=== PATIENT | female | born 1945 | race Caucasian/White ===

== ENCOUNTER → 2023-12-16 12:14 | Outpatient (REF) | payer OTHER, SELFPAY ==
[2023-12-16 13:12] LABS: Hematocrit 33.1 % (37.0-47.0); Hemoglobin 9.9 g/dL (12.0-16.0); Mean Corp Hgb Conc. 29.9 g/dL (33.0-37.0); Mean Corpuscular Hgb 28.7 pg (27.0-31.0); Mean Corpuscular Volume 95.9 fL (81.0-99.0); Mean Platelet Volume 10.7 fL (7.4-10.4); Platelet Count 189 10^3/uL (130-400); Red Blood Cell Count 3.45 10^6/uL (4.20-5.40); Red Cell Dist. Width 13.5 % (11.5-14.5); White Blood Cell Count 6.9 10^3/uL (4.8-10.8)
[2023-12-16 13:28] LABS: ALT (SGPT) 12 U/L (0-35); AST (SGOT) 19 U/L (14-36); Albumin 3.7 g/dl (3.5-5.0); Alkaline Phosphatase 57 U/L (38-126); Blood Urea Nitrogen 21 mg/dl (7-17); Carbon Dioxide 39 mmol/L (22-30); Chloride 99 mmol/L (98-107); Glucose 89 mg/dl (70-99); HDL Cholesterol 52 mg/dl; LDL Cholesterol, Calculated 65 mg/dl; Potassium 4.3 mmol/L (3.5-5.1); Sodium 141 mmol/L (135-145); Total Bilirubin 0.3 mg/dl (0.2-1.3); Total Cholesterol 134 mg/dl (50-199); Total Protein 6.5 g/dl (6.3-8.2); Triglyceride 85 mg/dl (10-149); Very Low Density Lipoprotein 17 mg/dl (0-30); eGFR > 60.00
[2023-12-16 13:41] LABS: Vitamin D, 25-OH*** 46.7 ng/mL (30-80)
[2023-12-16 14:27] LABS: Iron 46 ug/dl (37-170)
[2023-12-16 15:00] LABS: Vitamin B12 345 pg/ml (239-931)
== END ==
LOC: OLABN 12:14
PROVIDERS: ATTENDING PHYSICIAN Internal Medicine Geriatric Medicine
DX: E78.5 Hyperlipidemia, unspecified (principal); J44.9 Chronic obstructive pulmonary disease, unspecified; E55.9 Vitamin D deficiency, unspecified
CPT/HCPCS: 36415; 80053; 80061; 82306; 82607; 83540; 85027

== ENCOUNTER → 2023-12-30 11:02 | Outpatient (REF) | payer OTHER, SELFPAY ==
[2023-12-30 11:18] LABS: % Basophils 0.9 % (0-2); % Eosinophils 2.2 % (0-6); % Immature Granulocytes 0.2 % (0-0.5); % Lymphocytes 25.6 % (20.5-51.1); % Monocytes 7.3 % (1.7-9.3); % Neutrophils 63.8 % (42.2-75.2); Absolute Basophils 0.1 10^3/uL (0-0.2); Absolute Eosinophils 0.1 10^3/uL (0-0.7); Absolute Lymphocytes 1.5 10^3/uL (1.2-3.4); Absolute Monocytes 0.4 10^3/uL (0.1-0.6); Absolute Neutrophils 3.7 10^3/uL (1.4-6.5); Hematocrit 31.2 % (37.0-47.0); Hemoglobin 9.6 g/dL (12.0-16.0); Mean Corp Hgb Conc. 30.8 g/dL (33.0-37.0); Mean Corpuscular Hgb 28.5 pg (27.0-31.0); Mean Corpuscular Volume 92.6 fL (81.0-99.0); Mean Platelet Volume 10.5 fL (7.4-10.4); Nucleated Red Blood Cells % 0 %; Platelet Count 193 10^3/uL (130-400); Red Blood Cell Count 3.37 10^6/uL (4.20-5.40); Red Cell Dist. Width 13.6 % (11.5-14.5); White Blood Cell Count 5.9 10^3/uL (4.8-10.8)
== END ==
LOC: OLABN 11:02
PROVIDERS: ATTENDING PHYSICIAN Internal Medicine Geriatric Medicine
DX: D64.9 Anemia, unspecified (principal)
CPT/HCPCS: 36415; 85025

== ENCOUNTER → 2024-01-13 09:13 | Outpatient (REF) | payer MEDICARE, SELFPAY ==
[2024-01-13 10:41] LABS: Hematocrit 32.2 % (37.0-47.0); Hemoglobin 9.9 g/dL (12.0-16.0); Mean Corp Hgb Conc. 30.7 g/dL (33.0-37.0); Mean Corpuscular Volume 94.4 fL (81.0-99.0); Mean Platelet Volume 10.7 fL (7.4-10.4); Platelet Count 181 10^3/uL (130-400); Red Blood Cell Count 3.41 10^6/uL (4.20-5.40); Red Cell Dist. Width 13.5 % (11.5-14.5); White Blood Cell Count 6.1 10^3/uL (4.8-10.8)
== END ==
LOC: OLABN 09:13
PROVIDERS: ATTENDING PHYSICIAN Internal Medicine Geriatric Medicine
DX: D64.9 Anemia, unspecified (principal)
CPT/HCPCS: 36415; 85027

== ENCOUNTER 2024-01-13 17:05 | Observation (INO) | payer MEDICARE, SELFPAY ==
[2024-01-13] VITALS (7 sets, daily range): BP systolic 98–168; BP diastolic 49–87; BMI 28.7; BMI 28.3
[2024-01-13 14:12] LABS: % Basophils 0.9 % (0-2); % Eosinophils 1.6 % (0-6); % Immature Granulocytes 0.2 % (0-0.5); % Lymphocytes 16.7 % (20.5-51.1); % Monocytes 5.2 % (1.7-9.3); % Neutrophils 75.4 % (42.2-75.2); Absolute Basophils 0.1 10^3/uL (0-0.2); Absolute Eosinophils 0.1 10^3/uL (0-0.7); Absolute Lymphocytes 1.4 10^3/uL (1.2-3.4); Absolute Monocytes 0.4 10^3/uL (0.1-0.6); Absolute Neutrophils 6.2 10^3/uL (1.4-6.5); Hematocrit 35.4 % (37.0-47.0); Hemoglobin 11.1 g/dL (12.0-16.0); Mean Corp Hgb Conc. 31.4 g/dL (33.0-37.0); Mean Corpuscular Hgb 28.5 pg (27.0-31.0); Mean Corpuscular Volume 90.8 fL (81.0-99.0); Nucleated Red Blood Cells % 0 %; Platelet Count 211 10^3/uL (130-400); Red Cell Dist. Width 13.5 % (11.5-14.5); White Blood Cell Count 8.2 10^3/uL (4.8-10.8)
[2024-01-13 14:23] LABS: APTT 29.7 Sec (23.4-35.0)
[2024-01-13 14:30] LABS: ALT (SGPT) 14 U/L (0-35); AST (SGOT) 22 U/L (14-36); Albumin 4.3 g/dl (3.5-5.0); Alkaline Phosphatase 61 U/L (38-126); Blood Urea Nitrogen 21 mg/dl (7-17); Calcium 9.5 mg/dl (8.4-10.2); Carbon Dioxide 37 mmol/L (22-30); Chloride 99 mmol/L (98-107); Glucose 105 mg/dl (70-99); Potassium 4.3 mmol/L (3.5-5.1); Sodium 141 mmol/L (135-145); Total Bilirubin 0.3 mg/dl (0.2-1.3); Total Protein 7.7 g/dl (6.3-8.2); eGFR > 60.00
--- NOTE | 2024-01-13 14:44 | CON.NEURO4 ---
Addendum entered and electronically signed by Everette Wheatley MD 01/13/24 17:26:
I saw and evaluate the patient I reviewed the note by Mary Lima agree with the following the findings with the following comments:
78-year-old woman with a past ministry of hyperlipidemia presented to hospital after referral from ophthalmology due to painless significant right eye vision loss that started on Saturday. Patient has a history of baseline visual difficulties from
dry macular degeneration. Her right eye vision seem to be very urbina with poor color and light and this began on 01/09 spontaneously without any provocation no head or neck trauma or injuries to the eye. No unusual headaches or jaw claudication
recently no fevers chills or unusual weight loss. She denies any history of migraine headaches with photophobia phonophobia or significant head pain with nausea or limitation in function. No history of TIA or stroke or heart attack. She does take
statin but does not take any medications for blood pressure.
Neurologic examination shows normal mental status
Pupils have significant pharmacologic dilation, no hemianopia speech dysarthria smile symmetric tongue midline
Motor examination no pronator drift no abnormal movements or focal asymmetric weakness
CT head noncontrast unremarkable
Assessment: Concern for a central retinal artery versus branch retinal artery occlusion on the right, less likely a left-sided occipital ischemic stroke. Outpatient ophthalmology evaluation we can feel fairly confident and excluded any other
primary ophthalmic issues.
Recommendations
-DAPT therapy
-Cardiac telemetry
-Transthoracic echocardiogram
-Brain MRI and MRA head and neck
-Neurologic check NIH scale
-Hemoglobin A1c and lipid panel
Will follow
Original Note:
Documented by User: Mary Dobbins NP 01/13/24 15:44
Consultation - Neurology 4
-
CONSULTING PHYSICIAN: Oma Wheatley MD
REFERRING PHYSICIAN: MARTIN/Lucio Limon PA-C
DICTATED BY: RORY Crowder
DATE/TIME OF REQUEST: 01/13/24
DATE/TIME OF CONSULTATION: 01/13/24
Reason for Consultation: Right eye vision loss
History of Present Illness:
This is a 78-year-old right-handed female who has presented to the hospital with report of right eye vision loss. At baseline, patient has bilateral dry macular degeneration. Her left eye vision is poor but she can read large print with it. Her
right eye vision is her worse eye and at baseline she only can see colors, light, and general shadows of things. Patient reports being in her usual state three days ago on 01/10/24. When she returned to her room that evening, she reports feeling
'weird,' which she can't describe further, and suddenly her right eye vision became a dim urbina, then went completely black. She informed staff at [facility] and was told to schedule an appointment with her machine feeder Dr. Stoll as soon as
possible. She saw Dr. Stoll today, who reported not seeing any structural issue with her eyes on exam, and referred her to the ER for evaluation. CT head noncontrast is pending. She is not a candidate for TNK/IAT due to being outside of the time
window. She denies any headache, dizziness, speech/swallow difficulty, jaw pain with chewing, numbness, weakness, nausea, chest pain, palpitations, and shortness of breath. She denies any history of migraine, unusual weight loss, TIA, stroke, or
vision loss like this in the past. She is not taking any blood-thinning medications. At baseline she wears home oxygen and for the past two years she has used a rolling walker for ambulation. She reports that when she walks 10+ feet she becomes
short of breath and bilateral legs start feeling week.
Past Medical History: HTN, HLD, COPD, bilateral dry macular degeneration, breast cancer, depression, anxiety, insomnia, lumbar radiculopathy, sensorineural hearing loss, solitary pulmonary nodule
Surgical History: Left mastectomy, intraocular lens implant
Family History: Sister- CVA.
Social History: Former smoker x40 years, quit 6 years ago. Denies alcohol and illicit drug use.
Allergies: No known allergies.
Home Medications: See below.
Review of Symptoms:
Patient denies any fever, headache, chest pain, shortness of breath, GI or symptoms.
�Per the HPI.�All systems are reviewed negative except above.
Physical Exam:
The patient is afebrile, abdomen is nondistended, breathing is unlabored, skin is warm and dry, no edema.
NIH Stroke Scale:
I performed the NIH stroke scale on the patient on 01/13/24 at 1515. The patient scored 2 points on the NIH stroke scale assessment, which were assigned as follows: See below.
Neurologic Examination:
The patient is awake, alert and oriented x 3. She is able to follow commands and answer questions appropriately. There is no aphasia or dysarthria. On cranial nerve assessment, pupils were dilated today and are 5 mm bilateral, round and minimally
to light and accommodation. Visual beal are absent in the right eye, intact in the left eye. Extraocular movements are intact. Facial sensations are intact and bilaterally symmetrical, there is no facial asymmetry. Hearing is intact bilaterally to
normal conversation volume. Tongue palate and uvula are midline. Sternocleidomastoid strengths are full bilaterally. Motor strengths are 5/5 bilateral upper and lower extremities on medical research [place] scale. There is no drift or involuntary
movement noted. Deep tendon reflexes are 2+ bilateral upper and lower extremities and Babinski is absent bilaterally. Sensations of touch, temperature and vibration are intact and bilaterally symmetrical. There was no extinction noted on double
simultaneous stimulation. Coordination is intact by finger to nose bilaterally.
Lab Results: See below.
Neuro Imaging:
1. CT Head 01/13/24: pending.
Differentials for the patient's presentation include:
1. Right eye BRAO likely producing right eye vision loss.
2. R ICA stenosis possible but less likely to be producing symptoms as no previous episodes of amaurosis fugax.
3. Ischemic stroke to the occipital lobe less likely given one-sided symptoms.
Patient has the following risk factors for their symptoms: HTN, HLD, macular degeneration
IV Tenecteplase/IAT candidacy: Not a candidate due to outside of time window.
Recommendations:
-Provide loading dose of aspirin 325mg and Plavix 300mg x1 now.
-Continue DAPT for 21 days. After 21 days, discontinue Plavix and continue aspirin 81mg daily only, indefinitely.
-CT head noncontrast pending.
-MRI brain noncontrast, MRA head/neck pending.
-Provide lorazepam 1mg IV x1 on-call for MRI due to claustrophobia.
-Goal normotension.
-LDL goal <70. Lipid panel pending. Continue home rosuvastatin 20mg daily for now.
-Goal normoglycemia, hbA1c pending.
-NIHSS and neurological checks per unit guidelines.
-PT/OT evaluations.
-Provide patient with a stroke education packet.
-DVT prophylaxis.
-Will follow.
Discussed patient care with: Dr. Wheatley, the patient, patient's family
Vital Signs and Labs
-
Vital Signs and Labs:
Vital Signs
Temp Pulse Resp BP Pulse Ox
98.2 F 92 18 125/71 92
01/13/24 13:53 01/13/24 13:53 01/13/24 13:53 01/13/24 14:46 01/13/24 13:53
Lab Results
01/13/24 14:03
01/13/24 14:03
PT 13.0 Sec (11.4-14.6) 01/13/24 14:03
INR 1.00 01/13/24 14:03
APTT 29.7 Sec (23.4-35.0) 01/13/24 14:03
Sodium 141 mmol/L (135-145) 01/13/24 14:03
Potassium 4.3 mmol/L (3.5-5.1) 01/13/24 14:03
BUN 21 mg/dl (7-17) H 01/13/24 14:03
Glucose 105 mg/dl (70-99) H 01/13/24 14:03
Calcium 9.5 mg/dl (8.4-10.2) 01/13/24 14:03
NIH Stroke Score
Subsequent NIH Scale
Date of Subsequent NIH Scale: 01/13/24
Time of Subsequent NIH Scale: 15:15
NIH Stroke Score
Level of Consciousness: 0 - Alert
LOC Questions: 0-Answers both correctly
LOC Commands: 0-Performs both correctly
Best Horizontal Gaze: 0-Normal
Visual Beal: 2=Full hemianopia
Facial Palsy: 0=Normal, symmetrical
Motor - Right Arm: 0=No drift 10 seconds
Motor - Left Arm: 0=No drift 10 seconds
Motor - Right Le-No drift 5 seconds
Motor - Left Le-No drift 5 seconds
Limb Ataxia: 0-Absent
Sensation: 0-Normal
Best Language: 0-No aphasia
Dysarthria: 0-Normal
Extinction and Inattention: 0-No abnormality
Total Score:: 2
Modified [place] (mRS) Score
Modified [place] Scale (mRS): No significant disability. Able to carry out usual activities.
Score: 1
Alteplase Contraindication
Inclusion and Exclusion criteria reviewed: Yes
Reasons for NON-Tx with Thrombolytics ABSOLUTE Exclusions: Greater than 4.5 hrs from onset of sxs

Documented by User: Everette Wheatley MD 01/13/24 17:24
NIH Stroke Score
NIH Stroke Score
Total Score:: 2
Modified [place]i (mRS) Score
Score: 1
--- NOTE | 2024-01-13 15:31 | ED.CVA ---
History of Present Illness
General
Chief Complaint: CVA/TIA Symptoms
Source: patient and records
Time Seen by Provider: 01/13/24 14:13
Onset of Stroke Symptoms
Onset of symptoms known: Yes
Date of onset of symptoms: 01/10/24
Travel History
Have you had any contact with someone who has COVID-19?: No
Do you have any symptoms of coronavirus? Fever > 100 degrees, chills, cough, shortness of breath, sore throat, loss of taste or smell, muscle aches, or headache?: No
History of Present Illness
History of Present Illness:
78-year-old female with past medical history of COPD and macular degeneration presenting to the emergency department for evaluation after she was seen by her chief ii dispatcher today who was concerned that patient may have had a central retinal artery
occlusion in the right eye. Patient states on Saturday evening she noticed she was unable to see anything out of her right eye (notes due to her macular degeneration she already has very poor vision out of this right eye but is still able to see
shapes and shadows but is no longer able to see this). Patient states that this was painless and has not had any headaches since. She attributed the vision changes to her macular degeneration which is why she did not present to the sooner. She
continues to deny any headaches, focal weakness or numbness, chest pain or shortness of breath, palpitations or any other concerns. Patient is currently not on any anticoagulant medication or aspirin.
Past History
Past History
ED Past Medical History: Cancer, COPD and Other (Macular degeneration)
ED Past Surgical History: Other (L masectomy)
Social History
Tobacco: Former smoker
Alcohol: None
Drug: None
Personal:
Living: snf
Employment: Other
Family History
Family History: Other
Review of Systems
Review of Systems
All Other Systems: ROS reviewed and negative except as documented in HPI and ROS
Phy Exam
Physical Exam
Physical Exam:
GENERAL: Alert , in no apparent distress
EYE: conjunctiva clear, Pupils 4 mm bilateral, patient with minimal to no vision in the right eye, left eye gross vision patient reports at its baseline
NECK: Supple, no carotid bruit
ENT: o/p clr, mmm.
CARDIAC: Regular rate and rhythm, no murmur
LUNGS: Clear breath sounds bilaterally, no acute respiratory distress, no wheezes/rales/rhonchi
NEUROLOGICAL: Alert and oriented x 3, moves all extremities, ambulates with steady gait
SKIN: Warm and dry, skin intact.
MUSCULOSKELETAL: well perfused.
PSYCH: Normal and appropriate interaction.
Scores
NIH Stroke Score
Level of Consciousness: 0 - Alert
LOC Questions: 0-Answers both correctly
LOC Commands: 0-Performs both correctly
Best Horizontal Gaze: 0-Normal
Visual Beal: 2=Full hemianopia
Facial Palsy: 0=Normal, symmetrical
Motor - Right Arm: 0=No drift 10 seconds
Motor - Left Arm: 0=No drift 10 seconds
Motor - Right Le-No drift 5 seconds
Motor - Left Le-No drift 5 seconds
Limb Ataxia: 0-Absent
Sensation: 0-Normal
Best Language: 0-No aphasia
Dysarthria: 0-Normal
Extinction and Inattention: 0-No abnormality
Total Score:: 2
Thrombolytic Contraindication
Inclusion and Exclusion criteria reviewed: Yes
Reasons for NON-Tx with Thrombolytics ABSOLUTE Exclusions: Greater than 4.5 hrs from onset of sxs
Heart Failure Risk
Heart Failure Risk Score: Not Applicable
Heart Score for Chest Pain Patients
STEMI patient?: Not applicable
Withdrawal Assessment of Alcohol
Withdrawal Assessment Completed?: Not applicable
Course
Orders/Labs/Results
Orders:
Orders
01/13/24 13:[address] [CT Head W/o Iv Contrast] Urgent
Comment:
Reason For Exam: right eye blindness
01/13/24 14:03
C-Reactive Protein Urgent
Comment: ADD ON
Complete Blood Count/With Diff Urgent
Comprehensive Metabolic Panel Urgent
Erythrocyte Sed Rate Urgent
Comment: ADD ON
Protime/PTT Urgent
01/13/24 14:19
Electrocardiogram (*1) Urgent
Reason for Study: TIA/Stroke
EKG- Treatment ONCE
01/13/24 14:23
Add On- LAB Urgent
Tests Added?: esr/crp
01/13/24 15:26
MA Neck With & W/o Contrast Routine
Comment:
Reason For Exam: right eye copmlete vision loss
Recent pill cam endoscopy?: No
MR Brain Without Contrast Routine
Comment:
Reason For Exam: right eye complete vision loss
Recent pill cam endoscopy?: No
01/13/24 15:27
MA [place] [facility] Routine
Comment:
Reason For Exam: stroke workup
Recent pill cam endoscopy?: No
01/13/24 15:29
Aspirin 325 mg PO NOW STA
Clopidogrel Bisulfate [Plavix] 300 mg PO NOW STA
01/13/24 15:38
0.9% Sodium Chloride [Nss (Preservative Free)] 0.5 ml IV PRN ONE
Lorazepam [Ativan] 1 mg IV PRN ONE
01/13/24 16:36
NEUROLOGY CONSULT Routine
Consulting Provider: Everette Wheatley
Was physician already notified: Yes
Reason for consult: worsening right eye vision impairment
01/13/24 16:57
Admit/Transfer Patient As Directed
Co-Sign Provider:
Level of Care: Observation services
Assign to:: Telemetry
Physician / Group: rachna marie
Diagnosis: right eye vision loss concern cva vs ica stenosis
Reason for Telemetry: CVA/TIA
Date to Stop Telemetry: 01/16/24
Time to Stop Telemetry: 11:00
Reason for Hospitalization: right eye vision loss concern cva vs ica stenosis
Expected length of stay greater than two midnights?: No
01/13/24 17:03
Code Status As Directed
Resuscitation Status: Do not resuscitate
Reached after discussion with pt or family/Healthcare POA: Yes
Based on pt advanced directive or healthcare POA form: Yes
Decision communicated with: per pt with daughter present
DNR Bracelet Application ONCE
01/16/24 11:00
DC Protocol for Telemetry ONCE
Abnormal Lab Results
01/13/24
14:03
RBC 3.90 L 10^6/uL
(4.20-5.40)
Hgb 11.1 L g/dL
(12.0-16.0)
Hct 35.4 L %
(37.0-47.0)
MCHC 31.4 L g/dL
(33.0-37.0)
Neutrophils % 75.4 H %
(42.2-75.2)
Lymphocytes % 16.7 L %
(20.5-51.1)
ESR 30 H mm/hour
(0-20)
Carbon Dioxide 37 H mmol/L
(22-30)
BUN 21 H mg/dl
(7-17)
Creatinine 0.5 L mg/dL
(0.6-1.0)
Glucose 105 H mg/dl
(70-99)
01/13/24 14:03
01/13/24 14:03
Vital Signs
Initial and Last Documented VS:
Initial Vital Signs
Temp Pulse Resp BP Pulse Ox
98.2 F 92 18 134/68 92
01/13/24 13:53 01/13/24 13:53 01/13/24 13:53 01/13/24 13:53 01/13/24 13:53
Last Documented Vital Signs
Temp Pulse Resp BP Pulse Ox
98.2 F 85 14 134/53 92
01/13/24 13:53 01/13/24 15:15 01/13/24 15:15 01/13/24 15:01 01/13/24 13:53
MDM/Problems Addressed
Differential Diagnosis Includes:
CVA, giant cell arteritis, worsening macular degeneration
MDM/Problems Addressed:
78-year-old female presenting to the emergency department for evaluation of right eye visual loss since Saturday. Symptoms are not improved and persistent. Seen by ophthalmology today and was noted to not have any significant ophthalmologic
complications and there was concern for central retinal artery occlusion/ocular stroke. Labs and CT imaging ordered. Will consult with neurology. Anticipate admission for further evaluation and treatment.
*Radiology
Radiology exam reviewed: radiology read reviewed
*Pulse Oximetry
Patient hypoxic: no
*EKG
Interpreted by ED Provider?: Yes
Comparison EKG: no changes
Heart Rate: 71
Rate: normal
Rhythm: sinus
Ischemia: no ischemia
*Social Media Content Manager Interpretation
Rate: normal
Rhythm: sinus
*Critical Care Note
Total Time (30-74mins, 75-104mins- exclusive of procedures): Not Applicable
Patient Management
Discussion with other providers: Hospitalist and Sleep Medicine Physician
Escalation/DeEscalation of care consider admission/obs:
Patient seen by neurology who recommends MRI/MRA. They would like aspirin and Plavix loading. This was ordered in the emergency department. Hospitalist team was notified and accepts for continued evaluation and treatment of suspected CVA
ED Attending Note
-
Portions of this chart may have been created with voice recognition software.� Occasional wrong word or��sound alike� substitutions may have occurred due to the inherent limitations of voice recognition software.
Discharge Plan
Departure
Patient Disposition: Admit
Date of Disposition: 01/13/24
Time of Disposition: 15:31
Presentation/result/management discussed w/ accepting MD/DO: Hospitalist
Discharge Problem:
Acute CVA (cerebrovascular accident)
Interventions
Interventions:
*Risk Screen - Suicide Last Done: 01/13/24 13:53
*General Assessment Last Done: 01/13/24 13:53
*Neglect/Abuse Screening Last Done: 01/13/24 13:53
ED- Fall Risk Assessment Last Done: 01/13/24 17:26
*ED COVID-19 Vaccine History Last Done: 01/13/24 13:53
ED- Cardiac Assessment Last Done: 01/13/24 17:24
ED- Neurological Assessment Last Done: 01/13/24 14:47
ED- Pulmonary Assessment Last Done: 01/13/24 14:50
ED Swallowing Screen Last Done: 01/13/24 14:46
[2024-01-13] MEDS: ASPIRIN 325 MG PO (15:53)
[2024-01-13] MEDS: PLAVIX 300 MG PO (15:53)
--- NOTE | 2024-01-13 16:33 | HPS.HSE ---
Addendum entered and electronically signed by Telly Littlejohn MD 01/13/24 17:15:
Seen and examined by me independently in collaboration with the nurse practitioner Cynthia.
Past medical history/social history/medication/allergies reviewed.
Lab data and imaging data reviewed.
Patient with bilateral macular degeneration worse on the right side presented with right-sided monocular complete vision loss since Saturday. Saw director of psychology today who did not apparently feel any primary ophthalmic issue and sent him to ER for
stroke evaluation. Denies any other associated neurological deficit currently. Nonfocal neurologically other than the visual loss.
She does have risk factors for hyperlipidemia and hypertension but no prior history of strokes. No history of diabetes mellitus.
Admit to hospital for stroke workup. Initial CT head shows no evidence of acute strokes or bleeding.
Seen by neurology. Initiated on DAPT. MRI of the brain and MRA of the head and neck requested.
No clinical symptomatology of GA arteritis. Check ESR and CRP.
Original Note:
Family Physician
-
Family Physician: [facility]
Chief Complaint
-
Acute onset right eye vision loss x 3 days
History of Present Illness
78-year-old female complaining of abrupt onset right eye vision loss worse than baseline where she can only see colors, light and shapes. This occurred on 01/10/2024 and has not improved. She also has left eye vision impairment can only be large
print secondary to dry macular degeneration. She reports her right eye vision became medium grade and went completely black she informed staff extremity monitor and was advised to make an appointment with director of psychology whom she saw today. He do
not see any structural issues with iron and referred her to evaluation in the ER. She denies headache, dizziness, weakness, chest pain, palpitations, shortness breath or cough, abdominal pain, nausea, vomiting, diarrhea, urinary symptoms. She is
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
breast cancer, lumbar radiculopathy, chronic ambulatory dysfunction uses rollator at baseline
Medical History
Past Medical History
Past Medical History: Reports Other
Additional Past Medical History:
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
hearing loss
HTN
HLD
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
former smoker x 40 years quit 6 years ago
depression
anxiety
insomnia
breast cancer with left lumpectomy
lumbar radiculopathy
chronic ambulatory dysfunction uses rollator at baseline
Past Surgical History: Reports Other (Left breast lumpectomy secondary to breast cancer 20 years ago Bilateral Cataract extraction with lens implants)
Social History
Tobacco: Former Smoker (40-year 1 pack a day, quit 6 years ago)
Alcohol: None
Drug: None
Personal: Single
Living: Intermediate ([facility])
Employment: Retired
Family History
Family History: Other (Sister CVA age 70, mother lung cancer, father age 95 old age, history of dementia)
Allergies / Home Medications
Allergies reflects when Allergies were last updated in [facility].
Home Medications with original date entered in [facility]
Allergy/Medication List:
Allergies
Allergy/AdvReac Type Severity Reaction Status Date / Time
No Known Allergies Allergy Verified 01/13/24 13:57
Home Medications
acetaminophen 325 mg tablet 650 mg PO Q4HPRN PRN fever >100.4 01/13/24
acetaminophen 500 mg tablet 1,000 mg PO Q6HPRN PRN mild pain 01/13/24
albuterol sulfate 2.5 mg/3 mL (0.083 %) solution for nebulization 2.5 mg inhalation R BID 01/13/24
albuterol sulfate 2.5 mg/3 mL (0.083 %) solution for nebulization 2.5 mg inhalation R Q4HPRN PRN wheezing 01/13/24
albuterol sulfate 90 mcg/actuation aerosol inhaler 2 puff inhalation R Q4HPRN PRN sob 01/13/24
azithromycin 250 mg tablet 250 mg PO MOWEFR 01/13/24
benzocaine 6 mg-menthol 10 mg lozenges 1 juan mucous membrane Q2HPRN PRN sore throat 01/13/24
benzonatate 100 mg capsule 100 mg PO Q8HPRN PRN cough 01/13/24
bisacodyl 10 mg rectal suppository 10 mg [place] [id number] PRN day 3 no bm, mom ineffective 01/13/24
budesonide 0.5 mg/2 mL suspension for nebulization 0.25 mg inhalation R BID 01/13/24
budesonide 160 mcg-glycopyr 9 mcg-formot 4.8 mcg/actuation HFA inhaler 2 inh inhalation R BID 01/13/24
calcium carbonate 600 mg PO DAILY 01/13/24
celecoxib 200 mg capsule 200 mg PO DAILY 01/13/24
cetirizine 10 mg tablet 10 mg PO DAILY 01/13/24
cholecalciferol (vitamin D3) 1,250 mcg (50,000 unit) tablet 1,250 mcg PO QMONTH 01/13/24
cyanocobalamin (vitamin B-12) 500 mcg tablet 500 mcg PO MOWEFR 01/13/24
guaifenesin 600 mg tablet, extended release 12 hr 600 mg PO BID 01/13/24
lidocaine 4 % topical patch 1 patch topical DAILY lower back 01/13/24
magnesium hydroxide 400 mg/5 mL oral suspension (Milk of Magnesia) 30 ml PO HSPRN PRN constipation 01/13/24
melatonin 5 mg tablet 5 mg PO HS 01/13/24
polyvinyl alcohol-povidone (PF) 1.4 %-0.6 % eye drops in a dropperette 1 drp BOTH EYES BID 01/13/24
rosuvastatin 20 mg tablet 20 mg PO HS 01/13/24
sertraline 100 mg tablet 100 mg PO DAILY 01/13/24
sodium chloride 0.65 % nasal spray aerosol (Saline Mist) 2 spray intranasal DAILYPRN PRN dry nose 01/13/24
trazodone 50 mg tablet 50 mg PO HS 01/13/24
vit C 250 mg-vit E 90 mg-zinc 40 mg-copper 1 [id number]-necyrc capsule (PreserVision AREDS-2) 1 tab PO BID 01/13/24
Review of Systems
-
History Source: Patient and Family (daughter at bedside )
A 12 point ROS was completed and negative except as noted: Yes
Constitutional: Denies Fever or Chills
EENT: Reports Other (right eye impaired vision seeing black only , baseline left eye chronic vision impairment ); Denies Sore Throat or Runny Nose
Respiratory: Denies Cough or Trouble Breathing
Cardiac: Denies Chest Pain, Diaphoresis, Palpitations or Syncope
Abdomen/GI: Denies Abdominal Pain, Nausea, Vomiting, Diarrhea, Constipated, Bloody Stools or Black Stools
: Denies Dysuria, Frequency, Flank Pain, Incontinence or Difficulty Voiding
Musculoskeletal: Denies Joint Pain or Edema
Skin: Denies Itching or Rash
Neurological: Denies Dizzy, Headache or Weakness
Endocrine: Reports No Symptoms
Hematologic/Lymphatic: Reports No Symptoms
Psych: Reports Calm
Physical Exam
Vital Signs
Vital Signs
Temp Pulse Resp BP Pulse Ox
98.2 F 85 14 134/53 92
01/13/24 13:53 01/13/24 15:15 01/13/24 15:15 01/13/24 15:01 01/13/24 13:53
Physical Exam
General: Comfortable, Conversant and Obese; No Pain, Fever or Chills
HEENT: NormoCephalic, Anicteric, Bernice Conjunctivae, No Ptosis, Oxygen (Chronic 4 L nasal cannula dependent) and Other (Chronic jamshid left eye hx cat ext with lens implants, pupils reactive to light, right eye can see some lightness with light
shining on eye during exam right eye impaired vision seeing black only , baseline left eye chronic vision impairment )
Respiratory: Clear; No Wheezes, Rales or Rhonchi
Cardiac: S1/S2 and Regular Rhythm; No Murmur, Rub, Gallop or Peripheral Edema
Breast: Deferred by me
GI: Soft, Non Tender, Normal Bowel Sounds and No Hepatosplenomegaly
Rectal: Deferred by Provider
Genito-urinary: Deferred by me
Musculoskeletal: No Clubbing, No Cyanosis and No Edema
Skin: Warm and Dry; No Rash
Neuro: AO x 3, No Motor Deficits, Cranial Nerves Intact and Other (Chronic vision impairment bilaterally, chronic hearing loss); No Slurred Speech, Facial Droop or Tremors
Psych: Calm
Laboratory Results
-
01/13/24 14:03
01/13/24 14:03
Laboratory Results
PT 13.0 Sec (11.4-14.6) 01/13/24 14:03
INR 1.00 01/13/24 14:03
APTT 29.7 Sec (23.4-35.0) 01/13/24 14:03
Total Bilirubin 0.3 mg/dl (0.2-1.3) 01/13/24 14:03
AST 22 U/L (14-36) 01/13/24 14:03
ALT 14 U/L (0-35) 01/13/24 14:03
Alkaline Phosphatase 61 U/L (38-126) 01/13/24 14:03
Impression/Plan
-
Impression/plan:
Observation telemetry
#Worsening right eye vision loss concern for CVA/ICA stenosis
#Hx bilateral dry macular degeneration, chronic left eye vision impairment, chronic right eye vision impairment
-Consult neurology
-Neurochecks every 4 hours
-Aspirin 325 mg now Plavix 300 mg now
-Continue aspirin 81 mg daily, Plavix 75 mg daily x 21 days
-HOLD CELEBREX while on Plavix
-MRI MRA brain and neck with preop Ativan for claustrophobia
-Check lipid panel, continue Crestor 20 mg now
-Check A1c
-Continue eyedrops, PreserVision
-Check ESR CRP concern giant cell arteritis
PT/OT/case management eval
#HTN�benign
BP 134/53 > 98/87
-No current medication
#HLD
-Check lipid profile, continue Crestor
#COPD/chronic 4 L nasal cannula dependent,�no acute exacerbation
Hx solitary pulmonary nodule
Hx former smoker x 40 years quit 6 years ago
-continue budesonide, formoterol, chronic Zithromax to 50 mg Saturday, albuterol
#Depression/anxiety
-Continue Zoloft 100 mg daily, trazodone 50 mg at bedtime
#Insomnia
-Continue melatonin 5 mg at bedtime
#Lumbar radiculopathy
#Chronic ambulatory dysfunction--Uses rollator at baseline
-HOLD CELEBREX while on Plavix
-PT/OT
#GERD
-Continue calcium carbonate
#Breast CA status post lumpectomy 20 years ago
DVT prophylaxis
SCDs
DNR per patient with daughter at bedside
-
[2024-01-13 16:40] LABS: C-Reactive Protein < 5.00 mg/L (0.0-10.00)
[2024-01-13 16:57] LABS: Erythrocyte Sed Rate 30 mm/hour (0-20)
[2024-01-13] MEDS: VITAMIN B-12 500 MCG PO (18:43)
[2024-01-13] MEDS: SYMBICORT 160/4.5 MCG INHALER 2 PUFF INH (19:22)
[2024-01-13] MEDS: PULMICORT 0.25 MG INH (19:23)
[2024-01-13] MEDS: VENTOLIN NEBULES 2.5 MG INH (19:23)
[2024-01-13] MEDS: OCUVITE SOFTGEL 1 CAP PO (20:27)
[2024-01-13] MEDS: MUCINEX 600 MG PO (20:27)
[2024-01-13] MEDS: REFRESH EYE DROPS (PF) 1 DROPS BOTH EYES (20:27)
[2024-01-13] MEDS: DRISDOL (VITAMIN D2) 50000 UNITS PO (20:27)
[2024-01-13] MEDS: CRESTOR 20 MG PO (21:06)
[2024-01-13] MEDS: DESYREL 50 MG PO (21:06)
[2024-01-13] MEDS: MELATONIN 5 MG PO (21:06)
[2024-01-14 03:00] VITALS: BP 103/77
[2024-01-14 05:38] LABS: % Basophils 0.7 % (0-2); % Eosinophils 2.8 % (0-6); % Immature Granulocytes 0.2 % (0-0.5); % Lymphocytes 25.1 % (20.5-51.1); % Monocytes 6.6 % (1.7-9.3); % Neutrophils 64.6 % (42.2-75.2); Absolute Eosinophils 0.2 10^3/uL (0-0.7); Absolute Lymphocytes 1.5 10^3/uL (1.2-3.4); Absolute Monocytes 0.4 10^3/uL (0.1-0.6); Absolute Neutrophils 3.7 10^3/uL (1.4-6.5); Hematocrit 32.3 % (37.0-47.0); Hemoglobin 9.9 g/dL (12.0-16.0); Mean Corp Hgb Conc. 30.7 g/dL (33.0-37.0); Mean Corpuscular Hgb 28.8 pg (27.0-31.0); Mean Corpuscular Volume 93.9 fL (81.0-99.0); Mean Platelet Volume 9.9 fL (7.4-10.4); Nucleated Red Blood Cells % 0 %; Platelet Count 162 10^3/uL (130-400); Red Blood Cell Count 3.44 10^6/uL (4.20-5.40); Red Cell Dist. Width 13.4 % (11.5-14.5); White Blood Cell Count 5.8 10^3/uL (4.8-10.8)
[2024-01-14 06:27] LABS: ALT (SGPT) 12 U/L (0-35); AST (SGOT) 20 U/L (14-36); Albumin 3.6 g/dl (3.5-5.0); Alkaline Phosphatase 54 U/L (38-126); Blood Urea Nitrogen 23 mg/dl (7-17); Calcium 8.8 mg/dl (8.4-10.2); Carbon Dioxide 38 mmol/L (22-30); Chloride 102 mmol/L (98-107); Estimated Creatinine Clearance 79 ml/min; Glucose 87 mg/dl (70-99); Potassium 4.2 mmol/L (3.5-5.1); Sodium 142 mmol/L (135-145); Total Bilirubin 0.3 mg/dl (0.2-1.3); Total Protein 6.4 g/dl (6.3-8.2); eGFR > 60.00
[2024-01-14] MEDS: SPIRIVA RESPIMAT 2.5 MCG 2 PUFF INH (07:12)
[2024-01-14] MEDS: SYMBICORT 160/4.5 MCG INHALER 2 PUFF INH (07:12)
[2024-01-14] MEDS: PULMICORT INH ×2 (07:12→07:19)
[2024-01-14] MEDS: VENTOLIN NEBULES INH (07:28)
[2024-01-14 07:40] VITALS: BP 151/61
[2024-01-14] MEDS: ATIVAN 1 MG IV (08:19)
[2024-01-14] MEDS: NSS (PRESERVATIVE FREE) 0.5 ML IV (08:19)
--- NOTE | 2024-01-14 08:27 | W.PN.NEURO.1 ---
Today's Communication / Plan
-
-MRI of the brain and MRA of the head reviewed
-Cardiac telemetry and check transthoracic echocardiogram
-Aspirin and clopidogrel DAPT therapy for total of 21 days and then continue on aspirin alone
-Home statin dose is sufficient given LDL 65 on most recent check
-Goal normoglycemia hemoglobin A1c pending
Neuro Assessment/Plan
Assessment
78-year-old woman with a past medical history of hyperlipidemia, dry macular degeneration, COPD presenting the hospital with painless sudden onset right eye vision loss which started on 01/09.
No recent unusual headaches jaw claudication fevers weight loss or myalgias.
Was seen by ophthalmology as an outpatient which did not see any acute ocular abnormality in the right eye was referred to the ER given concern for potential stroke of the eye.
Ophthalmology saw findings supportive of central retinal artery occlusion.
Vascular risk factors are previous smoking history, hyperlipidemia, possibly hypertension although patient not on any antihypertensive medications currently.
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
Atherosclerosis seen in vertebral arteries supportive of systemic atherosclerosis.
ESR minimally elevated at 30 patient with no thrombocytosis, no recent unusual headaches jaw claudication and myalgias malaise or weight loss clinically does not seem picture for giant cell/temporal arteritis.
Subjective/Objective
Subjective Data
Date of Service: January 14, 2024
Objective Data
Vital Signs
Temp Pulse Resp BP Pulse Ox
97.8 F 92 18 151/61 95
01/14/24 07:40 01/14/24 07:40 01/14/24 07:40 01/14/24 07:40 01/14/24 07:40
Lab Results
01/14/24 05:24
01/14/24 05:24
PT 13.0 Sec (11.4-14.6) 01/13/24 14:03
INR 1.00 01/13/24 14:03
APTT 29.7 Sec (23.4-35.0) 01/13/24 14:03
Sodium 142 mmol/L (135-145) 01/14/24 05:24
Potassium 4.2 mmol/L (3.5-5.1) 01/14/24 05:24
BUN 23 mg/dl (7-17) H 01/14/24 05:24
Glucose 87 mg/dl (70-99) 01/14/24 05:24
Calcium 8.8 mg/dl (8.4-10.2) 01/14/24 05:24
Patient Allergies
No Known Allergies Allergy (Verified 01/13/24 13:57)
[2024-01-14] MEDS: LIDOCAINE 4% PATCH 1 PATCH TOPICAL (10:48)
[2024-01-14] MEDS: OSCAL CAL 500 500 MG PO (10:49)
[2024-01-14] MEDS: PLAVIX 75 MG PO (10:55)
[2024-01-14] MEDS: ZOLOFT 100 MG PO (10:55)
[2024-01-14] MEDS: MUCINEX 600 MG PO (10:55)
[2024-01-14] MEDS: ZYRTEC 10 MG PO (10:56)
[2024-01-14] MEDS: LOW STRENGTH ASPIRIN 81 MG PO (10:56)
[2024-01-14] MEDS: REFRESH EYE DROPS (PF) 1 DROPS BOTH EYES (10:56)
[2024-01-14] MEDS: OCUVITE SOFTGEL 1 CAP PO (10:56)
[2024-01-14 11:45] VITALS: BP 143/53
--- NOTE | 2024-01-14 14:31 | W.PN.HOSP.TC ---
Today's Communication/Plan
-
DC planning
Assessment / Plan
Assessment / Plan
Acute right eye monocular vision loss-discussed with Dr. Stoll the opthalmologist who saw her in office yesterday-he noticed central retinal artery occlusion of the right eye and sent her to ER for further evaluation.
MRI of the brain is negative for acute stroke finding.
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
vertebral artery.No stenosis exceeding 50% in either internal carotid artery.
emboli is in DDX
Mild ESR elevation and normal CRP -no signs and symptoms of chain cell arteritis. No headaches, no jaw claudication, no ambulatory dysfunction.
roll winder shows tachycardia will ask cardiology to evaluate for any atrial arrhythmias.
CW DAPT for 21 days and statins
BP under goal mostly.
Echo noted with normal EF and mild MS/MR. No cardiac emboli so seen.
COPD on home O2-no exacerbation
Once seen by cardiology will discharge patient home.
Discussed with neurology today about the testing and the treatment plan.
DC after seen by PT/OT eval.
DW Daughter in law RN at and updated clincials and tx /follow up plan
Total time of dc 32 min
Anticipated Discharge: Today
Subjective/Interval History
-
Date of Service: January 14, 2024
Right eye with total anthony vision ,now little manager case management but still complete loss of vision persist in the right eye.
No new symptoms.
Objective Data
-
Labs:
Laboratory Results
01/14/24
05:24
WBC 5.8
Hgb 9.9 L
Hct 32.3 L
Plt Count 162 D
Sodium 142
Potassium 4.2
Chloride 102
Carbon Dioxide 38 H
BUN 23 H
Creatinine 0.5 L
Glucose 87
Calcium 8.8
Total Bilirubin 0.3
AST 20
ALT 12
Alkaline Phosphatase 54
Vital Signs:
Vital Signs
Temp Pulse Resp BP Pulse Ox
97.8 F 79 16 143/53 98
01/14/24 11:45 01/14/24 11:45 01/14/24 11:45 01/14/24 11:45 01/14/24 11:45
I&O
01/13/24 01/14/24 01/15/24
06:59 06:59 06:59
Intake Total 480 / 480
Balance 480 / 480
Review of Systems
-
Respiratory: Denies Trouble Breathing
Cardiac: Denies Chest Pain or Palpitations
Neuro: Denies Dizzy, Headache, Weakness, Numbness or Tremors
Physical Exam
-
General: No Apparent Distress
HEENT: Moist Mucous Membranes
Respiratory: Clear to Auscultation
Cardiac: Regular Rhythm and S1/S2; Negative Tachycardic
GI: Soft
Neuro: AO x 3 and No Motor Deficits; Negative Tremors, Slurred Speech or Facial Droop
Psych: Calm; Negative Confused
Data Reviewed
-
MRI: Report Reviewed by me (MRI brain and MRA head and neck)
Labs: Labs Reviewed by me
--- NOTE | 2024-01-14 14:50 | W.DS.TRANS ---
DC Summary - Senior Cost Analyst
-
Discharge Instructions:
Discharge Diagnosis/Procedures Acute right central retinal artery occlusion
with right monocular vision loss
Diet Low Cholesterol
Activity As tolerated
Driving Restrictions No driving
Bathing Restrictions None
Instructions:
Stand-Alone Forms:
Changes to Home Medications: Yes
Discharge Medications:
DC Medications w/original date entered in [facility]
acetaminophen 325 mg tablet 650 mg PO Q4HPRN PRN fever >100.4 01/13/24
albuterol sulfate 2.5 mg/3 mL (0.083 %) solution for nebulization 2.5 mg inhalation R BID Lung/Breathing Issues 01/13/24
albuterol sulfate 2.5 mg/3 mL (0.083 %) solution for nebulization 2.5 mg inhalation R Q4HPRN PRN wheezing 01/13/24
albuterol sulfate 90 mcg/actuation aerosol inhaler 2 puff inhalation R Q4HPRN PRN sob 01/13/24
azithromycin 250 mg tablet 250 mg PO MOWEFR Infection 01/13/24
benzocaine 6 mg-menthol 10 mg lozenges 1 juan mucous membrane Q2HPRN PRN sore throat 01/13/24
benzonatate 100 mg capsule 100 mg PO Q8HPRN PRN cough 01/13/24
bisacodyl 10 mg rectal suppository 10 mg [place] [id number] PRN day 3 no bm, mom ineffective 01/13/24
budesonide 0.5 mg/2 mL suspension for nebulization 0.25 mg inhalation R BID Lung/Breathing Issues 01/13/24
budesonide 160 mcg-glycopyr 9 mcg-formot 4.8 mcg/actuation HFA inhaler 2 inh inhalation R BID Lung/Breathing Issues 01/13/24
calcium carbonate 600 mg PO DAILY Supplement 01/13/24
cetirizine 10 mg tablet 10 mg PO DAILY Allergies 01/13/24
cholecalciferol (vitamin D3) 1,250 mcg (50,000 unit) tablet 1,250 mcg PO QMONTH Supplement 01/13/24
cyanocobalamin (vitamin B-12) 500 mcg tablet 500 mcg PO MOWEFR 01/13/24
guaifenesin 600 mg tablet, extended release 12 hr 600 mg PO BID Supplement 01/13/24
lidocaine 4 % topical patch 1 patch topical DAILY lower back pain 01/13/24
magnesium hydroxide 400 mg/5 mL oral suspension (Milk of Magnesia) 30 ml PO HSPRN PRN constipation 01/13/24
melatonin 5 mg tablet 5 mg PO HS Sleep 01/13/24
polyvinyl alcohol-povidone (PF) 1.4 %-0.6 % eye drops in a dropperette 1 drp BOTH EYES BID Eye Condition 01/13/24
rosuvastatin 20 mg tablet 20 mg PO HS High Cholesterol 01/13/24
sertraline 100 mg tablet 100 mg PO DAILY Depression 01/13/24
sodium chloride 0.65 % nasal spray aerosol (Saline Mist) 2 spray intranasal DAILYPRN PRN dry nose 01/13/24
trazodone 50 mg tablet 50 mg PO HS Sleep 01/13/24
vit C 250 mg-vit E 90 mg-zinc 40 mg-copper 1 [id number] capsule (PreserVision AREDS-2) 1 tab PO BID Supplement 01/13/24
aspirin 81 mg chewable tablet 81 mg PO DAILY #30 tabs 01/14/24
clopidogrel 75 mg tablet 75 mg PO DAILY #20 tabs 01/14/24
Home Medication Changes
Medication-aspirin and Plavix for 21 days and then discontinue with aspirin alone.
Pending Results: No
[2024-01-14 15:11] VITALS: BP 146/59
--- NOTE | 2024-01-14 15:23 | CM ---
Addendum entered by Valeria Byrne 01/14/24 15:43:
Spoke with pts son and daughter in law - pts son will transport nack to [facility]
RN aware
Original Note:
Met with pt at bedside
From LTC at [facility], [place] [facility]
Pt reports she ambulates with her rollator, uses oxygen / at baseline
DME - rollator, oxygen, nebulizer
PCP - [facility]
Pharm - meds from [place]
Has ride at d/c
Discussed [facility]
Plan - return to [facility]
R - [phone]
- [phone]
== END 2024-01-14 17:07 ==
LOC: 3 WEST ACU 17:05
PROVIDERS: Clinical Nurse Specialist Family Health; Emergency Medicine; ADMITTING PHYSICIAN Internal Medicine; CONSULT PHYSICIAN Student in an Organized Health Care Education/Training Program; EMERGENCY PHYSICIAN Emergency Medicine; FAMILY PHYSICIAN Internal Medicine Geriatric Medicine
DX: H34.11 Central retinal artery occlusion, right eye (principal); H53.8 Other visual disturbances; H35.30 Unspecified macular degeneration; I25.10 Atherosclerotic heart disease of native coronary artery without angina pectoris; J44.9 Chronic obstructive pulmonary disease, unspecified; H54.61 Unqualified visual loss, right eye, normal vision left eye; I67.1 Cerebral aneurysm, nonruptured; F32.A Depression, unspecified; F41.9 Anxiety disorder, unspecified; K21.9 Gastro-esophageal reflux disease without esophagitis; G31.9 Degenerative disease of nervous system, unspecified; I67.82 Cerebral ischemia; R26.2 Difficulty in walking, not elsewhere classified; G47.00 Insomnia, unspecified; M54.16 Radiculopathy, lumbar region; I10 Essential (primary) hypertension; E78.5 Hyperlipidemia, unspecified; H90.5 Unspecified sensorineural hearing loss; R91.1 Solitary pulmonary nodule; Z82.3 Family history of stroke; Z66 Do not resuscitate; Z79.02 Long term (current) use of antithrombotics/antiplatelets; Z79.82 Long term (current) use of aspirin; Z80.1 Family history of malignant neoplasm of trachea, bronchus and lung; Z82.0 Family history of epilepsy and other diseases of the nervous system; Z79.2 Long term (current) use of antibiotics; Z87.891 Personal history of nicotine dependence; Z79.1 Long term (current) use of non-steroidal anti-inflammatories (NSAID); Z85.3 Personal history of malignant neoplasm of breast; Z99.81 Dependence on supplemental oxygen
CPT/HCPCS: 70450; 70544; 70548; 70551; 80053; 85025; 85610; 85652; 85730; 86140; 87070; 93005; 93306; 94640; 99285; A9585; G0378

== ENCOUNTER → 2024-01-20 13:07 | Outpatient (REF) | payer MEDICARE, SELFPAY | LOC: HWRAD 13:07 | PROVIDERS: ATTENDING PHYSICIAN Internal Medicine Critical Care Medicine; FAMILY PHYSICIAN Internal Medicine Geriatric Medicine | DX: Z87.891 Personal history of nicotine dependence (principal) | CPT/HCPCS: 71271 ==

== ENCOUNTER → 2024-05-06 17:42 | Outpatient (REF) | payer MEDICARE, SELFPAY ==
[2024-05-06 18:14] LABS: Urine Albumin Negative (Neg - Trace); Urine Bilirubin Negative (Negative); Urine Character Clear (Clear); Urine Color Yellow; Urine Glucose Negative (Negative); Urine Ketone Negative (Negative); Urine Leukocyte Negative (Negative); Urine Nitrite Negative (Negative); Urine Occult Blood Negative (Negative); Urine Specific Gravity 1.015 (<1.030); Urine Urobilinogen Negative (Neg - 1+); Urine pH 6.5 (5.0-9.0)
== END ==
LOC: OLABN 17:42
PROVIDERS: ATTENDING PHYSICIAN Internal Medicine Geriatric Medicine
DX: R32 Unspecified urinary incontinence (principal); R35.1 Nocturia; R30.0 Dysuria
CPT/HCPCS: 81003; 87086

== ENCOUNTER → 2024-05-11 11:24 | Outpatient (REF) | payer MEDICARE, SELFPAY ==
[2024-05-11 12:44] LABS: Urine Albumin Negative (Neg - Trace); Urine Bilirubin Negative (Negative); Urine Character Clear (Clear); Urine Color Yellow; Urine Glucose Negative (Negative); Urine Ketone Negative (Negative); Urine Leukocyte Trace (Negative); Urine Nitrite Negative (Negative); Urine Occult Blood Negative (Negative); Urine Specific Gravity 1.015 (<1.030); Urine Urobilinogen Negative (Neg - 1+)
[2024-05-11 13:55] LABS: Urine Amorphous Seen; Urine Mucus Many
[2024-05-11 13:57] LABS: Urine Red Blood Cell 0-2 /HPF (0-2)
== END ==
LOC: OLABN 11:24
PROVIDERS: ATTENDING PHYSICIAN Internal Medicine Geriatric Medicine
DX: R32 Unspecified urinary incontinence (principal); R35.1 Nocturia; R30.0 Dysuria
CPT/HCPCS: 36415; 81003; 81015; 87086

== ENCOUNTER → 2024-06-22 10:08 | Outpatient (REF) | payer MEDICARE, SELFPAY ==
[2024-06-22 11:42] LABS: Urine Albumin Negative (Neg - Trace); Urine Bilirubin Negative (Negative); Urine Character Clear (Clear); Urine Color Yellow; Urine Glucose Negative (Negative); Urine Ketone Negative (Negative); Urine Leukocyte Negative (Negative); Urine Nitrite Negative (Negative); Urine Occult Blood Negative (Negative); Urine Urobilinogen Negative (Neg - 1+); Urine pH 6.5 (5.0-9.0)
[2024-06-22 11:43] LABS: % Basophils 0.4 % (0-2); % Immature Granulocytes 0.4 % (0-0.5); % Lymphocytes 10.4 % (20.5-51.1); % Monocytes 1.8 % (1.7-9.3); Absolute Lymphocytes 0.5 10^3/uL (1.2-3.4); Absolute Monocytes 0.1 10^3/uL (0.1-0.6); Absolute Neutrophils 3.9 10^3/uL (1.4-6.5); Hematocrit 34.4 % (37.0-47.0); Hemoglobin 10.6 g/dL (12.0-16.0); Mean Corp Hgb Conc. 30.8 g/dL (33.0-37.0); Mean Corpuscular Hgb 28.6 pg (27.0-31.0); Mean Corpuscular Volume 92.7 fL (81.0-99.0); Mean Platelet Volume 10.5 fL (7.4-10.4); Nucleated Red Blood Cells % 0 %; Platelet Count 202 10^3/uL (130-400); Red Blood Cell Count 3.71 10^6/uL (4.20-5.40); Red Cell Dist. Width 12.8 % (11.5-14.5); White Blood Cell Count 4.5 10^3/uL (4.8-10.8)
[2024-06-22 11:50] LABS: ALT (SGPT) 15 U/L (0-35); AST (SGOT) 20 U/L (14-36); Albumin 4.2 g/dl (3.5-5.0); Alkaline Phosphatase 51 U/L (38-126); Blood Urea Nitrogen 22 mg/dl (7-17); Carbon Dioxide 34 mmol/L (22-30); Chloride 100 mmol/L (98-107); Glucose 135 mg/dl (70-99); Potassium 5.1 mmol/L (3.5-5.1); Sodium 142 mmol/L (135-145); Total Bilirubin 0.2 mg/dl (0.2-1.3); Total Protein 7.1 g/dl (6.3-8.2); eGFR > 60.00
== END ==
LOC: OLABN 10:08
PROVIDERS: ATTENDING PHYSICIAN Internal Medicine Geriatric Medicine
DX: E78.5 Hyperlipidemia, unspecified (principal); R30.9 Painful micturition, unspecified
CPT/HCPCS: 80053; 81003; 85025; 87086

== ENCOUNTER 2024-09-10 21:02 | Observation (INO) | payer MEDICARE, SELFPAY ==
[2024-09-10] VITALS (10 sets, daily range): BP systolic 113–177; BP diastolic 40–91; BMI 27.4
[2024-09-10] MEDS: VALIUM 5 MG PO (18:06)
[2024-09-10] MEDS: DUONEB 3 ML INH (18:10)
[2024-09-10 18:20] LABS: % Basophils 0.7 % (0-2); % Immature Granulocytes 0.3 % (0-0.5); % Lymphocytes 18.8 % (20.5-51.1); % Monocytes 6.2 % (1.7-9.3); Absolute Basophils 0.1 10^3/uL (0-0.2); Absolute Eosinophils 0.2 10^3/uL (0-0.7); Absolute Lymphocytes 1.8 10^3/uL (1.2-3.4); Absolute Monocytes 0.6 10^3/uL (0.1-0.6); Hematocrit 36.2 % (37.0-47.0); Hemoglobin 11.3 g/dL (12.0-16.0); Mean Corp Hgb Conc. 31.2 g/dL (33.0-37.0); Mean Corpuscular Hgb 28.8 pg (27.0-31.0); Mean Corpuscular Volume 92.1 fL (81.0-99.0); Mean Platelet Volume 10.3 fL (7.4-10.4); Nucleated Red Blood Cells % 0 %; Platelet Count 238 10^3/uL (130-400); Red Blood Cell Count 3.93 10^6/uL (4.20-5.40); Red Cell Dist. Width 13.1 % (11.5-14.5); White Blood Cell Count 9.7 10^3/uL (4.8-10.8)
[2024-09-10 18:30] LABS: PT 12.6 Sec (11.4-14.6)
[2024-09-10 18:35] LABS: ALT (SGPT) 14 U/L (0-35); AST (SGOT) 22 U/L (14-36); Albumin 4.8 g/dl (3.5-5.0); Alkaline Phosphatase 65 U/L (38-126); Blood Urea Nitrogen 23 mg/dl (7-17); Calcium 9.7 mg/dl (8.4-10.2); Carbon Dioxide 38 mmol/L (22-30); Chloride 93 mmol/L (98-107); Estimated Creatinine Clearance 59 ml/min; Glucose 107 mg/dl (70-99); Potassium 4.6 mmol/L (3.5-5.1); Sodium 136 mmol/L (135-145); Total Bilirubin 0.6 mg/dl (0.2-1.3); Total Protein 7.9 g/dl (6.3-8.2); eGFR > 60.00
[2024-09-10 18:52] LABS: Troponin I < 0.012 ng/ml
--- NOTE | 2024-09-10 19:56 | ED.GENMED ---
History of Present Illness
General
Chief Complaint: Back Pain
Source: patient
Exam Limitations: none
Time Seen by Provider: 09/10/24 17:14
Nursing documentation reviewed up to this point in time: agreed with
History of Present Illness
History of Present Illness:
Patient is a 78-year-old female with a history of COPD on 4 to 5 L of oxygen at baseline ex-smoker, chronic back pain due to degenerative disc disease presents with a sudden onset of upper back pain that woke her from sleep 3 days ago which radiated
into both arms. Patient said that she has had pain with deep breathing and is felt pain in her back and up into her neck. She does not feel any more short of breath than normal and has not needed to crank up her oxygen any bit. She does have a
chronic cough but this is not worse. There is no fever, weakness in her legs, syncope, vomiting. Patient has been taking Tylenol without improvement. She feels like the pain comes and goes in waves
Past History
Past History
ED Past Medical History: Cancer, COPD and Other (Macular degeneration)
ED Past Surgical History: Other (L masectomy)
Social History
Tobacco: Former smoker
Alcohol: None
Drug: None
Personal:
Living: intermediate
Employment: Other
Family History
Family History: Other
Review of Systems
Review of Systems
Allergies reviewed?: Yes
All Other Systems: Not applicable
Phy Exam
Physical Exam
Physical Exam:
GENERAL: Alert , slightly dyspneic but can speak in mostly full sentences
EYE: pupils equal and reactive
NECK: Supple
ENT: o/p clr, mmm.
CARDIAC: REGULAR
PULM: DIMINISHED THROUGHOUT, TACHYPNEIC
ABDOMEN: Soft, without focal tenderness, no r/g, no cvat, normal bowel sounds
NEUROLOGICAL: Alert and oriented, no focal neuro deficits
NO UE OR LE WEAKNESS
NORMAL SENSATION
SKIN: Warm and dry, skin intact.
MUSCULOSKELETAL: No edema, well perfused. neg eleanor's sign
PSYCH: Normal and appropriate interaction.
Course
Orders/Labs/Results
Orders:
Orders
09/10/24 Dinner
Cholesterol Lowering
At Your Request: Full Participation
Cholesterol Lowering: Sodium, 2 Gram
09/10/24 15:59
ECG [Electrocardiogram (*1)] Urgent
Reason for Study: Other
Other Reason for Exam: upper back pain
09/10/24 16:00
EKG- Treatment ONCE
09/10/24 17:56
CT Chest/abd/pelvis Angio W/wo Urgent
Comment:
Reason For Exam: upper back pain down both arms
Diazepam [Valium] 5 mg PO NOW STA
Ipratropium/Albuterol Sulfate [Duoneb] 3 ml INH R NOW ONE
09/10/24 18:07
Complete Blood Count/With Diff Urgent
Comprehensive Metabolic Panel Urgent
PTT Urgent
Prothrombin Time Urgent
Troponin I Urgent
09/10/24 19:55
Heparin 5,900 units IV NOW STA
Pharmacy Request to Place See Dose Instructions PO NOW STA
Discontinue all Active Warfarin orders?: Yes
09/10/24 20:00
Heparin 71992 Units/250 ml 25,000 units in 250 ml IV PER PROTOCOL
Weight to be used for heparin protocol in kilograms (kg):: 73.5
Protocol:: DVT/PE
PTT Goal Range to be used:: PTT 73 to 111 seconds
Order type:: Initial
INITIAL Infusion Dose (UNITS/KG/hr) & then follow protocol:: 18 units/kg/hr
Infusion Dose in UNITS/hr & then follow protocol (UNITS/hr):: 1,300
INFUSION RATE in mL/hr & then follow protocol (mL/hr):: 13
For DVT/PE algorithm, re-bolus for low PTT?: Yes
PTT less than or equal to 64 seconds:: Re-bolus 80 units/kg (max 10,000units). Increase by 300 units/hr
(+ 3mL/hr)
PTT 64.1 to 72.9 seconds:: Re-bolus 40 units/kg (max 5,000 units). Increase by 200 units/hr
(+ 2mL/hr)
PTT 73 to 111 seconds:: Target Range. No change in rate.
PTT 111.1 to 130.9 seconds:: Decrease rate by 200 units/hr (- 2 mL/hr)
PTT 131 to 199.9 seconds:: HOLD for 1 hr. Then decrease by 200 units/hr (- 2mL/hr)
PTT greater than or equal to 200 seconds:: HOLD for 2 hrs & Notify Provider. Then decrease by 300 units/hr
(- 3mL/hr)
Lab follow-up:: Each change, PTT q6h until 2 consecutive are therapeutic. Then
PTT daily.
Pharmacy Request to Place See Dose Instructions IV DIRECTED
09/10/24 20:09
Enoxaparin Sodium [Lovenox] 74 mg SC NOW STA
09/10/24 20:34
Admit/Transfer Patient As Directed
Co-Sign Provider:
Level of Care: Inpatient admission
Assign to:: Telemetry
Physician / Group: hospitalist
Diagnosis: bilateral PE
Reason for Telemetry: Other
Other Reason for Telemetry: pulmonary embolism
Date to Stop Telemetry: 09/12/24
Time to Stop Telemetry: 11:00
Reason for Hospitalization: pulmonary embolism
Expected length of stay greater than two midnights?: Yes
ELOS- Estimated Length of Stay in days: 2
I certify the patient meets the requirements for IP care: Yes
PRN Pain Medication Management As Directed
May give lesser potent ordered pain med per pt: Yes
preference::
Protocol:: Medication orders for pain may be administered in a
manner that supports deferring to patient preference
when the pt is:
- Requesting an ordered lesser potent pain medication.
Least to most potent pain medications are defined
as: acetaminophen < NSAID < tramadol < opioids
(morphine, oxycodone, hydromorphone).
- Requesting a lesser dose of the same medication IF
ORDERED.
- Requesting a less intrusive route of administration
if both routes are prescribed by the provider (PO <
IV).
09/10/24 20:36
Code Status As Directed
Resuscitation Status: Do not resuscitate
Reached after discussion with pt or family/Healthcare POA: Yes
09/10/24 20:37
DNR Bracelet Application ONCE
09/10/24 21:43
Acetaminophen [Tylenol] 650 mg PO Q4HPRN PRN
Benzonatate [Tessalon Perles] 100 mg PO Q8HPRN PRN
Bisacodyl [Dulcolax] 10 mg RECTAL [id number] PRN
Ipratropium/Albuterol Sulfate [Duoneb] 3 ml INH R Q4HPRN PRN
Magnesium Hydroxide [Milk of Magnesia] 30 ml PO HSPRN PRN
09/10/24 21:43
PULMONARY CONSULT Routine
Consulting Provider: Jens Ovalle
Was physician already notified: Yes
Reason for consult: bilateral PE
Activity As Directed
Activity Level: With Assistance
Bladder Scan As Directed
Follow Bladder Retention/Intermittent Cath Algorithm?: Yes
Frequency: Per Retention Algorithm
Comment: as per intermittent urinary catheter algorithm
Bladder Scan As Directed
Follow Bladder Retention/Intermittent Cath Algorithm?: Yes
PRN if no void in __ hours: 6
Frequency: Per Retention Algorithm
If Bladder Scan Result >: 400
then:: Straight cath
Intake/ Output As Directed
Frequency: Per unit guidelines
Straight Cath As Directed
Frequency: Per Retention Algorithm
Additional Instructions: as per intermittent urinary catheter algorithm
Straight Cath As Directed
Frequency: Per Retention Algorithm
Additional Instructions: straight cath as needed per acute urinary retention algorithm for 24 hrs
Additional Instructions: for bladder scan greater than 400 mL
Vital Signs As Directed
Frequency: Per unit guidelines
O2 Therapy [RESP] Routine
Nasal Cannula Liter Flow: 6 LPM
Titrate/Wean O2 to maintain O2 sat greater than (%): 90
Pulse Ox/cont/shift [RESP] Routine
Quantity: 1
Special Instructions: check O2 Sat Q8 hours and at each change in oxygen liter flow and FiO2
DX Deep Vein Thrombosis Video Routine
09/10/24 22:00
Melatonin 5 mg PO HS
Rosuvastatin Calcium [Crestor] 20 mg PO HS
09/11/24 06:00
Complete Blood Count/No Diff IN AM
09/11/24 08:00
Aspirin Chewable [Low Strength Aspirin] 81 mg PO DAILY
Azithromycin [Zithromax] 250 mg PO MoWeFr@0800
Budesonide [Pulmicort] 0.25 mg INH R BID
Celecoxib [Celebrex] 200 mg PO DAILY
Cetirizine HCl [Zyrtec] 10 mg PO DAILY
Enoxaparin Sodium [Lovenox] 70 mg SC Q12H
Guaifenesin [Mucinex] 600 mg PO BID
Ipratropium/Albuterol Sulfate [Duoneb] 3 ml INH R QID
Pantoprazole [Protonix] 40 mg PO DAILY
Sertraline HCl [Zoloft] 100 mg PO DAILY
09/12/24 11:00
DC Protocol for Telemetry ONCE
Abnormal Lab Results
09/10/24
18:07
RBC 3.93 L 10^6/uL
(4.20-5.40)
Hgb 11.3 L g/dL
(12.0-16.0)
Hct 36.2 L %
(37.0-47.0)
MCHC 31.2 L g/dL
(33.0-37.0)
Absolute Neuts (auto) 7.0 H 10^3/uL
(1.4-6.5)
Lymphocytes % 18.8 L %
(20.5-51.1)
Chloride 93 L mmol/L
(98-107)
Carbon Dioxide 38 H mmol/L
(22-30)
BUN 23 H mg/dl
(7-17)
Glucose 107 H mg/dl
(70-99)
09/10/24 18:07
09/10/24 18:07
Vital Signs
Initial and Last Documented VS:
Initial Vital Signs
Temp Pulse Resp BP Pulse Ox
36.7 C 87 20 130/59 94
09/10/24 15:55 09/10/24 15:55 09/10/24 15:55 09/10/24 15:55 09/10/24 15:55
Last Documented Vital Signs
Temp Pulse Resp BP Pulse Ox
36.4 C 92 18 162/74 98
09/10/24 21:40 09/10/24 21:40 09/10/24 21:40 09/10/24 21:40 09/10/24 21:40
MDM/Problems Addressed
Differential Diagnosis Includes:
PE, DISSECTION
ED Attending Note
-
Portions of this chart may have been created with voice recognition software.� Occasional wrong word or��sound alike� substitutions may have occurred due to the inherent limitations of voice recognition software.
Discharge Plan
Departure
Patient Disposition: Admit
Date of Disposition: 09/10/24
Time of Disposition: 19:55
Admit to: Telemetry
Presentation/result/management discussed w/ accepting MD/DO: Hospitalist
Patient with high blood pressure during this ER visit?: No
Condition: Fair
Covid-19: Not Applicable
Discharge Problem:
Bilateral pulmonary embolism
Interventions
Interventions:
*Risk Screen - Suicide Last Done: 09/10/24 15:55
*General Assessment Last Done: 09/10/24 17:25
*Neglect/Abuse Screening Last Done: 09/10/24 17:25
ED- Fall Risk Assessment Last Done: 09/10/24 19:17
*ED COVID-19 Vaccine History Last Done: 09/10/24 19:17
*Nursing Disposition Last Done: 09/10/24 21:30
ED-Musculoskeletal Assessment Last Done: 09/10/24 19:17
Discharge Date and Time
Discharge Date/Time: 09/10/24 21:51
--- NOTE | 2024-09-10 20:24 | HPS.HSE ---
Family Physician
-
Family Physician: * NONE
Chief Complaint
-
Back pain
History of Present Illness
Patient Is a 78-year-old with past medical history of COPD on 4 to 5 L home O2, history of CVA, left-sided central retinal artery occlusion, hyperlipidemia who presents to the emergency department with acute onset of back pain that started about 2
days ago.
Patient reported waking up suddenly with bilateral upper back pain that radiates to the arms bilaterally. She also reports pain in her shoulders and neck. She reports the pain is worse with deep inspiration or coughing. The pain is also worse
with movement and she has been less mobile over the last 2 days due to the pain. She denies any worsening shortness of breath. She denies any change in her cough. She denies any diaphoresis nausea vomiting or palpitations.
Patient reported having episode of COPD exacerbation in June. At that time she was not checked for COVID as she states. She has otherwise been in usual state of health since then. She denies any recent injuries, immobilizations,
hospitalizations or any recent airplane flights. Patient denies any prior history of DVTs or PEs.
In the emergency department she was afebrile blood pressure was 120/70 with a pulse of 91 respiratory rate was 20 and she was satting 95% on 4 L. ECG shows a normal sinus rhythm at rate of 87, troponin was negative. CBC was unremarkable.
Electrolytes BUN/creatinine were unremarkable with a known bicarb of 38 unchanged from prior. Reported to have a CT angio of his chest which shows bilateral pulmonary emboli, no saddle emboli, no RV strain. Received one dose of lovenox in ED.
Final report indicated no PE.
Medical History
Past Medical History
Past Medical History: Reports COPD (4 L home O2,), HTN, Hypercholesterolemia and Psychiatric (Anxiety depression)
Additional Past Medical History:
Spondylosis without myelopathy or radiculopathy
Past Surgical History: Reports Other (Left breast mastectomy)
Social History
Tobacco: Non-smoker
Alcohol: None
Drug: None
Personal: Single
Living: Assisted Living
Employment: Retired
Family History
Family History: Not pertinent
Allergies / Home Medications
Allergies reflects when Allergies were last updated in [facility].
Home Medications with original date entered in [facility]
Allergy/Medication List:
Allergies
Allergy/AdvReac Type Severity Reaction Status Date / Time
No Known Allergies Allergy Verified 09/10/24 15:55
Home Medications
acetaminophen 325 mg tablet 650 mg PO Q4HPRN PRN fever >100.4 01/13/24
albuterol sulfate 2.5 mg/3 mL (0.083 %) solution for nebulization 2.5 mg inhalation R BID Lung/Breathing Issues 01/13/24
albuterol sulfate 2.5 mg/3 mL (0.083 %) solution for nebulization 2.5 mg inhalation R Q4HPRN PRN wheezing 01/13/24
albuterol sulfate 90 mcg/actuation aerosol inhaler 2 puff inhalation R Q4HPRN PRN sob 01/13/24
azithromycin 250 mg tablet 250 mg PO MOWEFR Infection 01/13/24
benzocaine 6 mg-menthol 10 mg lozenges 1 juan mucous membrane Q2HPRN PRN sore throat 01/13/24
benzonatate 100 mg capsule 100 mg PO Q8HPRN PRN cough 01/13/24
bisacodyl 10 mg rectal suppository 10 mg HI [id number] PRN day 3 no bm, mom ineffective 01/13/24
budesonide 0.5 mg/2 mL suspension for nebulization 0.25 mg inhalation R BID Lung/Breathing Issues 01/13/24
budesonide 160 mcg-glycopyr 9 mcg-formot 4.8 mcg/actuation HFA inhaler 2 inh inhalation R BID Lung/Breathing Issues 01/13/24
calcium carbonate 600 mg PO DAILY Supplement 01/13/24
cetirizine 10 mg tablet 10 mg PO DAILY Allergies 01/13/24
cholecalciferol (vitamin D3) 1,250 mcg (50,000 unit) tablet 1,250 mcg PO QMONTH Supplement 01/13/24
cyanocobalamin (vitamin B-12) 500 mcg tablet 500 mcg PO MOWEFR Supplement 01/13/24
guaifenesin 600 mg tablet, extended release 12 hr 600 mg PO BID Cough 01/13/24
lidocaine 4 % topical patch 1 patch topical DAILY lower back pain 01/13/24
magnesium hydroxide 400 mg/5 mL oral suspension (Milk of Magnesia) 30 ml PO HSPRN PRN constipation 01/13/24
melatonin 5 mg tablet 5 mg PO HS Sleep 01/13/24
polyvinyl alcohol-povidone (PF) 1.4 %-0.6 % eye drops in a dropperette 1 drp BOTH EYES BID Eye Condition 01/13/24
rosuvastatin 20 mg tablet 20 mg PO HS High Cholesterol 01/13/24
sertraline 100 mg tablet 100 mg PO DAILY Depression 01/13/24
sodium chloride 0.65 % nasal spray aerosol (Saline Mist) 2 spray intranasal DAILYPRN PRN dry nose 01/13/24
trazodone 50 mg tablet 50 mg PO HS Sleep 01/13/24
vit C 250 mg-vit E 90 mg-zinc 40 mg-copper 1 oz-[id number]-[id number] capsule (PreserVision AREDS-2) 1 tab PO BID Supplement 01/13/24
aspirin 81 mg chewable tablet 81 mg PO DAILY #30 tabs 01/14/24
Review of Systems
-
History Source: Patient
Constitutional: Reports No Symptoms
EENT: Reports No Symptoms
Cardiac: Reports Chest Pain (Pleuritic)
Abdomen/GI: Reports No Symptoms
: Reports No Symptoms
Musculoskeletal: Reports No Symptoms
Skin: Reports No Symptoms
Neurological: Reports No Symptoms
Endocrine: Reports No Symptoms
Hematologic/Lymphatic: Reports No Symptoms
Psych: Reports No Symptoms
Physical Exam
Vital Signs
Vital Signs
Temp Pulse Resp BP Pulse Ox
98.8 F 91 20 120/75 95
09/10/24 19:17 09/10/24 19:17 09/10/24 19:17 09/10/24 19:17 09/10/24 19:17
Physical Exam
General: Well Developed, Well Nourished, No Apparent Distress and Comfortable
HEENT: NormoCephalic, Anicteric, Moist mucous membranes, Atraumatic and Oxygen
Respiratory: Clear, Non Labored Respirations and Decreased Breath Sounds
Cardiac: S1/S2 and Regular Rhythm
Breast: Deferred by me
GI: Soft, Non Tender, Non Distended and Normal Bowel Sounds
Rectal: Deferred by Provider
Genito-urinary: Deferred by me
Musculoskeletal: No Clubbing, No Cyanosis and No Edema
Skin: Warm
Neuro: AO x 3 and Nonfocal/grossly intact
Hematologic/Lymphatic: No Lymphadenopathy
Psych: Calm
Laboratory Results
-
09/10/24 18:07
09/10/24 18:07
Laboratory Results
PT 12.6 Sec (11.4-14.6) 09/10/24 18:07
INR 0.90 09/10/24 18:07
APTT 30.0 Sec (23.4-35.0) 09/10/24 18:07
Total Bilirubin 0.6 mg/dl (0.2-1.3) 09/10/24 18:07
AST 22 U/L (14-36) 09/10/24 18:07
ALT 14 U/L (0-35) 09/10/24 18:07
Alkaline Phosphatase 65 U/L (38-126) 09/10/24 18:07
Troponin I < 0.012 ng/ml 09/10/24 18:07
Data Reviewed
-
CT Scan: Report Reviewed by me
Medical Tests (Nuc Med, Echo, EKG etc): Image Personally Visualized and interpreted
Lab Data: Labs Reviewed by me
Old Records: Reviewed
Impression/Plan
-
IMPRESSION:
78-year-old with history of COPD on 4 to 5 L home O2 presents to the emergency department with pleuritic back and shoulder pain as well as bilateral arm pain initially thought to have bilateral moderate burden pulmonary embolism, no central emboli
or saddle emboli, no RV strain. ECG is unremarkable with a normal troponin. However final read shows negative chest angio gram. No PE, no dissection, no infiltrates.
PLAN:
1. Back pain - No Pulmonary Embolism - Patient initially admitted to telemetry
- d/c telemetry, admit to obs
- continue aspirin,pain control
- ppi pppx
- oxygen as needed to keep sat > 92%
- check glenda LE u/s, no indication for echo
2. COPD - 4 - 5 L home O2. Currently on 6 L. No increased wob, wheezing or sob
- continue home ICS/LABA/LAMA
- prn albuterol/ipratropium
- 6 L O2, keep sat > 92%
- CO2 retainer, declines CPAP/BIPAP
3. h/o HLD/CVA
- continue aspirin and statin
Code Status - DNR
[2024-09-10] MEDS: LOVENOX 74 MG SC (20:45)
[2024-09-10] MEDS: ULTRAM 25 MG PO (22:31)
[2024-09-10] MEDS: MELATONIN 5 MG PO (22:34)
[2024-09-10] MEDS: CRESTOR 20 MG PO (22:40)
[2024-09-11 03:15] VITALS: BP 109/75
--- NOTE | 2024-09-11 07:01 | W.PN.HOSP.TC ---
Addendum entered and electronically signed by Linus Mas MD 09/11/24 16:16:
Chronic respiratory failure with hypoxia and hypercapnia
Original Note:
Today's Communication/Plan
-
Discharge today
Assessment / Plan
Assessment / Plan
Physical Exam
General: Not in acute distress
HEENT: Normocephalic. On baseline oxygen supply.
Respiratory: Clear to Auscultation Bilaterally
Cardiac: S1/S2 and Regular Rhythm
GI: Soft, Non Tender, Non Distended and Normal Bowel Sounds
Musculoskeletal: Significant tenderness to palpation of bilateral shoulders, bilateral upper back muscles, and posterior neck. No Cyanosis and No Edema.
Skin: Warm. Dry.
Neuro: AAO x 3 and Nonfocal/grossly intact
Psych: Calm
Assessment/Plan
78-year-old with history of COPD on 4 to 5 L home O2 presents to the emergency department with pleuritic back and shoulder pain as well as bilateral arm pain initially thought to have bilateral moderate burden pulmonary embolism, no central emboli
or saddle emboli, no RV strain. ECG unremarkable with a normal troponin. No PE, no aortic dissection, no infiltrates.
Musculoskeletal Bilateral Upper Back, Bilateral Shoulder and Posterior Neck tenderness and pain
- No pulmonary embolism, no aneurysm or dissection of the thoracic or abdominal aorta
- continue aspirin,pain control
- Lazaro LE u/s with no DVT
- On discharge: Robaxin, Medrol Dose Dwanye and mild heating pads
- Follow-up with core setter Dr. Lamb on discharge
COPD - 4 - 5 L home O2. Currently on 4 L. No increased wob, wheezing or sob
- continue home ICS/LABA/LAMA
- prn albuterol/ipratropium
- CO2 retainer, declines CPAP/BIPAP
History of HLD/CVA
- continue aspirin and statin
Moderate to advanced sigmoid diverticulosis
Minor diverticulosis of the descending colon
Mild colonic fecal burden
Code Status - DNR
More than 30 minutes spent in discharge including
Final examination of the patient
Summarizing hospital stay
Instructions for continuing care to all relevant caregivers
Preparation of discharge records, prescriptions, and referral forms
Total time spent (in minutes): 36
Anticipated Discharge: Today
Subjective/Interval History
-
Date of Service: September 11, 2024
Patient was seen and examined. She reported muscle tenderness in her upper back, neck and shoulders. She said she would like to go home today with steroids.
Objective Data
-
Labs:
Laboratory Results
09/11/24
06:52
WBC Pending
Hgb Pending
Hct Pending
Plt Count Pending
Vital Signs:
Vital Signs
Temp Pulse Resp BP Pulse Ox
97.7 F 72 18 109/75 100
09/11/24 03:15 09/11/24 03:15 09/11/24 03:15 09/11/24 03:15 09/11/24 03:15
I&O
09/10/24 09/11/24 09/12/24
06:59 06:59 06:59
Intake Total 240 / 240
Balance 240 / 240
[2024-09-11 07:17] VITALS: BP 108/75
[2024-09-11 07:19] LABS: Hematocrit 32.8 % (37.0-47.0); Hemoglobin 9.9 g/dL (12.0-16.0); Mean Corp Hgb Conc. 30.2 g/dL (33.0-37.0); Mean Corpuscular Hgb 28.1 pg (27.0-31.0); Mean Corpuscular Volume 93.2 fL (81.0-99.0); Mean Platelet Volume 10.3 fL (7.4-10.4); Platelet Count 168 10^3/uL (130-400); Red Blood Cell Count 3.52 10^6/uL (4.20-5.40); Red Cell Dist. Width 12.9 % (11.5-14.5); White Blood Cell Count 6.5 10^3/uL (4.8-10.8)
[2024-09-11] MEDS: SYMBICORT 160/4.5 MCG INHALER 2 PUFF INH (07:50)
[2024-09-11] MEDS: VENTOLIN NEBULES 2.5 MG INH ×2 (07:50→10:56)
[2024-09-11] MEDS: SPIRIVA RESPIMAT 2.5 MCG 2 PUFF INH (07:50)
[2024-09-11] MEDS: PULMICORT 0.25 MG INH (07:51)
[2024-09-11] MEDS: MUCINEX 600 MG PO (07:55)
[2024-09-11] MEDS: LOW STRENGTH ASPIRIN 81 MG PO (07:55)
[2024-09-11] MEDS: CELEBREX 200 MG PO (07:55)
[2024-09-11] MEDS: ZYRTEC 10 MG PO (07:55)
[2024-09-11] MEDS: ZOLOFT 100 MG PO (07:56)
[2024-09-11] MEDS: ZITHROMAX 250 MG PO (07:57)
--- NOTE | 2024-09-11 09:20 | CON.PUL ---
Consultation
Consultation Request
Date/Time Consultation Requested: 09/11/24
Date/Time Consultation Performed: 09/11/24
Performing Provider: Guicho
Reason for Consultation: Back pain
Medical History
-
History of Present Illness:
Patient Is a 78-year-old with past medical history of COPD on 4 to 5 L home O2, history of CVA, left-sided central retinal artery occlusion, hyperlipidemia who presents to the emergency department with acute onset of back pain that started about 2
days ago. She feels a little more SOB than usual. She presents with baseline O2 requirements, no worsening. CT angio obtained which is negative for PE. She feels that she may have a flare of her COPD but mild, back pain slightly improved.
Past Medical History
Past Medical History: Other (see list below)
Social History
Tobacco: Former Smoker
Alcohol: None
Drug: None
Family History
Family History: Reviewed & Not Pertinent
Allergies / Home Medications
Allergies
Allergy/AdvReac Type Severity Reaction Status Date / Time
No Known Allergies Allergy Verified 09/10/24 15:55
Home Medications
�Medication �Instructions �Recorded �Confirmed �Last Taken �Type
acetaminophen 325 mg tablet 650 mg PO Q4HPRN PRN mild 01/13/24 09/10/24 Unknown History
pain/fever >100.4
albuterol sulfate 2.5 mg/3 mL 2.5 mg inhalation R BID 01/13/24 09/10/24 Unknown History
(0.083 %) solution for nebulization Lung/Breathing Issues
albuterol sulfate 90 mcg/actuation 2 puff inhalation R Q4HPRN PRN sob 01/13/24 09/10/24 Unknown History
aerosol inhaler
azithromycin 250 mg tablet 250 mg PO MOWEFR Infection 01/13/24 09/10/24 Unknown History
benzocaine 6 mg-menthol 10 mg 1 juan mucous membrane Q2HPRN PRN 01/13/24 09/10/24 Unknown History
lozenges sore throat
benzonatate 100 mg capsule 100 mg PO Q8HPRN PRN cough 01/13/24 09/10/24 Unknown History
bisacodyl 10 mg rectal suppository 10 mg UT [id number] PRN day 3 no bm, 01/13/24 09/10/24 Unknown History
mom ineffective
budesonide 0.5 mg/2 mL suspension 0.25 mg inhalation R BID 01/13/24 09/10/24 Unknown History
for nebulization Lung/Breathing Issues
budesonide 160 mcg-glycopyr 9 2 inh inhalation R BID 01/13/24 09/10/24 Unknown History
mcg-formot 4.8 mcg/actuation HFA Lung/Breathing Issues
inhaler
calcium carbonate 600 mg PO DAILY Supplement 01/13/24 09/10/24 Unknown History
cetirizine 10 mg tablet 10 mg PO DAILY Allergies 01/13/24 09/10/24 Unknown History
cholecalciferol (vitamin D3) 1,250 1,250 mcg PO QMONTH Supplement 01/13/24 09/10/24 Unknown History
mcg (50,000 unit) tablet
cyanocobalamin (vitamin B-12) 500 500 mcg PO MOWEFR Supplement 01/13/24 09/10/24 Unknown History
mcg tablet
guaifenesin 600 mg tablet, 600 mg PO BID Cough 01/13/24 09/10/24 Unknown History
extended release 12 hr
lidocaine 4 % topical patch 1 patch topical DAILYPRN PRN lower 01/13/24 09/10/24 Unknown History
back
magnesium hydroxide 400 mg/5 mL 30 ml PO HSPRN PRN constipation 01/13/24 09/10/24 Unknown History
oral suspension (Milk of Magnesia)
melatonin 5 mg tablet 5 mg PO HS Sleep 01/13/24 09/10/24 Unknown History
polyvinyl alcohol-povidone (PF) 1 drp BOTH EYES BID Eye Condition 01/13/24 09/10/24 Unknown History
1.4 %-0.6 % eye drops in a
dropperette
rosuvastatin 20 mg tablet 20 mg PO HS High Cholesterol 01/13/24 09/10/24 Unknown History
sertraline 100 mg tablet 100 mg PO DAILY Depression 01/13/24 09/10/24 Unknown History
sodium chloride 0.65 % nasal spray 2 spray intranasal DAILYPRN PRN 01/13/24 09/10/24 Unknown History
aerosol (Saline Mist) dry nose
trazodone 50 mg tablet 50 mg PO HS Sleep 01/13/24 09/10/24 Unknown History
vit C 250 mg-vit E 90 mg-zinc 40 1 cap PO BID Supplement 01/13/24 09/10/24 Unknown History
mg-copper 1 [id number]
capsule (PreserVision AREDS-2)
aspirin 81 mg chewable tablet 81 mg PO DAILY #30 tabs 01/14/24 09/10/24 Unknown Rx
celecoxib 200 mg capsule 200 mg PO DAILY 09/10/24 09/10/24 Unknown History
dextromethorphan-guaifenesin 10 10 ml PO Q4HPRN PRN cough 09/10/24 09/10/24 Unknown History
mg-100 mg/5 mL oral liquid
(Diabetic Tussin DM)
tramadol 25 mg tablet 25 mg PO DAILYPRN PRN moderate pain 09/10/24 09/10/24 09/10/24 12:00 History
Review of Systems
-
History Source: Patient
All other systems: Negative unless noted
Vitals / Labs / Diagnostic Testing
Vital Signs
Temp Pulse Resp BP Pulse Ox
97.9 F 72 16 108/75 97
09/11/24 07:17 09/11/24 07:37 09/11/24 07:37 09/11/24 07:17 09/11/24 07:37
Lab Data
09/11/24 06:52
09/10/24 18:07
Laboratory Results
09/10/24
18:07
PT 12.6
INR 0.90
APTT 30.0
Diagnostic Testing:
Physical Exam
-
HEENT: Normocephalic, Anicteric and Moist Mucous Membranes
Cardiovascular: S1/S2 and Regular Rhythm
Respiratory: Clear (diminished BS BL) and Non-Labored Respirations
GI: Soft, Non Distended and Non Tender
Neurology: Awake, Alert, Oriented and No Motor Deficits
Skin: Warm, Dry and Good Color
General: Comfortable and Other (NAD)
Assessment
-
Patient Is a 78-year-old with past medical history of COPD on 4 to 5 L home O2, history of CVA, left-sided central retinal artery occlusion, hyperlipidemia who presents to the emergency department with acute onset of back pain that started about 2
days ago. She feels a little more SOB than usual. She presents with baseline O2 requirements, no worsening. CT angio obtained which is negative for PE. She feels that she may have a flare of her COPD but mild, back pain slightly improved. We are
consulted for evaluation.
Acute onset back pain
Mild COPD flare
Acute on chronic SOB
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
Former smoker
Lung nodule
Spondylosis without myelopathy or radiculopathy, lumbar region
Anxiety Disorder/Major Depressive Disorder
Hyperlipidemia
Obstructive Sleep Apnea
Nonexudative age-related macular degeneration, left eye, early dry stage
Essential hypertension
Mild cognitive impairment of uncertain/unknown etiology
Amblyopia, right eye
History of malignant neoplasm of breast (2007)
Insomnia
Chronic lower back pain
Left breast mastectomy (2007)
Overnight DH - clogged carotid artery 01/19
Plan
Currently saturating >90% on baseline O2 use of 4L
Prior history of lung disease is noted including COPD/emphysema
Follows with Dr Poole as OP, records reviewed
CXR/CT obtained indicating negative testing results for PE
She received 1 dose of lovenox due to prelim read, but final showing no PE
Other imaging reviewed--recent LDCT
Can give prednisone taper starting at 30mg for now
Prior ECHO results are reviewed indicating stable findings
No acute process noted
Risk factors assessed for underlying sleep disordered breathing also noted, recommend outpatient PSG/sleep evaluation
Met alkalosis noted, can check VBG
Will need outpatient pulmonary evaluation in our office for PFTs and 6MWT
Reviewed with patient
If no other findings noted, can assess for d/c planning per team
OP FU to be arranged by our office
Diagnostic Data
Chest X-Ray:
CT Scan: CTA 09/10/24- No aneurysm or dissection of the thoracic or abdominal aorta. No pulmonary embolism. Moderate to advanced emphysematous lung changes. No evidence of pneumonia. No pneumothorax or effusion.
Moderate to advanced sigmoid diverticulosis. Minor diverticulosis of the descending colon. No evidence of acute diverticulitis. Mild colonic fecal burden.
LDCT- CT scan of the chest-low dose screening-01/20/24: Images reviewed. Stable tiny 1 mm subpleural nodule in the posterior lateral left upper lobe (image 21, series 201). No other pulmonary nodule.Mild to moderate emphysematous lung
changes.Lungs RADS category 2.
Echo: 01/14/24- Normal left ventricular size, wall thickness and systolic function. No regional wall motion abnormalities are seen. LV ejection fraction is 60-65% by visual assessment. Diastolic function indeterminate. Thickened mitral valve
leaflets. Mitral annular calcification. Mild mitral stenosis. Peak/mean gradients across the mitral valve are 17/7 mmHg. Mitral valve area 2.4 cm2. Mild mitral regurgitation. Mildly dilated left atrium. Trileaflet aortic valve. Aortic valve
opens normally. Thickened aortic valve with normal leaflet excursion. Aortic sclerosis without stenosis. Trace aortic regurgitation is seen. There is no cardiac embolic source seen. However if clinical suspicion is high would suggest PRABHAKAR.
PFT's: Last [facility] office visit (02/04/24): The forced vital capacity was 1040 mL or 39% of predicted and previously was 1390 mL or 52% of predicted and previously was 900 mL or 32% of predicted. The FEV1 was 420 mL or 21% of predicted and previously
was 570 mL or 28% of predicted and 390 mL and 550 mL as of 01/25/22. .Lung volumes revealed: Not performed as her saturation was not maintained over 87% off oxygen..Gas exchange: Not performed for above reasons
6 minute walk test-01/22/23: Her resting room air oxygen saturation was 85%. She required 4 L of nasal cannula oxygen to walk 400 feet and 6 L beyond 450 feet. Her maximum heart rate was 107 bpm. Her perceived dyspnea was moderate to severe at 5
on a 10 point scale.She was advised to use 4 L of oxygen for ambulating up to 400 feet in 6 L if she wishes
Reports and relevant images were personally reviewed.
Total time spent on this consultation __75__ minutes which includes review of history, physical exam, medications, laboratory data, personal review of imaging, extensive review of outpatient records, discussion with care team and respiratory therapy.
[2024-09-11 11:21] VITALS: BP 125/64
[2024-09-11 12:33] VITALS: PULSE 81; O2SAT 90; O2SAT 93
--- NOTE | 2024-09-11 12:43 | PTOTSP ---
pt currently requires supervision to complete simple ADLs, functional transfers, ambulation. pt demonstrates no overt deficits regarding back pain to complete simple tasks. no acute OT needs identified at this time, will sign off.
[2024-09-11] MEDS: DELTASONE 30 MG PO (13:41)
[2024-09-11 15:23] VITALS: BP 93/68
--- NOTE | 2024-09-11 15:32 | PN.CDI ---
CDI
- -
CDI:
Physician Documentation Request
Admit Date: 09/10/24 21:02
Dear Doctor Tg,
Please review the following and provide your response in the progress notes.
Clinical Indicators:
H+P, 09/10
#...COPD - 4 - 5 L home O2. Currently on 6 L.
#...No increased wob, wheezing or sob
#- 6 L O2, keep sat > 92%
#- CO2 retainer, declines CPAP/BIPAP
PN, 09/11
#COPD - 4 - 5 L home O2. Currently on 4 L.
#...No increased wob, wheezing or sob
#- continue home ICS/LABA/LAMA
#- CO2 retainer, declines CPAP/BIPAP
Please clarify the the significance of home O2:
Chronic respiratory failure with hypercapnia
Acute on Chronic respiratory failure with hypercapnia
Chronic respiratory failure with hypoxia
Acute on Chronic respiratory failure with hypoxia
Other (please specify)
Type Acuity
Respiratory failure with hypoxia Acute
Respiratory failure with hypercapnia Chronic
Respiratory failure with hypoxia and hypercapnia Acute on Chronic
Use of terms such as suspected, likely, concern for, or probable (associated with a specific diagnosis that is being evaluated, monitored, or treated as if it exists) are acceptable and can be coded in the inpatient setting, when documented at the
time of discharge.
Thank you,
Rachel Katz RN BSN CCDS
CDI Specialist
Please contact via tiger text
Please use your independent medical judgment in providing your response.
[2024-09-11 15:46] LABS: Venous Blood Gas B.E. 8.8 mmol/L (-4 to +4); Venous Blood Gas HCO3 36.4 mmol/L (22-27); Venous Blood Gas O2 Sat % 75.3 %; Venous Blood Gas pCO2 66 mmHg (35-48); Venous Blood Gas pH 7.35 (7.32-7.43); Venous Blood Gas pO2 42 mmHg (30-50)
--- NOTE | 2024-09-11 17:29 | CM ---
Met with patient to obtain assessment for assessment. Patient stated that she lives at [facility]. She is mostly independent however she does receive some assistance with dressing and bathing. She uses a walker to assist with her ambulation. Patient
medically cleared for discharge. Family was at bedside. They were all in agreement that patient wants to return to [facility]. Placed a call to unit A2 and patient's RN took report from Sandra at facility. She denied need for fax.
Plan: Case management will continue to follow and assist with discharge planning. Back to [facility].
== END 2024-09-11 17:37 ==
LOC: 3 WEST ACU 21:02
PROVIDERS: Physician Assistant; ADMITTING PHYSICIAN Internal Medicine; ATTENDING PHYSICIAN Hospitalist; EMERGENCY PHYSICIAN Emergency Medicine; OTHER PHYSICIAN Internal Medicine
DX: M54.2 Cervicalgia (principal); M54.9 Dorsalgia, unspecified; Z87.891 Personal history of nicotine dependence; M54.6 Pain in thoracic spine; Z66 Do not resuscitate; J44.1 Chronic obstructive pulmonary disease with (acute) exacerbation; Z99.81 Dependence on supplemental oxygen; J43.9 Emphysema, unspecified; J96.12 Chronic respiratory failure with hypercapnia; J96.11 Chronic respiratory failure with hypoxia; E87.3 Alkalosis; F41.9 Anxiety disorder, unspecified; G47.00 Insomnia, unspecified; G47.33 Obstructive sleep apnea (adult) (pediatric); G89.29 Other chronic pain; H53.001 Unspecified amblyopia, right eye; I10 Essential (primary) hypertension; K57.30 Diverticulosis of large intestine without perforation or abscess without bleeding; M47.816 Spondylosis without myelopathy or radiculopathy, lumbar region; Z86.73 Personal history of transient ischemic attack (TIA), and cerebral infarction without residual deficits; M25.511 Pain in right shoulder; M25.512 Pain in left shoulder
CPT/HCPCS: 71275; 74174; 80053; 82805; 84484; 85025; 85027; 85610; 85730; 87070; 93005; 93970; 94640; 97162; 97166; 99285; G0378; Q9967

== ENCOUNTER 2024-12-10 14:34 | Emergency (ER) | payer MEDICARE, OTHER, SELFPAY ==
[2024-12-10 14:38] VITALS: BMI 28.1
[2024-12-10 14:47] VITALS: BP 146/65
[2024-12-10 15:00] VITALS: BP 116/93
[2024-12-10 15:04] LABS: % Eosinophils 4.3 % (0-6); % Immature Granulocytes 0.2 % (0-0.5); % Lymphocytes 17.5 % (20.5-51.1); % Monocytes 6.2 % (1.7-9.3); % Neutrophils 70.8 % (42.2-75.2); Absolute Basophils 0.1 10^3/uL (0-0.2); Absolute Eosinophils 0.3 10^3/uL (0-0.7); Absolute Lymphocytes 1.1 10^3/uL (1.2-3.4); Absolute Monocytes 0.4 10^3/uL (0.1-0.6); Absolute Neutrophils 4.3 10^3/uL (1.4-6.5); Hematocrit 35.3 % (37.0-47.0); Hemoglobin 10.7 g/dL (12.0-16.0); Mean Corp Hgb Conc. 30.3 g/dL (33.0-37.0); Mean Corpuscular Hgb 28.1 pg (27.0-31.0); Mean Corpuscular Volume 92.7 fL (81.0-99.0); Mean Platelet Volume 9.8 fL (7.4-10.4); Nucleated Red Blood Cells % 0 %; Platelet Count 229 10^3/uL (130-400); Red Blood Cell Count 3.81 10^6/uL (4.20-5.40); White Blood Cell Count 6.1 10^3/uL (4.8-10.8)
[2024-12-10 15:15] LABS: ALT (SGPT) 13 U/L (0-35); AST (SGOT) 19 U/L (14-36); Alkaline Phosphatase 48 U/L (38-126); Blood Urea Nitrogen 18 mg/dl (7-17); Calcium 9.4 mg/dl (8.4-10.2); Carbon Dioxide 40 mmol/L (22-30); Chloride 101 mmol/L (98-107); Estimated Creatinine Clearance 75 ml/min; Glucose 129 mg/dl (70-99); Potassium 4.6 mmol/L (3.5-5.1); Sodium 141 mmol/L (135-145); Total Bilirubin 0.5 mg/dl (0.2-1.3); Total Protein 7.1 g/dl (6.3-8.2); eGFR > 60.00
[2024-12-10 15:28] LABS: COVID-19 Antigen Negative (Negative)
--- NOTE | 2024-12-10 15:29 | ED.GENMED ---
History of Present Illness
<JOSUE Murray - Last Filed: 12/10/24 19:17>
General
Chief Complaint: Breathing Problem
Source: patient
Time Seen by Provider: 12/10/24 15:09
History of Present Illness
History of Present Illness:
Pt is a 79 yo F with PMH of COPD, HLD, Breast CA, and seasonal allergies who presents to the ER c/o ongoing cough and shortness of breath x 6 weeks. Patient explains she's had this persistent cough which is sometimes productive for the better part
of six weeks. She was given a course of Prednisone by her doctor which she states helped, but now that the course has ended her cough and dyspnea have persisted. She is currently being given Mucinex which she doesn't feel is making any difference.
She does admit to significant seasonal allergies for which she takes Zyrtec daily, noting that her room in [facility] is dirty and she seems to have a harder time there than other places. She denies fevers, N/V/D, chest pain, abdominal pain,
CARROLL, congestion, or other associated symptoms.
Past History
<JOSUE Murray - Last Filed: 12/10/24 19:17>
Past History
ED Past Medical History: Cancer, COPD and Other (Macular degeneration)
ED Past Surgical History: Other (L masectomy)
Social History
Tobacco: Former smoker
Alcohol: None
Drug: None
Personal:
Living: pen[facility]entiary
Employment: Other
Family History
Family History: Other
Review of Systems
<JOSUE Murray - Last Filed: 12/10/24 19:17>
Review of Systems
All Other Systems: ROS reviewed and negative except as documented in HPI and ROS
<Lizzeth Avitia MD - Last Filed: 12/10/24 19:48>
Review of Systems
Constitutional: Reports no symptoms
EENT: Reports no symptoms
Respiratory: Reports cough and trouble breathing
Cardiac: Reports no symptoms
ABD/GI: Reports no symptoms
: Reports no symptoms
Musculoskeletal: Reports no symptoms
Skin: Reports no symptoms
Neurological: Reports no symptoms
Endocrine: Reports no symptoms
Hematologic/Lymphatic: Reports no symptoms
Psychiatric: Reports no symptoms
Phy Exam
<JOSUE Murray - Last Filed: 12/10/24 19:17>
General Physical Exam
General Presentation: well appearing and no apparent distress
General age: appears stated age
General Skin: warm and dry
General Habitus: normal
General Mental: alert
General Hydration: appears well hydrated
Cardiovascular Exam
Cardiovascular Exam: regular rate/rhythm
Heart Sounds: normal
Pulmonary Exam
Pulmonary Exam: lungs clear and decreased breath sounds
Oxygen Status: oxygen 4 liters via NC (5LNC)
Cough: coarse cough
<Lizzeth Avitia MD - Last Filed: 12/10/24 19:48>
Physical Exam
Physical Exam:
Physical Exam
General: no apparent distress, not acutely ill
Neck: supple. no meningeal signs. normal psoterior pharynx
Heart: s1/s2 regular rate and rhythm,
Lungs: Mild tachypnea but speaks in full sentences. Decreased breath sounds bilaterally. No wheezing
Abdomen: normal bowel sounds. not tender. no CVAT
Neuro: alert and oriented. no focal neurological deficits
Skin: no rash
Psychiatric: well kept. interactive and cooperative
Extremities: no edema. no calf tenderness. negative homans. good distal pulses
Scores
<JOSUE Murray - Last Filed: 12/10/24 19:17>
Heart Failure Risk
Heart Failure Risk Score: Yes
History of Stroke or TIA: No
History of intubation for respiratory distress: No
Heart rate on ED arrival >/= 110: No
SaO2 <90% on arrival on room air: Yes
HR >/=110 during 3min walk test (or too ill to perform test): No
ECG has acute ischemic changes: No
Urea >/=12mmol/L (BUN 33.6mg/dL): No
Serum CO2>/=35mmol/L: No
Troponin I or T elevated to MS Level (0.4mg/dL): No
NT-proBNP >/=5,000ng/L (5,000pg/ml): No
HF Risk Score: 1
Admission Status: MEDIUM RISK 5.1% Consider observation or discharge to home with homecare & f/u visit to PCP/Tyre Retreader, or SNF for treatment
<Lizzeth Avitia MD - Last Filed: 12/10/24 19:48>
Heart Failure Risk
HF Risk Score: 1
Admission Status: MEDIUM RISK 5.1% Consider observation or discharge to home with homecare & f/u visit to PCP/Tyre Retreader, or SNF for treatment
Course
<JOSUE Murray - Last Filed: 12/10/24 19:17>
Orders/Labs/Results
Orders:
Orders
12/10/24 14:51
Electrocardiogram (*1) Urgent
Reason for Study: Shortness of Breath
EKG- Treatment ONCE
12/10/24 14:52
CMP [Comprehensive Metabolic Panel] Urgent
COVID-19 Antigen Urgent
Source: Nasal Swab
Complete Blood Count/With Diff Urgent
Influenza A+B Rapid Molecular Urgent
CORRIE Source: Nasal Swab
Specimen Description:
12/10/24 15:37
CR Chest - 2 Views Urgent
Comment:
Reason For Exam: cough, SOB
12/10/24 16:15
NT-proBNP Urgent
Troponin I Urgent
12/10/24 16:51
CT Chest PE Study Urgent
Comment:
Reason For Exam: SOB, cough
12/10/24 18:35
Doxycycline [Vibramycin] 100 mg PO NOW STA
Prednisone [Deltasone] 40 mg PO NOW STA
12/10/24 19:36
Cefuroxime Axetil [Ceftin] 500 mg PO NOW STA
Abnormal Lab Results
12/10/24
14:52
RBC 3.81 L 10^6/uL
(4.20-5.40)
Hgb 10.7 L g/dL
(12.0-16.0)
Hct 35.3 L %
(37.0-47.0)
MCHC 30.3 L g/dL
(33.0-37.0)
Absolute Lymphs (auto) 1.1 L 10^3/uL
(1.2-3.4)
Lymphocytes % 17.5 L %
(20.5-51.1)
Carbon Dioxide 40 H mmol/L
(22-30)
BUN 18 H mg/dl
(7-17)
Glucose 129 H mg/dl
(70-99)
12/10/24 14:52
12/10/24 14:52
Vital Signs
Initial and Last Documented VS:
Initial Vital Signs
Pulse Ox
5
12/10/24 14:38
Last Documented Vital Signs
Temp Pulse Resp BP Pulse Ox
99.3 F 79 19 160/84 96
12/10/24 14:47 12/10/24 17:00 12/10/24 17:00 12/10/24 19:19 12/10/24 19:19
<Lizzeth Avitia MD - Last Filed: 12/10/24 19:48>
Orders/Labs/Results
Orders:
Orders
12/10/24 14:51
Electrocardiogram (*1) Urgent
Reason for Study: Shortness of Breath
EKG- Treatment ONCE
12/10/24 14:52
CMP [Comprehensive Metabolic Panel] Urgent
COVID-19 Antigen Urgent
Source: Nasal Swab
Complete Blood Count/With Diff Urgent
Influenza A+B Rapid Molecular Urgent
CORRIE Source: Nasal Swab
Specimen Description:
12/10/24 15:37
CR Chest - 2 Views Urgent
Comment:
Reason For Exam: cough, SOB
12/10/24 16:15
NT-proBNP Urgent
Troponin I Urgent
12/10/24 16:51
CT Chest PE Study Urgent
Comment:
Reason For Exam: SOB, cough
12/10/24 18:35
Doxycycline [Vibramycin] 100 mg PO NOW STA
Prednisone [Deltasone] 40 mg PO NOW STA
12/10/24 19:36
Cefuroxime Axetil [Ceftin] 500 mg PO NOW STA
Abnormal Lab Results
12/10/24
14:52
RBC 3.81 L 10^6/uL
(4.20-5.40)
Hgb 10.7 L g/dL
(12.0-16.0)
Hct 35.3 L %
(37.0-47.0)
MCHC 30.3 L g/dL
(33.0-37.0)
Absolute Lymphs (auto) 1.1 L 10^3/uL
(1.2-3.4)
Lymphocytes % 17.5 L %
(20.5-51.1)
Carbon Dioxide 40 H mmol/L
(22-30)
BUN 18 H mg/dl
(7-17)
Glucose 129 H mg/dl
(70-99)
12/10/24 14:52
12/10/24 14:52
Vital Signs
Initial and Last Documented VS:
Initial Vital Signs
Pulse Ox
5
12/10/24 14:38
Last Documented Vital Signs
Temp Pulse Resp BP Pulse Ox
99.3 F 79 19 160/84 96
12/10/24 14:47 12/10/24 17:00 12/10/24 17:00 12/10/24 19:19 12/10/24 19:19
<Lizzeth Avitia MD - Last Filed: 12/10/24 19:48>
MDM/Problems Addressed
Differential Diagnosis Includes:
Acute on chronic COPD, pneumonia, CHF
MDM/Problems Addressed:
Patient presents with subacute on chronic cough and shortness of breath
Chronic conditions affecting care:
COPD
Acute Exacerbation and/or Progression of Chronic Illness:
Patient may have acute exacerbation of chronic COPD
<JOSUE Murray - Last Filed: 12/10/24 19:17>
*Critical Care Note
Total Time (30-74mins, 75-104mins- exclusive of procedures): Not Applicable
<Lizzeth Avitia MD - Last Filed: 12/10/24 19:48>
*Radiology
Radiology exam reviewed: preliminary read by ED provider (Chest x-ray read by me. Left lower lobe atelectasis) and radiology read reviewed
*Pulse Oximetry
Patient hypoxic: no (Not hypoxic. Chronically on 5 L of oxygen)
*EKG
Interpreted by ED Provider?: Yes
Interpretation: abnormal
Comparison EKG: changes noted
Rate: normal
Rhythm: sinus and PVC's
[place]: normal axis
Interval: normal interval
QRS Pattern: normal QRS
Ischemia: no ischemia
*Rn Physician Office Interpretation
Rate: normal
Interpretation: normal
Rhythm: sinus
Data Reviewed
Review of Other/Old Records Reveals: Testing (Cardiac echo from 2023 shows EF of 65%)
Source: patient
<Lizzeth Avitia MD - Last Filed: 12/10/24 19:48>
Patient Management
Social determinants of health affecting care: Living situation and Strong social support
Discussion with other providers: Other (Case discussed with pulmonology, Dr. Apodaca who recommended patient be started on Ceftin and doxycycline)
Escalation/DeEscalation of care consider admission/obs:
Patient adamantly wants to go home. Her pulse ox is at 100% on 5 L of nasal cannula, which is her chronic home dose of oxygen. She is breathing comfortably and says she is at her baseline. There is no sign of sepsis, toxicity or hypotension.
ED Attending Note
<JOSUE Murray - Last Filed: 12/10/24 19:17>
-
Portions of this chart may have been created with voice recognition software.� Occasional wrong word or��sound alike� substitutions may have occurred due to the inherent limitations of voice recognition software.
Discharge Plan
Departure
Patient Disposition: Home (Routine Discharge)
Date of Disposition: 12/10/24
Time of Disposition: 18:38
Patient with high blood pressure during this ER visit?: No
Condition: Good
Covid-19: Negative COVID-19
Discharge Problem:
Pneumonia
Instructions: Pneumonia in adults - ED discharge instructions
Prescriptions:
New
prednisone 20 mg tablet
40 mg PO DAILY 4 Days Qty: 8 0RF
cefuroxime axetil 500 mg tablet
500 mg PO BID Qty: 13 0RF
doxycycline hyclate 100 mg capsule
100 mg PO BID Qty: 13 0RF
No Action
acetaminophen 325 mg Tablet
650 mg PO Q4HPRN PRN (Reason: mild pain/fever >100.4)
lidocaine 4 % Adhesive Patch,Medicated
1 patch TOPICAL DAILYPRN PRN (Reason: lower back)
albuterol sulfate 2.5 mg /3 mL (0.083 %) Solution For Nebulization
2.5 mg INHALATION R BID
trazodone 50 mg Tablet
50 mg PO HS
cetirizine 10 mg Tablet
10 mg PO DAILY
azithromycin 250 mg Tablet
250 mg PO MOWEFR
sertraline 100 mg Tablet
100 mg PO DAILY
calcium carbonate 600 mg calcium (1,500 mg) Tablet
600 mg PO DAILY
magnesium hydroxide [Milk of Magnesia] 400 mg/5 mL Suspension
30 ml PO HSPRN PRN (Reason: constipation)
cyanocobalamin (vitamin B-12) 500 mcg Tablet
500 mcg PO MOWEFR
benzonatate 100 mg Capsule
100 mg PO Q8HPRN PRN (Reason: cough)
bisacodyl 10 mg Suppository
10 mg CO [id number] PRN (Reason: day 3 no bm, mom ineffective)
budesonide 0.5 mg/2 mL Suspension For Nebulization
0.25 mg INHALATION R BID
albuterol sulfate 90 mcg/actuation Hfa Aerosol Inhaler
2 puff INHALATION R Q4HPRN PRN (Reason: sob)
polyvinyl alcohol-povidon(PF) 1.4-0.6 % Dropperette
1 drp BOTH EYES BID
Saline Mist 0.65 % Aerosol,[place]
2 spray INTRANASAL DAILYPRN PRN (Reason: dry nose)
rosuvastatin 20 mg Tablet
20 mg PO HS
benzocaine-menthol 6-10 mg Lozenge
1 juan MUCOUS MEMBRANE Q2HPRN PRN (Reason: sore throat)
melatonin 5 mg Tablet
5 mg PO HS
cholecalciferol (vitamin D3) 1,250 mcg (50,000 unit) Tablet
1,250 mcg PO QMONTH
PreserVision AREDS-2 250-90-40-1 mg Capsule
1 cap PO BID
guaifenesin 600 mg Tablet Extended Release 12hr
600 mg PO BID
gbykezxokb-jroknyfx-ltnkfwjxhy 160-9-4.8 mcg/actuation Hfa Aerosol Inhaler
2 inh INHALATION R BID
aspirin 81 mg Tablet,Chewable
81 mg PO DAILY Qty: 30 0RF
celecoxib 200 mg Capsule
200 mg PO DAILY
dextromethorphan-guaifenesin [Diabetic Tussin DM] 10-100 mg/5 mL Liquid
10 ml PO Q4HPRN PRN (Reason: cough)
tramadol 25 mg Tablet
25 mg PO DAILYPRN PRN (Reason: moderate pain)
prednisone 10 mg tablet
10 mg PO DIRECTED Qty: 12 0RF
Rx Instructions:
30 mg/day x2 days; 20 mg/day x2 days; 10 mg/day x2 days
Referrals:
Home Hayward MD [Family Provider] -
Activity Restrictions/Additional Instructions:
While you are on doxycycline and Ceftin, please stop taking azithromycin. As soon as you run out of the prescription for doxycycline and Ceftin, please resume your normally scheduled azithromycin.
Interventions
Interventions:
*Risk Screen - Suicide Last Done: 12/10/24 14:38
*General Assessment Last Done: 12/10/24 14:38
*Neglect/Abuse Screening Last Done: 12/10/24 14:38
*ED- Fall Risk Assessment Last Done: 12/10/24 14:38
*ED COVID-19 Vaccine History Last Done: 12/10/24 14:47
ED- Cardiac Assessment Last Done: 12/10/24 14:47
ED- Pulmonary Assessment Last Done: 12/10/24 14:49
Discharge Date and Time
Print Language: MALAY
[2024-12-10 16:49] LABS: NT-proBNP 178 pg/ml; Troponin I < 0.012 ng/ml
[2024-12-10] MEDS: VIBRAMYCIN 100 MG PO (19:17)
[2024-12-10] MEDS: DELTASONE 40 MG PO (19:18)
[2024-12-10 19:19] VITALS: BP 160/84
[2024-12-10] MEDS: CEFTIN 500 MG PO (19:40)
== END 2024-12-10 21:04 ==
LOC: EMR 14:34
PROVIDERS: EMERGENCY PHYSICIAN Emergency Medicine; FAMILY PHYSICIAN Internal Medicine Geriatric Medicine
DX: J18.9 Pneumonia, unspecified organism (principal); E78.5 Hyperlipidemia, unspecified; J44.0 Chronic obstructive pulmonary disease with (acute) lower respiratory infection; Z85.3 Personal history of malignant neoplasm of breast; Z87.891 Personal history of nicotine dependence; Z99.81 Dependence on supplemental oxygen; Z11.52 Encounter for screening for COVID-19
CPT/HCPCS: 99285; 71046; 71275; 80053; 83880; 84484; 85025; 87502; 87811; 93005; Q9967

== ENCOUNTER → 2024-12-14 10:01 | Outpatient (REF) | payer MEDICARE, OTHER, SELFPAY ==
[2024-12-14 11:20] LABS: Hematocrit 32.9 % (37.0-47.0); Hemoglobin 9.9 g/dL (12.0-16.0); Mean Corp Hgb Conc. 30.1 g/dL (33.0-37.0); Mean Corpuscular Hgb 28.3 pg (27.0-31.0); Mean Platelet Volume 10.7 fL (7.4-10.4); Platelet Count 244 10^3/uL (130-400); Red Cell Dist. Width 13.2 % (11.5-14.5); White Blood Cell Count 7.1 10^3/uL (4.8-10.8)
[2024-12-14 11:23] LABS: ALT (SGPT) 11 U/L (0-35); AST (SGOT) 15 U/L (14-36); Albumin 3.7 g/dl (3.5-5.0); Alkaline Phosphatase 41 U/L (38-126); Blood Urea Nitrogen 24 mg/dl (7-17); Chloride 103 mmol/L (98-107); Glucose 85 mg/dl (70-99); HDL Cholesterol 57 mg/dl; LDL Cholesterol, Calculated 75 mg/dl; Potassium 4.3 mmol/L (3.5-5.1); Sodium 143 mmol/L (135-145); Total Bilirubin 0.3 mg/dl (0.2-1.3); Total Cholesterol 146 mg/dl (50-199); Total Protein 6.6 g/dl (6.3-8.2); Triglyceride 74 mg/dl (10-149); Very Low Density Lipoprotein 14 mg/dl (0-30); eGFR > 60.00
[2024-12-14 11:33] LABS: Carbon Dioxide 36 mmol/L (22-30)
[2024-12-14 11:38] LABS: Vitamin D, 25-OH*** 38.6 ng/mL (30-80)
== END ==
LOC: OLABN 10:01
PROVIDERS: ATTENDING PHYSICIAN Internal Medicine Geriatric Medicine
DX: E78.5 Hyperlipidemia, unspecified (principal); J44.9 Chronic obstructive pulmonary disease, unspecified; E55.9 Vitamin D deficiency, unspecified
CPT/HCPCS: 36415; 80053; 80061; 82306; 85027

== ENCOUNTER → 2025-02-19 11:55 | Outpatient (REF) | payer MEDICARE, OTHER, SELFPAY ==
[2025-02-19 17:27] LABS: Urine Character Clear (Clear)
[2025-02-19 17:58] LABS: Urine Red Blood Cell 0-2 /HPF (0-2)
== END ==
LOC: OLABN 11:55
PROVIDERS: ATTENDING PHYSICIAN Internal Medicine Geriatric Medicine
DX: R35.1 Nocturia (principal); R30.0 Dysuria; R32 Unspecified urinary incontinence
CPT/HCPCS: 81003; 81015; 87086

== ENCOUNTER → 2025-02-26 10:25 | Outpatient (REF) | payer MEDICARE, OTHER, SELFPAY ==
[2025-02-26 11:11] LABS: Hematocrit 31.3 % (37.0-47.0); Hemoglobin 9.3 g/dL (12.0-16.0); Mean Corp Hgb Conc. 29.7 g/dL (33.0-37.0); Mean Corpuscular Volume 92.6 fL (81.0-99.0); Nucleated Red Blood Cells % 0 %; Platelet Count 236 10^3/uL (130-400); Red Cell Dist. Width 13.9 % (11.5-14.5)
== END ==
LOC: OLABN 10:25
PROVIDERS: ATTENDING PHYSICIAN Internal Medicine Geriatric Medicine
DX: I10 Essential (primary) hypertension (principal)
CPT/HCPCS: 36415; 85025

== ENCOUNTER 2025-03-16 21:08 | Inpatient (IN) | payer MEDICARE, OTHER, SELFPAY ==
[2025-03-16] VITALS (9 sets, daily range): BP systolic 102–195; BP diastolic 54–105; BMI 26.8; BMI 26.9
[2025-03-16 15:33] LABS: Hematocrit 31.4 % (37.0-47.0); Hemoglobin 9.6 g/dL (12.0-16.0); Mean Corp Hgb Conc. 30.6 g/dL (33.0-37.0); Mean Corpuscular Volume 91.0 fL (81.0-99.0); Nucleated Red Blood Cells % 0 %; Platelet Count 261 10^3/uL (130-400); Red Cell Dist. Width 14.0 % (11.5-14.5)
[2025-03-16 15:54] LABS: ALT (SGPT) 20 U/L (0-35); AST (SGOT) 22 U/L (14-36); Albumin 3.6 g/dl (3.5-5.0); Alkaline Phosphatase 64 U/L (38-126); Blood Urea Nitrogen 23 mg/dl (7-17); Calcium 9.2 mg/dl (8.4-10.2); Carbon Dioxide 34 mmol/L (22-30); Chloride 103 mmol/L (98-107); Glucose 122 mg/dl (70-99); Lipase 116 U/L (23-300); Potassium 4.6 mmol/L (3.5-5.1); Sodium 141 mmol/L (135-145); Total Protein 6.7 g/dl (6.3-8.2); eGFR > 60.00
[2025-03-16 15:58] LABS: Troponin I < 0.012 ng/ml
--- NOTE | 2025-03-16 17:12 | ED.GENMED ---
History of Present Illness
General
Chief Complaint: Abdominal Pain
Source: patient
Exam Limitations: none
Time Seen by Provider: 03/16/25 17:06
Nursing documentation reviewed up to this point in time: agreed with
History of Present Illness
History of Present Illness:
Note:
CHIEF COMPLAINT(S)
Pain in the chest region, exacerbating with palpation, and occasional right leg discomfort.
HISTORY OF PRESENT ILLNESS
The patient is a 79-year-old female who presented with a chief complaint of episodic chest pain and discomfort, initially noted since Saturday. The pain is described as intermittent, localized primarily to the left lower chest area, and tends to
radiate or 'wrap around' the back at times. On examination, palpation of the chest, especially in the upper left region, elicits significant discomfort, described by the patient as 'pretty painful' and 'worse' compared to other areas. She reports an
absence of cough or recent falls and generally uses five liters of supplemental oxygen. The patient expresses difficulty walking due to exacerbation of pain.
The patient denies recent bowel trouble and mentions attempts to maintain her diet. Physical exertion, such as walking, precipitates discomfort, particularly in the right leg. The healthcare provider plans to acquire a chest X-ray and a computed
tomography scan of the abdomen to further investigate the cause of pain, suspecting a potential rib strain. The patients laboratory results are mentioned to be unremarkable.
REVIEW OF SYSTEMS
- Chest: Intermittent pain worsening with palpation, occasional radiation to the back.
- Respiratory: Denies coughing; requires supplemental oxygen, typically at five liters.
- Gastrointestinal: Attempts regular diet; no recent bowel issues.
- Musculoskeletal: Discomfort in the right leg while walking.
PHYSICAL EXAM
General: Alert, afebrile
Skin: Warm, dry.
Head: Normocephalic, atraumatic.
Neck: Supple, trachea midline.
Eyes, Ears, Nose, Mouth, and Throat: Oral mucosa moist.
Cardiovascular: Normal peripheral perfusion, no edema.
Respiratory: wheezing, increased work of breathing.
Gastrointestinal: Soft, non-tender, non-distended abdomen. Left lower chest tenderness present.
Back: Normal range of motion, normal alignment.
Musculoskeletal: Normal range of motion, normal strength.
Neurological: Alert and oriented to person, place, time, and situation. No focal neurological deficit observed.
Psychiatric: Cooperative, appropriate mood and affect.
PLAN
- Obtain a chest X-ray and a computed tomography scan of the abdomen to evaluate chest pain and abdominal discomfort.
- Review chest and hip X-rays to assess for any underlying musculoskeletal issues, particularly rib strain.
- Monitor oxygen use and address any potential respiratory issues.
DIFFERENTIAL DIAGNOSIS
The Differential Diagnosis includes, in no particular order and is not limited to:
1. Rib strain or fracture
2. Costochondritis
3. Musculoskeletal pain
4. Cardiac-related chest pain
5. Pulmonary embolism
6. Pleurisy
7. Pneumonia
8. Gastroesophageal reflux disease (GERD)
9. Peptic ulcer disease
10. Pancreatitis
CARE-UPDATE
03/16/25 - 19:33
The patients imaging reveals left-sided pneumonitis, likely related to pneumonia and a COPD exacerbation, accompanied by hypoxia. Acute coronary syndrome (ACS) or pulmonary embolism (PE) are not suspected. Hip x-ray shows no acute findings on the
left side.
Disposition:
SUMMARY OF ENCOUNTER
The patient, a 79-year-old female, presented to the emergency department with intermittent left lower chest pain, which radiates to the back and worsens with palpation. She also reported discomfort in the right leg during walking. The patient uses
supplemental oxygen at home. The examination revealed tenderness in the left lower chest region. Initial imaging studies indicated left-sided pneumonitis, likely related to pneumonia and chronic obstructive pulmonary disease (COPD) exacerbation,
along with hypoxia. Her laboratory results were unremarkable. Given her condition, she was admitted for further management of her pneumonia and respiratory insufficiency.
DISPOSITION
Admit to hospitalists.
ASSESSMENT
Left-sided pneumonia and COPD exacerbation with associated respiratory insufficiency.
PLAN
- Initiate appropriate antibiotic treatment and bronchodilator therapy for pneumonia and COPD exacerbation.
- Monitor respiratory status closely and manage oxygen requirements.
- Continue with supplemental oxygen as needed to maintain adequate oxygenation.
- Supportive care for pain management.
INDEPENDENT REVIEW OF LABS AND INTERPRETATION OF TESTS
- My independent review of the chest X-ray reveals findings consistent with pneumonitis on the left side.
- HIP X-ray shows no acute findings on the left side.
MEDICAL DECISION MAKING
- Number and Complexity of Problems Addressed: Chronic conditions affecting care including COPD, suspected pneumonia, and respiratory insufficiency.
- Data:
- Category 1: Tests and documents reviewed include chest X-ray and hip X-ray interpretations.
- Category 3: Discussion with the hospitalist team regarding admission for continued management.
- Risk: Considering the patients age, underlying COPD, and new diagnosis of pneumonia, hospitalization was deemed necessary for close monitoring and treatment escalation if required.
DIAGNOSIS
1. Left-Sided Pneumonia - ICD-10: J18.1
2. COPD Exacerbation - ICD-10: J44.1
3. Respiratory Insufficiency - ICD-10: J96.90
Past History
Past History
ED Past Medical History: Cancer, COPD and Other (Macular degeneration)
ED Past Surgical History: Other (L masectomy)
Social History
Tobacco: Former smoker
Alcohol: None
Drug: None
Personal:
Living: jail
Employment: Other
Family History
Family History: Other
Phy Exam
Physical Exam
Physical Exam:
.
Course
Orders/Labs/Results
Orders:
Orders
03/16/25 15:12
ECG [Electrocardiogram (*1)] Urgent
Reason for Study: Abdominal Pain
03/16/25 15:13
EKG- Treatment ONCE
03/16/25 15:18
Complete Blood Count/With Diff Urgent
Comprehensive Metabolic Panel Urgent
Lipase Urgent
Troponin I Urgent
03/16/25 17:30
Hip, Left 2-3 Views [CR Hip - LT w/wo Pel 2-3 Vw*] Urgent
Comment:
Reason For Exam: left hip pain
Include a pelvis x-ray?: Yes
03/16/25 17:31
CR Chest - 2 Views Urgent
Comment:
Reason For Exam: left lower chest wall pain
03/16/25 19:29
*Vancomycin 2,000 mg Loading Dose (consider for >/= 70 kg) Vancomycin [Vancocin] 2,000 mg 0.9% Sodium Chloride 500 ml [Nss] 500 ml IV NOW
Cefepime HCl [Maxipime] 2,000 mg IV NOW STA
03/16/25 19:30
Lactic Acid Q4H
Comment: CANCEL 2nd LACTIC ACID IF 1st LACTIC ACID IS LESS THAN 2
Blood Culture Q30M
CORRIE Source: Blood/Venous
Specimen Description:
03/16/25 20:00
Blood Culture Q30M
CORRIE Source: Blood/Venous
Specimen Description:
03/16/25 23:30
Lactic Acid Q4H
Comment: CANCEL 2nd LACTIC ACID IF 1st LACTIC ACID IS LESS THAN 2
Abnormal Lab Results
03/16/25
15:18
RBC 3.45 L 10^6/uL
(4.20-5.40)
Hgb 9.6 L g/dL
(12.0-16.0)
Hct 31.4 L %
(37.0-47.0)
MCHC 30.6 L g/dL
(33.0-37.0)
Absolute Neuts (auto) 7.5 H 10^3/uL
(1.4-6.5)
Absolute Lymphs (auto) 1.0 L 10^3/uL
(1.2-3.4)
Neutrophils % 79.9 H %
(42.2-75.2)
Lymphocytes % 10.5 L %
(20.5-51.1)
Carbon Dioxide 34 H mmol/L
(22-30)
BUN 23 H mg/dl
(7-17)
Glucose 122 H mg/dl
(70-99)
03/16/25 15:18
03/16/25 15:18
Vital Signs
Initial and Last Documented VS:
Initial Vital Signs
Temp Pulse Resp BP Pulse Ox
98.5 F 98 24 102/56 95
03/16/25 15:06 03/16/25 15:06 03/16/25 15:06 03/16/25 15:06 03/16/25 15:06
Last Documented Vital Signs
Temp Pulse Resp BP Pulse Ox
98.5 F 89 20 151/97 98
03/16/25 15:06 03/16/25 18:45 03/16/25 18:45 03/16/25 18:05 03/16/25 18:45
*Pulse Oximetry
SaO2: 94
Nasal Cannula flow liters per minute: 6
Patient hypoxic: yes
*Critical Care Note
Total Time (30-74mins, 75-104mins- exclusive of procedures): Not Applicable
ED Attending Note
-
Portions of this chart may have been created with voice recognition software.� Occasional wrong word or��sound alike� substitutions may have occurred due to the inherent limitations of voice recognition software.
Discharge Plan
Departure
Patient Disposition: Admit
Date of Disposition: 03/16/25
Time of Disposition: 19:34
Admit to: Telemetry
Presentation/result/management discussed w/ accepting MD/DO: Hospitalist
Patient with high blood pressure during this ER visit?: Yes
Condition: Fair
Discharge Problem:
Pneumonia, COPD exacerbation, Acute respiratory insufficiency
Prescriptions:
No Action
acetaminophen 325 mg Tablet
650 mg PO Q4HPRN PRN (Reason: mild pain/fever >100.4)
lidocaine 4 % Adhesive Patch,Medicated
1 patch TOPICAL DAILYPRN PRN (Reason: lower back)
albuterol sulfate 2.5 mg /3 mL (0.083 %) Solution For Nebulization
2.5 mg INHALATION R BID
trazodone 50 mg Tablet
50 mg PO HS
cetirizine 10 mg Tablet
10 mg PO DAILY
azithromycin 250 mg Tablet
250 mg PO MOWEFR
sertraline 100 mg Tablet
100 mg PO DAILY
calcium carbonate 600 mg calcium (1,500 mg) Tablet
600 mg PO DAILY
magnesium hydroxide [Milk of Magnesia] 400 mg/5 mL Suspension
30 ml PO HSPRN PRN (Reason: constipation)
cyanocobalamin (vitamin B-12) 500 mcg Tablet
500 mcg PO MOWEFR
benzonatate 100 mg Capsule
100 mg PO Q8HPRN PRN (Reason: cough)
bisacodyl 10 mg Suppository
10 mg VA [id number] PRN (Reason: day 3 no bm, mom ineffective)
budesonide 0.5 mg/2 mL Suspension For Nebulization
0.25 mg INHALATION R BID
albuterol sulfate 90 mcg/actuation Hfa Aerosol Inhaler
2 puff INHALATION R Q4HPRN PRN (Reason: sob)
polyvinyl alcohol-povidone(PF) 1.4-0.6 % Dropperette
1 drp BOTH EYES BID
Saline Mist 0.65 % Aerosol,Benedicta
2 spray INTRANASAL DAILYPRN PRN (Reason: dry nose)
rosuvastatin 20 mg Tablet
20 mg PO HS
benzocaine-menthol 6-10 mg Lozenge
1 juan MUCOUS MEMBRANE Q2HPRN PRN (Reason: sore throat)
melatonin 5 mg Tablet
5 mg PO HS
cholecalciferol (vitamin D3) 1,250 mcg (50,000 unit) Tablet
1,250 mcg PO QMONTH
PreserVision AREDS-2 250-90-40-1 mg Capsule
1 cap PO BID
guaifenesin 600 mg Tablet Extended Release 12hr
600 mg PO BID
exfudrfupr-ubnbahhj-hjybintdnz 160-9-4.8 mcg/actuation Hfa Aerosol Inhaler
2 inh INHALATION R BID
aspirin 81 mg Tablet,Chewable
81 mg PO DAILY Qty: 30 0RF
celecoxib 200 mg Capsule
200 mg PO DAILY
dextromethorphan-guaifenesin [Diabetic Tussin DM] 10-100 mg/5 mL Liquid
10 ml PO Q4HPRN PRN (Reason: cough)
tramadol 25 mg Tablet
25 mg PO DAILYPRN PRN (Reason: moderate pain)
prednisone 10 mg tablet
10 mg PO DIRECTED Qty: 12 0RF
Rx Instructions:
30 mg/day x2 days; 20 mg/day x2 days; 10 mg/day x2 days
prednisone 20 mg tablet
40 mg PO DAILY 4 Days Qty: 8 0RF
cefuroxime axetil 500 mg tablet
500 mg PO BID Qty: 13 0RF
doxycycline hyclate 100 mg capsule
100 mg PO BID Qty: 13 0RF
Referrals:
Home Hayward MD [Family Provider, Internal Medicine]
Interventions
Interventions:
*Risk Screen - Suicide Last Done: 03/16/25 15:06
*General Assessment Last Done: 03/16/25 15:06
*Neglect/Abuse Screening Last Done: 03/16/25 16:36
*ED- Fall Risk Assessment Last Done: 03/16/25 16:35
*ED COVID-19 Vaccine History Last Done: 03/16/25 16:35
TC-Xfhkgv-Qmgewurgnp Assessment Last Done: 03/16/25 16:36
Discharge Date and Time
Print Language: POLISH
--- NOTE | 2025-03-16 19:52 | HPS.HSE ---
Family Physician
-
Family Physician: Home Hayward
Chief Complaint
-
fatigue
History of Present Illness
Patient is a 79-year-old female with past medical history significant for hypertension, hypercholesterolemia, COPD on 4L home O2 and anxiety/depression who presented to [facility] ED for evaluation of fatigue. Patient states she has not felt well since
Saturday and specifically has had severe left flank/side pain that wrapped around to LUQ in abdomen, increased fatigue and increased shortness of breath. She reports 4-5L home O2 has remained in place and is increased when at therapy but has been
baseline for sometime, she reports cough is baseline with no changes, she has had a poor PO appetite and mild fever. She denies chest pain, nausea, vomiting, constipation, diarrhea or urinary symptoms.
Medical History
Past Medical History
Past Medical History: Reports Other
Additional Past Medical History:
hypertension
hypercholesterolemia
COPD on 4L home O2
anxiety/depression
spondylosis without myelopathy or radiculopathy
Past Surgical History: Reports Other
Additional Past Surgical History:
left breast mastectomy
Social History
Tobacco: Non-smoker
Alcohol: None
Drug: None
Personal: Single
Living: Assisted Living
Employment: Retired
Family History
Family History: Not pertinent
Allergies / Home Medications
Allergies reflects when Allergies were last updated in [facility].
Home Medications with original date entered in [facility]
Allergy/Medication List:
Allergies
Allergy/AdvReac Type Severity Reaction Status Date / Time
No Known Allergies Allergy Verified 09/10/24 15:55
Home Medications
acetaminophen 325 mg tablet 650 mg PO Q4HPRN PRN mild pain/fever >100.4 01/13/24
albuterol sulfate 2.5 mg/3 mL (0.083 %) solution for nebulization 2.5 mg inhalation R BID Lung/Breathing Issues 01/13/24
albuterol sulfate 90 mcg/actuation aerosol inhaler 2 puff inhalation R Q4HPRN PRN sob 01/13/24
azithromycin 250 mg tablet 250 mg PO MOWEFR Infection 01/13/24
benzonatate 100 mg capsule 100 mg PO Q8HPRN PRN cough 01/13/24
bisacodyl 10 mg rectal suppository 10 mg NM [id number] PRN day 3 no bm, mom ineffective 01/13/24
calcium carbonate 600 mg PO DAILY Supplement 01/13/24
cetirizine 10 mg tablet 10 mg PO DAILY Allergies 01/13/24
cholecalciferol (vitamin D3) 1,250 mcg (50,000 unit) tablet 1,250 mcg PO QMONTH Supplement 01/13/24
guaifenesin 600 mg tablet, extended release 12 hr 1,200 mg PO BID Cough 01/13/24
lidocaine 4 % topical patch 1 patch topical DAILYPRN PRN lower back 01/13/24
magnesium hydroxide 400 mg/5 mL oral suspension (Milk of Magnesia) 30 ml PO HSPRN PRN constipation 01/13/24
melatonin 5 mg tablet 5 mg PO HS Sleep 01/13/24
polyvinyl alcohol-povidone (PF) 1.4 %-0.6 % eye drops in a dropperette 1 drp BOTH EYES BID Eye Condition 01/13/24
rosuvastatin 20 mg tablet 20 mg PO HS High Cholesterol 01/13/24
sertraline 100 mg tablet 125 mg PO DAILY Depression 01/13/24
sodium chloride 0.65 % nasal spray aerosol (Saline Mist) 2 spray intranasal DAILYPRN PRN dry nose 01/13/24
trazodone 50 mg tablet 50 mg PO HS Sleep 01/13/24
vit C 250 mg-vit E 90 mg-zinc 40 mg-copper 1 hz-xfhgtn-spfmdz capsule (PreserVision AREDS-2) 1 cap PO BID Supplement 01/13/24
aspirin 81 mg chewable tablet 81 mg PO DAILY #30 tabs 01/14/24
celecoxib 200 mg capsule 200 mg PO MOWEFR 09/10/24
tramadol 25 mg tablet 25 mg PO Q8HPRN PRN moderate pain 09/10/24
ensifentrine 3 mg/2.5 mL suspension for nebulization (Ohtuvayre) 2.5 ml inhalation BID 03/16/25
fluticasone 500 mcg-salmeterol 50 mcg/dose blistr powdr for inhalation 1 inh inhalation BID 03/16/25
umeclidinium 62.5 mcg/actuation blister powder for inhalation 1 inh inhalation DAILY 03/16/25
Review of Systems
-
History Source: Patient
Constitutional: Reports Fever and Chills
EENT: Reports No Symptoms
Respiratory: Reports Trouble Breathing (increased shortness of breath )
Cardiac: Reports No Symptoms
Abdomen/GI: Reports Anorexia (poor appetite ); Denies Nausea, Vomiting or Diarrhea
: Reports No Symptoms
Musculoskeletal: Reports Other (left flank/side pain )
Skin: Reports No Symptoms
Neurological: Reports Weakness
Endocrine: Reports No Symptoms
Hematologic/Lymphatic: Reports No Symptoms
Psych: Reports No Symptoms
Physical Exam
Vital Signs
Vital Signs
Temp Pulse Resp BP Pulse Ox
98.5 F 89 20 151/97 98
03/16/25 15:06 03/16/25 18:45 03/16/25 18:45 03/16/25 18:05 03/16/25 18:45
Physical Exam
General: Well Developed, Well Nourished, No Apparent Distress, Conversant and Obese
HEENT: NormoCephalic, Moist mucous membranes, Atraumatic and Oxygen
Respiratory: Clear, Rales (left lobe ) and Non Labored Respirations
Cardiac: S1/S2 and Regular Rhythm; No Murmur, Rub or Gallop
Breast: Deferred by me
GI: Soft, Non Tender, Non Distended and Normal Bowel Sounds; No Organomegaly
Rectal: Deferred by Provider
Genito-urinary: Deferred by me
Musculoskeletal: No Clubbing, No Cyanosis and No Edema
Skin: Warm and IV/Catheter Site
Neuro: Awake, AO x 3 and Nonfocal/grossly intact
Psych: Calm and Intact Judgment/Insight
Laboratory Results
-
03/16/25 15:18
03/16/25 15:18
Laboratory Results
Total Bilirubin 0.4 mg/dl (0.2-1.3) 03/16/25 15:18
AST 22 U/L (14-36) 03/16/25 15:18
ALT 20 U/L (0-35) 03/16/25 15:18
Alkaline Phosphatase 64 U/L (38-126) 03/16/25 15:18
Troponin I < 0.012 ng/ml 03/16/25 15:18
Lipase 116 U/L (23-300) 03/16/25 15:18
Data Reviewed
-
Diagnostic Radiology: Report Reviewed by me (CXR: Asymmetric increased pulmonary markings, left greater than right, at least in part could represent increased pulmonary vascularity, cannot exclude additional process such as pneumonitis, especially
on the left.; Lt Hip: No findings to confirm recent cortical fracture; lt hip: No findings to co )
Medical Tests (Nuc Med, Echo, EKG etc): Report Reviewed by me (EKG: NORMAL SINUS RHYTHM)
Lab Data: Labs Reviewed by me
Impression/Plan
-
IMPRESSION/PLAN:
#pneumonia
CXR: Asymmetric increased pulmonary markings, left greater than right, at least in part could represent increased pulmonary vascularity, cannot exclude additional process such as pneumonitis,
especially on the left.
Left Hip X-ray: No findings to confirm recent cortical fracture.
EKG: NORMAL SINUS RHYTHM
- Admit to med/surg
- Consult pulmonary
- Covid/Influenza/MRSA pending
- IV Cefepime and Azithromycin
- supportive care
#COPD on 4L home O2
- continue O2 wean to baseline as tolerated
- continue albuterol, azithromycin, benzonatate, cetirizine, ensifentrine, fluticasone, guaifenesin and umeclidinium
#hypercholesterolemia
- continue rosuvastatin
#anxiety/depression
- continue sertraline
Code status: DNR
DVT prophylaxis: Lovenox sq
[2025-03-16] MEDS: MAXIPIME 2000 MG IV (20:01)
[2025-03-16] MEDS: VANCOCIN 540 MG IV (20:07)
--- NOTE | 2025-03-16 20:36 | W.PN.UPDATE ---
Update Note
Progress Note Update
Patient seen in conjunction with RORY. I agree with the findings on history and physical. I concur with assessment and plan listed otherwise.
Briefly, this is a 79-year-old female with past medical history of severe COPD on 5 L of home O2 and on chronic azithromycin who presents to the emergency department after approximately 3 days of chest discomfort and some shortness of breath.
Patient reported sudden onset of left-sided right upper quadrant discomfort that is also radiating to her back as well as to her upper chest. She denies any significant cough. She states she is not wheezing. She has no increased oxygen
requirement. She states she has low-grade fevers up to around 100 Fahrenheit at the correction. She denies any dysuria, frequency or urgency incontinence or hematuria. She reports no improvement with nebs. She states in the past she has had
bronchitis before development of a pneumonia.
In the emergency department she was satting 97% on 5 L, blood pressure was 151/97 with a pulse rate of 89 and she is afebrile. ECG shows normal sinus rhythm at a rate of 93 and there are no acute ST or T wave changes. Troponin was negative. CBC
was within a normal range. Electrolytes BUN and creatinine were in the normal range. LFTs were unremarkable. UA is pending. Chest x-ray diffuse increased interstitial markings and asymmetric weight in the left upper lobe concerning for pneumonia.
Patient is suspected to have an atypical pneumonia.
Assessment and plan
79-year-old with severe COPD on chronic azithromycin and 5 L home O2 presenting to the Emergency Department with left-sided flank chest and abdominal pain without any significant change in pulmonary status but found to have x-ray with increased
pulmonary markings/interstitial pattern in the left upper lobe concerning for atypical pneumonia/pneumonitis ('Asymmetric increased pulmonary markings, left greater than right, at least in part could represent increased pulmonary vascularity, cannot
exclude additional process such as pneumonitis, especially on the left.'
- admit to med/surg
- covid/flu testing
- check procal
- continue her azithromycin with addition of ceftriaxone
- mrsa swab
- continue her usual inhalers for now, no evidence of acute copd exacerbation
- given no h/o chf, no evidence of vol o/d and asymmetrical markings unlikely chf
- pulmonary consultation
DVT PPX - lovenox sq
Code status - Full Code
[2025-03-16 21:37] LABS: COVID-19 Antigen Negative (Negative)
--- NOTE | 2025-03-16 23:14 | PTCARENOTE ---
Pt arrived to [facility] [address] from ED via stretcher. Pt able to ambulate into room 333 with staff assistance. Pt oriented to room, call singer within reach. AAOx3, 6L O2 NC 94%. Plan of care ongoing.
[2025-03-16] MEDS: CRESTOR 20 MG PO (23:17)
[2025-03-16] MEDS: MELATONIN 5 MG PO (23:17)
[2025-03-16] MEDS: DESYREL 50 MG PO (23:17)
[2025-03-16] MEDS: ZITHROMAX INFUSION 250 IV (23:44)
[2025-03-17] VITALS (8 sets, daily range): BP systolic 125–148; BP diastolic 47–87
--- NOTE | 2025-03-17 02:40 | DOWNTIME ---
There was a [employer] Client Dining Room Host/Hostess Downtime on 03/17/2025 from 0100 to 03/17/2025 at 0235. Downtime documentation of patient's care, including medication administrations, has been reconciled in the electronic record per guidelines. Refer to the
patient's paper chart under the miscellaneous tab to see printed paper medication records and downtime forms.
[2025-03-17] MEDS: STERILE WATER FOR INJECTION IV (02:41)
[2025-03-17] MEDS: MAXIPIME IV (02:41)
[2025-03-17 07:26] LABS: Hematocrit 34.4 % (37.0-47.0); Hemoglobin 9.8 g/dL (12.0-16.0); Mean Corp Hgb Conc. 28.5 g/dL (33.0-37.0); Mean Corpuscular Volume 94.0 fL (81.0-99.0); Platelet Count 264 10^3/uL (130-400); Red Cell Dist. Width 14.0 % (11.5-14.5)
[2025-03-17] MEDS: VENTOLIN NEBULES 2.5 MG INH (07:39)
[2025-03-17] MEDS: ADVAIR HFA 230/21 MCG INHALER 2 PUFF INH ×2 (07:39→19:19)
[2025-03-17] MEDS: SPIRIVA RESPIMAT 2.5 MCG 2 PUFF INH (07:39)
[2025-03-17] MEDS: STERILE WATER FOR INJECTION 10 ML IV ×3 (08:40→20:02)
[2025-03-17] MEDS: MAXIPIME 1000 MG IV ×3 (08:40→20:01)
[2025-03-17] MEDS: ZOLOFT 100 MG PO (08:41)
[2025-03-17] MEDS: OCUVITE SOFTGEL 1 CAP PO ×2 (08:41→20:00)
[2025-03-17] MEDS: ZOLOFT 25 MG PO (08:41)
[2025-03-17] MEDS: LOW STRENGTH ASPIRIN 81 MG PO (08:41)
[2025-03-17] MEDS: REFRESH EYE DROPS (PF) 1 DROPS BOTH EYES ×2 (08:41→20:00)
[2025-03-17] MEDS: ZYRTEC 10 MG PO (08:41)
[2025-03-17] MEDS: MUCINEX 1200 MG PO ×2 (08:44→20:00)
[2025-03-17] MEDS: ULTRAM 25 MG PO (08:47)
[2025-03-17] MEDS: TUMS CHEWABLE TABLET 500 MG PO (08:48)
[2025-03-17] MEDS: FLUSH (NSS) 2 FLUSH IV (08:52)
--- NOTE | 2025-03-17 09:00 | RR ---
A Rapid Response was called on this patient, please see Rapid Response form.
Pt displayed increased labored breathing. Use of accessory muscles observed. HR 100's-110's. PAULSON and at rest. Audible expiratory wheeze. Pulse ox 78-85% on 4 L. Pt assisted to sit on side of bed, pulse ox continues to be 80's-88% on 4L. Pt oxygen
increased to 9L. Hospitalist gerson texted, hospitalist at bedside, transfer order and high flow nasal cannula ordered. Respiratory at bedside. Respiratory decreased patient to 4-5L on mid flow NC. STAT CXR ordered, pt stood and pivoted to stretcher.
Pt pulse ox decreased to 80% and HR increased to 110's. Rapid response called. Rapid response team at bedside. Report provided to IMU RN.
[2025-03-17] MEDS: CELEBREX 200 MG PO (09:03)
--- NOTE | 2025-03-17 09:16 | W.PN.HOSP.TC ---
Today's Communication/Plan
-
Worsening hypoxia, currently on 9 L satting at 92%, patient feeling worse than yesterday, on lung exam diffuse wheezes and rales
Upgrade to IMU
High flow nasal cannula
Solu-Medrol 60 mg IV every 6
Chest x-ray
Assessment / Plan
Assessment / Plan
1. Pneumonia
Left lung PNA multifocal opacities
- pulmonary on board
- Covid/Influenza negative
MRSA pending
- IV Cefepime and Azithromycin
- supportive care
2. Acute on chronic hypoxic respiratory failure 2/2 acute exacrebation of COPD
4L home O2, today req up to 9L, weaned back down to 5-6L, transferred to IMU for more resp support
pulm toilet
Start IV steroids 60 mg IV Q6
- continue O2 wean to baseline as tolerated
- continue albuterol, azithromycin, benzonatate, cetirizine, ensifentrine, fluticasone, guaifenesin and umeclidinium
3. hypercholesterolemia
- continue rosuvastatin
4. anxiety/depression
- continue sertraline
Code status: DNR
DVT prophylaxis: Lovenox sq
Anticipated Discharge: > 48 hours
Subjective/Interval History
-
Date of Service: March 17, 2025
Patient feeling a bit worse today more short of breath
Denies chest pain or palpitations
Objective Data
-
Labs:
Laboratory Results
03/17/25
06:50
WBC 10.3
Hgb 9.8 L
Hct 34.4 L
Plt Count 264
Vital Signs:
Vital Signs
Temp Pulse Resp BP Pulse Ox
98.2 F 85 15 125/64 95
03/17/25 07:00 03/17/25 07:53 03/17/25 07:53 03/17/25 07:00 03/17/25 07:53
I&O
03/16/25 03/17/25 03/18/25
06:59 06:59 06:59
Intake Total 480 / 480
Balance 480 / 480
Review of Systems
-
All other systems: Reviewed and negative
Physical Exam
-
General: Respiratory Distress
HEENT: Moist Mucous Membranes, Anicteric and PERRLA
Respiratory: Wheezes, Rales and Rhonchi
Cardiac: Regular Rhythm and S1/S2; Negative Murmur, Rub or Gallop
GI: Soft, Nontender, Nondistended and Normal Bowel Sounds
Musculoskeletal: No Edema
Skin: Warm and Dry; Negative Rash, Ulcers or Lesions
Neuro: Awake and AO x 3
Hematologic / Lymphatic: No Lymphadenopathy
Psych: Calm
Data Reviewed
-
Diagnostic Radiology: Image personally visualized and interpreted (Similar appearance of the opacities throughout the left lung favored to represent multifocal pneumonia.) and Report Reviewed by me
Labs: Labs Reviewed by me
[2025-03-17] MEDS: SOLU-MEDROL PF 60 MG IV ×3 (09:27→21:10)
[2025-03-17 09:42] LABS: Glucose - Point of Care 131 mg/dl (70-99)
--- NOTE | 2025-03-17 10:23 | CON.PUL ---
Consultation
Consultation Request
Date/Time Consultation Requested: 03/17/2025-8:30 AM
Date/Time Consultation Performed: 03/17/2025-9 AM
Requesting Provider: Hospitalist
Performing Provider: Dr. Ovalle
Reason for Consultation: Shortness of breath
Medical History
-
Chief Complaint: Shortness of breath
History of Present Illness:
79-year-old former smoking female with advanced COPD on 4 L of oxygen, anxiety, depression, hypertension, hyperlipidemia, radiculopathy presented with fatigue and increasing shortness of breath felt to have significant COPD exacerbation and
pulmonary consulted for COPD exacerbation 03/17/2025. She has significant shortness of breath with minimal exertion. She denies any chest pain, chest tightness, chest congestion, productive cough, pleurisy, but admits to some wheezing and dyspnea
with minimal exertion. She does not complain of any abdominal pain, nausea, leg swelling or focal weakness.
Past Medical History
Past Medical History: None (COPD-advanced on 4 L oxygen. Lung nodule right middle lobe resolved 01/2022. BELINDA-noncompliant with CPAP. Hypertension. Hyperlipidemia. Anxiety/depression. Spondylosis. Breast cancer 2007/left mastectomy. Chronic
back pain. Insomnia. Macular degeneration.)
Social History
Tobacco: Former Smoker (Started 01/28/1964 and quit 02/04/[id number]-rfgn-year smoking history)
Alcohol: None
Drug: None
Personal: (2 children)
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
Occupational Exposures: No known asbestos exposure
Environmental Exposures: No known tuberculosis exposure
Family History
Family History: Reviewed & Not Pertinent (Sister-COPD and lung cancer. Another sister with COPD. Mother cancer of the stomach and lungs.)
Allergies / Home Medications
Allergies
Allergy/AdvReac Type Severity Reaction Status Date / Time
No Known Allergies Allergy Verified 09/10/24 15:55
Home Medications
�Medication �Instructions �Recorded �Confirmed �Last Taken �Type
acetaminophen 325 mg tablet 650 mg PO Q4HPRN PRN mild 01/13/24 03/16/25 Unknown History
pain/fever >100.4
albuterol sulfate 2.5 mg/3 mL 2.5 mg inhalation R BID 01/13/24 03/16/25 Unknown History
(0.083 %) solution for nebulization Lung/Breathing Issues
albuterol sulfate 90 mcg/actuation 2 puff inhalation R Q4HPRN PRN sob 01/13/24 03/16/25 Unknown History
aerosol inhaler
azithromycin 250 mg tablet 250 mg PO MOWEFR Infection 01/13/24 03/16/25 Unknown History
benzonatate 100 mg capsule 100 mg PO Q8HPRN PRN cough 01/13/24 03/16/25 Unknown History
bisacodyl 10 mg rectal suppository 10 mg AZ [id number] PRN day 3 no bm, 01/13/24 03/16/25 Unknown History
mom ineffective
calcium carbonate 600 mg PO DAILY Supplement 01/13/24 03/16/25 Unknown History
cetirizine 10 mg tablet 10 mg PO DAILY Allergies 01/13/24 03/16/25 Unknown History
cholecalciferol (vitamin D3) 1,250 1,250 mcg PO QMONTH Supplement 01/13/24 03/16/25 Unknown History
mcg (50,000 unit) tablet
guaifenesin 600 mg tablet, 1,200 mg PO BID Cough 01/13/24 03/16/25 Unknown History
extended release 12 hr
lidocaine 4 % topical patch 1 patch topical DAILYPRN PRN lower 01/13/24 03/16/25 Unknown History
back
magnesium hydroxide 400 mg/5 mL 30 ml PO HSPRN PRN constipation 01/13/24 03/16/25 Unknown History
oral suspension (Milk of Magnesia)
melatonin 5 mg tablet 5 mg PO HS Sleep 01/13/24 03/16/25 Unknown History
polyvinyl alcohol-povidone (PF) 1 drp BOTH EYES BID Eye Condition 01/13/24 03/16/25 Unknown History
1.4 %-0.6 % eye drops in a
dropperette
rosuvastatin 20 mg tablet 20 mg PO HS High Cholesterol 01/13/24 03/16/25 Unknown History
sertraline 100 mg tablet 125 mg PO DAILY Depression 01/13/24 03/16/25 Unknown History
sodium chloride 0.65 % nasal spray 2 spray intranasal DAILYPRN PRN 01/13/24 03/16/25 Unknown History
aerosol (Saline Mist) dry nose
trazodone 50 mg tablet 50 mg PO HS Sleep 01/13/24 03/16/25 Unknown History
vit C 250 mg-vit E 90 mg-zinc 40 1 cap PO BID Supplement 01/13/24 03/16/25 Unknown History
mg-copper 1 [id number]-pnelzh
capsule (PreserVision AREDS-2)
aspirin 81 mg chewable tablet 81 mg PO DAILY #30 tabs 01/14/24 03/16/25 Unknown Rx
celecoxib 200 mg capsule 200 mg PO MOWEFR 09/10/24 03/16/25 Unknown History
tramadol 25 mg tablet 25 mg PO Q8HPRN PRN moderate pain 09/10/24 03/16/25 09/10/24 12:00 History
ensifentrine 3 mg/2.5 mL 2.5 ml inhalation BID 03/16/25 03/16/25 Unknown History
suspension for nebulization
(Ohtuvayre)
fluticasone 500 mcg-salmeterol 50 1 inh inhalation BID 03/16/25 03/16/25 Unknown History
mcg/dose blistr powdr for
inhalation
umeclidinium 62.5 mcg/actuation 1 inh inhalation DAILY 03/16/25 03/16/25 Unknown History
blister powder for inhalation
Review of Systems
-
Unable to Obtain full review of systems at this time due to: Other ( per HPI)
Vitals / Labs / Diagnostic Testing
Vital Signs
Temp Pulse Resp BP Pulse Ox
98.2 F 85 15 125/64 95
03/17/25 07:00 03/17/25 07:53 03/17/25 07:53 03/17/25 07:00 03/17/25 07:53
Lab Data
03/17/25 06:50
03/16/25 15:18
Microbiology
03/16/25 21:10 Nasal Swab Influenza Types A & B (GRACIELA) - Final
Negative for Influenza A & B, NAAT
Negative results must be combined with clinical observations
and patient history.
Nucleic Acid Amplification test (NAAT)performed on the
[employer] platform.
Diagnostic Testing:
Physical Exam
-
Exam:
Well-nourished and well-developed in no apparent distress
HEENT-atraumatic, normocephalic
Neck-supple, no JVD, no bruit
Heart-regular rate and rhythm-no murmurs, rubs or gallops
Chest with diminished breath sounds, prolonged expiratory time, expiratory wheezes and barrel chested
Back without tenderness
Abdomen-soft, nontender, nondistended, no hepatosplenomegaly
Extremities-no cyanosis, clubbing, trace lower extremity edema
Integument-intact, no rashes, lesions or ecchymosis
Neurology-alert and oriented, nonfocal motor and sensory exam
Assessment
-
79-year-old former smoking female with advanced COPD on 4 L of oxygen, anxiety, depression, hypertension, hyperlipidemia, radiculopathy presented with fatigue and increasing shortness of breath felt to have significant COPD exacerbation and
pulmonary consulted for COPD exacerbation 03/17/2025.
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
Aozcgt-smtwejspax-jlxhnekrkj 9.8
Mild hyperglycemia
Conditions present prior to admission:
COPD-advanced on 4 L oxygen-followed by Dr. Reid-maintained on Advair, Spiriva, albuterol nebulizers, chronic azithromycin, Ohtuvayre and oxygen 4-5 L [id number]-rhdhy, declined rehab, declined Trilogy ventilator
Lung nodule right middle lobe resolved 01/2022.
BELINDA-noncompliant with CPAP.
Hypertension.
Hyperlipidemia.
Anxiety/depression.
Spondylosis.
Breast cancer 2007/left mastectomy.
Chronic back pain.
Insomnia.
Macular degeneration.
DNR-at office visit December 2024 she stated she would not want to be hospitalized for lung disease and her family was aware of her wishes
Plan
Patient with end-stage COPD on chronic oxygen presents with pneumonia and severe COPD exacerbation
Followed by Dr. Reid-maintained on Advair, Spiriva, albuterol nebulizers, chronic azithromycin, Ohtuvayre and oxygen 4-5 L [id number], declined rehab, declined Trilogy ventilator
Radiographs including chest x-ray, CT chest, low-dose CAT scans, CT of the chest abdomen and pelvis as well as spirometry, venous blood gases, alpha 1 antitrypsin levels, and echocardiogram are summarized below
Supplemental oxygen as needed-on chronic oxygen 5 L
High flow oxygen if needed
BiPAP and noninvasive ventilation if needed
Patient is a DO NOT INTUBATE
Aspiration precautions
Advair continues
Spiriva continues-hold and begin DuoNebs
Nebulizers
Steroids zyugcfdiq-Qxhu-Ducxlo 60 mg IV every 6 hours
Mucus clearing devices
Mucolytic's-Mucinex 1200 mg twice daily
Check cultures
Sputum culture if possible
Empiric antibiotics-cefepime and azithromycin
Influenza negative
MRSA pending
Blood cultures negative
Follow hemoglobin
Transfuse if needed
Monitor blood sugar
Insulin supplementation if needed
DVT prophylaxis-on Lovenox
Nutrition
Early mobilization
The patient last saw Dr. Peyton Reid in the pulmonary office 01/14/2025-has an appointment 07/07/2025-Will recommend sooner follow-up after discharge
Diagnostic data:
Chest x-ray 12/10/2024-moderate mid left lung atelectasis which is new
Chest x-ray 03/16/2025-asymmetrically increased pulmonary markings left greater than right could represent pulmonary vascular but cannot exclude pneumonitis specially on the left
Chest x-ray 03/17/2025-no significant changes favored multifocal pneumonia
CT chest 12/10/2024-no pulmonary embolism, left upper lobe pneumonia, mild bilateral hilar lymphadenopathy, cystic changes throughout the lungs consistent with emphysema and new mild nodular left lower lobe atelectasis
LDCT 01/20/2024: Stable tiny 1 mm pulmonary nodule in the posterior lateral left upper lobe.� Mild to moderate emphysematous lung changes.� Minor postinflammatory pleural-parenchymal scarring in the lingula.
CT chest/abdomen/pelvis angio 09/10/2024: No aneurysm or dissection of aorta. No PE. Moderate to advanced emphysematous lung changes. No pneumonia.� Moderate to advanced sigmoid diverticulosis.� No acute diverticulitis.�������
Melvin 01/14/25: FEV1 0.47L 24%, FVC 1.46L 56%, ratio 32 (severe obstruction).�������
Spirometry-07/16/19: Spirometry demonstrated severe obstructive lung disease. The forced vital capacity was 1.86 L Postbronchodilator. Before bronchodilator the FEV1 was 0.61 L or 28% of predicted.Total lung capacity was 5.9 L or 119% of predicted.
RV/TLC ratio was 78 predicted value was 44. Air trapping and hyperinflation was present. The diffusing capacity could not be performed as the FEV1 was less than 0.75.
VBG pH 7.35, pCO2 66, pO2 42, HCO3 36.4, O2 sat 75.3 on VBG 09/11/24
01/25/23: Alpha-1 antitrypsin level-127. Alpha-1 antitrypsin phenotype MS
6MWT 11/19/24: At rest, O2 96% on 2 L, heart rate 84.� At 1 minute of ambulation, O2 increased to 5 L to keep O2 above 88%.� Required 6 L O2 to keep O2 above 88% throughout remainder of walk. Max heart rate 105. 3/10 on dyspnea scale. Ambulated 300
feet.
Echo 01/14/2024: Normal LV size and function. EF 60 to 65%.� Mild MS.� Mild MR. Mildly dilated LA.� Trace AR
Data Reviewed
-
PFT: Report reviewed by me
EKG: Report reviewed by me
Radiology: Image personally visualized and interpreted and Report reviewed by me
CT Scan: Image personally visualized and interpreted and Report reviewed by me
Medical Tests (Nuc Med, Echo etc): Report reviewed by me
Labs: Labs reviewed by me
Old Records: Reviewed
Total Time Spent with Patient (in minutes): 75
--- NOTE | 2025-03-17 10:34 | PTCARENOTE ---
Received patient into room 3345 from [facility]. Patient presents with eyes closed but opens to commands, she is aaox3. Pt reports that she is 'tired' but does not know why. Pt's oxygen adjusted to 6L midflow. Pt reports breathing is comfortable. Lungs
very diminished and poor inspiratory effort. Encouraged patient to take deep breaths. Pt asking for daniel robbie, provided. Portable chest XR taken. Assessment, care and VS as charted.
[2025-03-17] MEDS: DUONEB 3 ML INH ×3 (11:43→19:19)
[2025-03-17 12:06] LABS: B.E. 9.9 mmol/L; HCO3 37.0 mmol/L (21-28); O2 Saturation % 98.7 % (94-98); PCO2 64 mmHg (32-35); PO2 83 mmHg (83-108)
--- NOTE | 2025-03-17 12:59 | CM ---
Addendum entered by Rosalie Hackett 03/17/25 13:05:
Patient stated she has been using her wheelchair and peddling but would like to return to a rollator when possible. CM will call to confirm discharge planning needs with [facility] admissions.
Original Note:
Patient seen at bedside in IMU. Patient from [facility] LT. Patient s/p rapid per chart review. Patient plan is for return to SNF at [facility] when medically appropriate. CM will call to confirm prior level of care needs. Patient PCP is Dr. Segovia and per
chart review patient uses O2 24/ at facility. CM will continue to follow for discharge planning needs.
Plan - return to [facility]
R - [phone]
F - [phone]
--- NOTE | 2025-03-17 14:38 | PTCARENOTE ---
Granddaughter, Xiomara who works on , at bedside and updated.
[2025-03-17] MEDS: LOVENOX 40 MG SC (17:01)
[2025-03-17] MEDS: CRESTOR 20 MG PO (21:10)
[2025-03-17] MEDS: DESYREL 50 MG PO (21:10)
[2025-03-17] MEDS: MELATONIN 5 MG PO (21:10)
[2025-03-17] MEDS: ZITHROMAX INFUSION 250 IV (23:00)
[2025-03-18] VITALS (12 sets, daily range): BP systolic 108–151; BP diastolic 41–92; PULSE 107; O2SAT 94
[2025-03-18] MEDS: MAXIPIME 1000 MG IV ×4 (03:01→20:04)
[2025-03-18] MEDS: SOLU-MEDROL PF 60 MG IV ×4 (03:02→20:05)
[2025-03-18] MEDS: STERILE WATER FOR INJECTION 10 ML IV ×4 (03:02→20:04)
[2025-03-18 03:45] LABS: Hematocrit 31.0 % (37.0-47.0); Hemoglobin 9.1 g/dL (12.0-16.0); Mean Corp Hgb Conc. 29.4 g/dL (33.0-37.0); Mean Corpuscular Volume 91.7 fL (81.0-99.0); Nucleated Red Blood Cells % 0 %; Platelet Count 248 10^3/uL (130-400); Red Cell Dist. Width 13.6 % (11.5-14.5)
[2025-03-18 04:08] LABS: Blood Urea Nitrogen 21 mg/dl (7-17); Calcium 9.1 mg/dl (8.4-10.2); Carbon Dioxide 35 mmol/L (22-30); Chloride 104 mmol/L (98-107); Estimated Creatinine Clearance 73 ml/min; Glucose 131 mg/dl (70-99); Potassium 4.4 mmol/L (3.5-5.1); Sodium 144 mmol/L (135-145); eGFR > 60.00
[2025-03-18] MEDS: DUONEB 3 ML INH ×4 (07:33→19:46)
[2025-03-18] MEDS: ADVAIR HFA 230/21 MCG INHALER 2 PUFF INH ×2 (07:33→19:46)
[2025-03-18] MEDS: TUMS CHEWABLE TABLET PO (09:36)
[2025-03-18] MEDS: MUCINEX 1200 MG PO ×2 (09:36→20:03)
[2025-03-18] MEDS: LOW STRENGTH ASPIRIN 81 MG PO (09:36)
[2025-03-18] MEDS: ZOLOFT 100 MG PO (09:36)
[2025-03-18] MEDS: ZYRTEC 10 MG PO (09:36)
[2025-03-18] MEDS: OCUVITE SOFTGEL 1 CAP PO ×2 (09:36→20:04)
[2025-03-18] MEDS: ZOLOFT 25 MG PO (09:36)
[2025-03-18] MEDS: REFRESH EYE DROPS (PF) 1 DROPS BOTH EYES ×2 (09:50→20:04)
--- NOTE | 2025-03-18 10:18 | W.PN.PUL.V3 ---
Today's Communication / Plan
-
No change in steroids.
Wean FiO2.
Slowly increase activity.
Empiric antibiotics.
Assessment
-
79-year-old former smoking female with advanced COPD on 4 L of oxygen, anxiety, depression, hypertension, hyperlipidemia, radiculopathy presented with fatigue and increasing shortness of breath felt to have significant COPD exacerbation and
pulmonary consulted for COPD exacerbation 03/17/2025.
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
Nuwnqe-zkvbohfphe-pejzpercxf 9.8
Mild hyperglycemia
Conditions present prior to admission:
COPD-advanced on 4 L oxygen-followed by Dr. Reid-maintained on Advair, Spiriva, albuterol nebulizers, chronic azithromycin, Ohtuvayre and oxygen 4-5 L [id number]-hthwn, declined rehab, declined Trilogy ventilator
Lung nodule right middle lobe resolved 01/2022.
BELINDA-noncompliant with CPAP.
Hypertension.
Hyperlipidemia.
Anxiety/depression.
Spondylosis.
Breast cancer 2008/left mastectomy.
Chronic back pain.
Insomnia.
Macular degeneration.
DNR-at office visit December 2024 she stated she would not want to be hospitalized for lung disease and her family was aware of her wishes
Plan
Patient with end-stage COPD on chronic oxygen presents with pneumonia and severe COPD exacerbation
Followed by Dr. Reid-maintained on Advair, Spiriva, albuterol nebulizers, chronic azithromycin, Ohtuvayre and oxygen 4-5 L [id number]-vhj-uqzsj, declined rehab, declined Trilogy ventilator
Radiographs including chest x-ray, CT chest, low-dose CAT scans, CT of the chest abdomen and pelvis as well as spirometry, venous blood gases, alpha 1 antitrypsin levels, and echocardiogram are summarized below
Supplemental oxygen as needed-on chronic oxygen 5 L-Currently on 5 L-93% saturation
High flow oxygen if needed
BiPAP and noninvasive ventilation if needed
Patient is a DO NOT INTUBATE
Aspiration precautions
Advair continues
Spiriva continues-hold and begin DuoNebs
Nebulizers
Steroids viylmdhfw-Fwqv-Crjotg 60 mg IV every 6 hours-begin to wean in the next 24 hours
Mucus clearing devices
Mucolytic's-Mucinex 1200 mg twice daily
Check cultures
Sputum culture if possible
Empiric antibiotics-cefepime and azithromycin
Influenza negative
MRSA pending
Blood cultures negative
Follow hemoglobin
Transfuse if needed
Monitor blood sugar
Insulin supplementation if needed
DVT prophylaxis-on Lovenox
Nutrition
Early mobilization
The patient last saw Dr. Peyton Reid in the pulmonary office 01/14/2025-has an appointment 07/07/2025-Will recommend sooner follow-up after discharge
Diagnostic data:
Chest x-ray 12/10/2024-moderate mid left lung atelectasis which is new
Chest x-ray 03/16/2025-asymmetrically increased pulmonary markings left greater than right could represent pulmonary vascular but cannot exclude pneumonitis specially on the left
Chest x-ray 03/17/2025-no significant changes favored multifocal pneumonia
CT chest 12/10/2024-no pulmonary embolism, left upper lobe pneumonia, mild bilateral hilar lymphadenopathy, cystic changes throughout the lungs consistent with emphysema and new mild nodular left lower lobe atelectasis
LDCT 01/20/2024: Stable tiny 1 mm pulmonary nodule in the posterior lateral left upper lobe.� Mild to moderate emphysematous lung changes.� Minor postinflammatory pleural-parenchymal scarring in the lingula.
CT chest/abdomen/pelvis angio 09/10/2024: No aneurysm or dissection of aorta. No PE. Moderate to advanced emphysematous lung changes. No pneumonia.� Moderate to advanced sigmoid diverticulosis.� No acute diverticulitis.�������
Slayden 01/14/25: FEV1 0.47L 24%, FVC 1.46L 56%, ratio 32 (severe obstruction).�������
Spirometry-07/16/19: Spirometry demonstrated severe obstructive lung disease. The forced vital capacity was 1.86 L Postbronchodilator. Before bronchodilator the FEV1 was 0.61 L or 28% of predicted.Total lung capacity was 5.9 L or 119% of predicted.
RV/TLC ratio was 78 predicted value was 44. Air trapping and hyperinflation was present. The diffusing capacity could not be performed as the FEV1 was less than 0.75.
VBG pH 7.35, pCO2 66, pO2 42, HCO3 36.4, O2 sat 75.3 on VBG 09/11/24
01/25/23: Alpha-1 antitrypsin level-127. Alpha-1 antitrypsin phenotype MS
6MWT 11/19/24: At rest, O2 96% on 2 L, heart rate 84.� At 1 minute of ambulation, O2 increased to 5 L to keep O2 above 88%.� Required 6 L O2 to keep O2 above 88% throughout remainder of walk. Max heart rate 105. 3/10 on dyspnea scale. Ambulated 300
feet.
Echo 01/14/2024: Normal LV size and function. EF 60 to 65%.� Mild MS.� Mild MR. Mildly dilated LA.� Trace AR
Subjective Data
-
Date of Service:
Date of Service: March 18, 2025
Chief Complaint: Pulmonary Follow Up and Dyspnea Follow Up
Subjective:
, No shortness of breath, rest, has significant shortness breath with minimal exertion, no chest pain or abdominal pain
Review of Systems
General: Other ( per HPI)
Objective Data
Data Reviewed
Vital Signs / I&O:
Vital Signs
Temp Pulse Resp BP Pulse Ox
98.1 F 104 20 122/43 92
03/18/25 08:10 03/18/25 08:00 03/18/25 08:00 03/18/25 08:00 03/18/25 08:00
Intake and Output
03/17/25 03/18/25 03/19/25
06:59 06:59 06:59
Intake Total 480 / 480 240 / 240 240 / 240
Output Total 800 / 800 250 / 250
Balance 480 / 480 -560 / -560 -10 / -10
SaO2: 92
Nasal Cannula flow liters per minute: 5
Physical Exam
General: Respiratory Distress (n) and Comfortable
HEENT: Normocephalic, Anicteric and Moist Mucous Membranes
Cardiovascular: Regular Rhythm and Murmur
Respiratory: Clear ( diminished breath sounds and prolonged expiratory time), Crackles (n), Non-Labored Respirations, Accessory Resp Muscle Use (n) and Stridor (n)
GI: Soft, Non Distended and Non Tender
Neurology: Awake, Alert and No Motor Deficits
Skin: Warm, Good Color, Cyanosis, Jaundice (n), Rash (n) and Bruising
Labs/Micro/Reports
Lab Data
03/18/25 03:25
03/18/25 03:25
Laboratory Results
03/17/25
11:58
pH 7.37
pCO2 64 H
pO2 83
HCO3 37.0 H
O2 Delivery Level
Microbiology
03/16/25 21:10 Nose MRSA Screen - Final
No Methicillin Resistant Staphylococcus aureus isolated.
03/16/25 19:56 Blood/Venous Blood Culture - Preliminary
No Growth in 24 hours- Final report to follow
03/16/25 19:56 Blood/Venous Blood Culture - Preliminary
No Growth in 24 hours- Final report to follow
03/16/25 21:10 Nasal Swab Influenza Types A & B (GRACIELA) - Final
Negative for Influenza A & B, NAAT
Negative results must be combined with clinical observations
and patient history.
Nucleic Acid Amplification test (NAAT)performed on the
[employer] platform.
[2025-03-18] MEDS: TOPROL XL 12.5 MG PO (13:27)
--- NOTE | 2025-03-18 14:43 | CM ---
Patient seen at bedside in IMU patient plan continues to be to return to SNF; [facility]. CM will continue to follow for discharge planning needs.
Plan; return to SNF; [facility]
--- NOTE | 2025-03-18 15:17 | W.PN.HOSP.TC ---
Today's Communication/Plan
-
5-6L O2, continue IV abx, Solu-Medrol IV.
Assessment / Plan
Assessment / Plan
1. Pneumonia
Left lung PNA multifocal opacities
- pulmonary on board
- Covid/Influenza negative
MRSA screen negative
- Continue IV Cefepime and Azithromycin
- supportive care
2. Acute on chronic hypoxic respiratory failure 2/2 acute exacrebation of COPD
4L home O2, today req up to 9L, weaned back down to 5-6L, transferred to IMU for more resp support
pulm toilet
Started IV steroids 60 mg IV Q6, wean when she starts to show improvement
- continue O2 wean to baseline as tolerated
- continue albuterol, azithromycin, benzonatate, cetirizine, ensifentrine, fluticasone, guaifenesin and umeclidinium
3. hypercholesterolemia
- continue rosuvastatin
4. anxiety/depression
- continue sertraline
Code status: DNR
DVT prophylaxis: Lovenox sq
Anticipated Discharge: > 48 hours
Subjective/Interval History
-
Date of Service: March 18, 2025
Patient not feeling well, still very short of breath especially with exertion, however does note she is able to cough some phlegm up which feels good
Objective Data
-
Labs:
Laboratory Results
03/18/25
03:25
WBC 5.3
Hgb 9.1 L
Hct 31.0 L
Plt Count 248
Sodium 144
Potassium 4.4
Chloride 104
Carbon Dioxide 35 H
BUN 21 H
Creatinine 0.5 L
Glucose 131 H
Calcium 9.1
Vital Signs:
Vital Signs
Temp Pulse Resp BP Pulse Ox
98.4 F 100 23 130/50 94
03/18/25 12:04 03/18/25 15:00 03/18/25 15:00 03/18/25 12:00 03/18/25 15:00
I&O
03/17/25 03/18/25 03/19/25
06:59 06:59 06:59
Intake Total 480 / 480 240 / 240 240 / 240
Output Total 800 / 800 250 / 250
Balance 480 / 480 -560 / -560 -10 / -10
Review of Systems
-
All other systems: Reviewed and negative
Physical Exam
-
General: Respiratory Distress
HEENT: Moist Mucous Membranes, Anicteric and PERRLA
Respiratory: Wheezes, Rales and Rhonchi
Cardiac: Regular Rhythm and S1/S2; Negative Murmur, Rub or Gallop
GI: Soft, Nontender, Nondistended and Normal Bowel Sounds
Musculoskeletal: No Edema
Skin: Warm and Dry; Negative Rash, Ulcers or Lesions
Neuro: Awake and AO x 3
Hematologic / Lymphatic: No Lymphadenopathy
Psych: Calm
Data Reviewed
-
Diagnostic Radiology: Image personally visualized and interpreted (Similar appearance of the opacities throughout the left lung favored to represent multifocal pneumonia.) and Report Reviewed by me
Labs: Labs Reviewed by me
[2025-03-18] MEDS: LOVENOX 40 MG SC (17:10)
[2025-03-18] MEDS: CRESTOR 20 MG PO (20:05)
[2025-03-18] MEDS: MELATONIN 5 MG PO (20:05)
[2025-03-18] MEDS: DESYREL 50 MG PO (20:05)
--- NOTE | 2025-03-18 20:44 | PTCARENOTE ---
Pt AAOx3, requested HS medications early, as pt states she is 'very tired from being OOB to the chair' today. Pt maintained on 5L O2 at this time. Will continue to assess and titrate O2 as needed. Call singer within reach. Education provided contract administration coordinator
singer use, pt receptive. Care ongoing.
[2025-03-18] MEDS: ZITHROMAX INFUSION 250 IV (22:05)
[2025-03-19] VITALS (11 sets, daily range): BP systolic 109–154; BP diastolic 51–91
[2025-03-19] MEDS: STERILE WATER FOR INJECTION 10 ML IV ×4 (03:11→20:41)
[2025-03-19] MEDS: MAXIPIME 1000 MG IV ×4 (03:11→20:24)
[2025-03-19] MEDS: SOLU-MEDROL PF 60 MG IV ×3 (03:14→20:25)
[2025-03-19 06:23] LABS: Hematocrit 29.6 % (37.0-47.0); Hemoglobin 9.0 g/dL (12.0-16.0); Mean Corp Hgb Conc. 30.4 g/dL (33.0-37.0); Mean Corpuscular Volume 90.5 fL (81.0-99.0); Nucleated Red Blood Cells % 0 %; Platelet Count 269 10^3/uL (130-400); Red Cell Dist. Width 13.7 % (11.5-14.5)
[2025-03-19 06:41] LABS: Blood Urea Nitrogen 24 mg/dl (7-17); Calcium 9.0 mg/dl (8.4-10.2); Carbon Dioxide 37 mmol/L (22-30); Chloride 102 mmol/L (98-107); Estimated Creatinine Clearance 73 ml/min; Glucose 147 mg/dl (70-99); Potassium 4.8 mmol/L (3.5-5.1); Sodium 143 mmol/L (135-145); eGFR > 60.00
[2025-03-19] MEDS: DUONEB 3 ML INH ×4 (07:30→21:03)
[2025-03-19] MEDS: ADVAIR HFA 230/21 MCG INHALER 2 PUFF INH ×2 (07:30→21:02)
[2025-03-19] MEDS: TUMS CHEWABLE TABLET 500 MG PO (08:20)
[2025-03-19] MEDS: MUCINEX 1200 MG PO ×2 (08:20→20:26)
[2025-03-19] MEDS: LOW STRENGTH ASPIRIN 81 MG PO (08:21)
[2025-03-19] MEDS: OCUVITE SOFTGEL 1 CAP PO ×2 (08:21→20:27)
[2025-03-19] MEDS: ZYRTEC 10 MG PO (08:21)
[2025-03-19] MEDS: TOPROL XL 12.5 MG PO (08:21)
[2025-03-19] MEDS: REFRESH EYE DROPS (PF) 1 DROPS BOTH EYES ×2 (08:22→20:26)
[2025-03-19] MEDS: ZOLOFT 100 MG PO (08:22)
[2025-03-19] MEDS: ZOLOFT 25 MG PO (08:29)
[2025-03-19] MEDS: CELEBREX 200 MG PO (08:37)
--- NOTE | 2025-03-19 10:00 | W.PN.HOSP.TC ---
Today's Communication/Plan
-
5-6L O2, change abx and steroids to po
plan dc over the weekend back to [facility]
Assessment / Plan
Assessment / Plan
1. Pneumonia
Left lung PNA multifocal opacities
- pulmonary on board
- Covid/Influenza negative
MRSA screen negative
- Continue IV Cefepime and Azithromycin change to oral
- supportive care
cultures negative
2. Acute on chronic hypoxic respiratory failure 2/2 acute exacrebation of COPD
4L home O2, today req up to 9L, weaned back down to 5-6L, transferred to IMU for more resp support
pulm toilet
Started IV steroids 60 mg IV Q6, wean to oral when she starts to show improvement
- continue O2 wean to baseline as tolerated
- continue albuterol, azithromycin, benzonatate, cetirizine, ensifentrine, fluticasone, guaifenesin and umeclidinium
discussed care with pulm
3. hypercholesterolemia
- continue rosuvastatin
4. anxiety/depression
- continue sertraline
5. anemia
stable/baseline
montior h/h
Code status: DNR
DVT prophylaxis: Lovenox sq
Anticipated Discharge: 24 - 48 hours
Subjective/Interval History
-
Date of Service: March 19, 2025
PT feeling much better, able to get to commode easier
Objective Data
-
Labs:
Laboratory Results
03/19/25
06:07
WBC 11.5 H
Hgb 9.0 L
Hct 29.6 L
Plt Count 269
Sodium 143
Potassium 4.8
Chloride 102
Carbon Dioxide 37 H
BUN 24 H
Creatinine 0.5 L
Glucose 147 H
Calcium 9.0
Vital Signs:
Vital Signs
Temp Pulse Resp BP Pulse Ox
98.4 F 109 24 154/90 100
03/19/25 07:55 03/19/25 08:21 03/19/25 07:33 03/19/25 08:21 03/19/25 07:33
I&O
03/18/25 03/19/25 03/20/25
06:59 06:59 06:59
Intake Total 240 / 240 240 / 240
Output Total 800 / 800 250 / 250
Balance -560 / -560 -10 / -10
Review of Systems
-
All other systems: Reviewed and negative
Physical Exam
-
General: Respiratory Distress
HEENT: Moist Mucous Membranes, Anicteric and PERRLA
Respiratory: Wheezes, Rales and Rhonchi
Cardiac: Regular Rhythm and S1/S2; Negative Murmur, Rub or Gallop
GI: Soft, Nontender, Nondistended and Normal Bowel Sounds
Musculoskeletal: No Edema
Skin: Warm and Dry; Negative Rash, Ulcers or Lesions
Neuro: Awake and AO x 3
Hematologic / Lymphatic: No Lymphadenopathy
Psych: Calm
Data Reviewed
-
Diagnostic Radiology: Image personally visualized and interpreted (Similar appearance of the opacities throughout the left lung favored to represent multifocal pneumonia.) and Report Reviewed by me
Labs: Labs Reviewed by me
--- NOTE | 2025-03-19 10:32 | W.PN.PUL.V3 ---
Today's Communication / Plan
-
Wean oxygen
Increase activity
Convert steroids in the next 24 hours
Finite course of antibiotics
Probable discharge in the next 24 hours
Outpatient pulmonary follow-up
Assessment
-
79-year-old former smoking female with advanced COPD on 4 L of oxygen, anxiety, depression, hypertension, hyperlipidemia, radiculopathy presented with fatigue and increasing shortness of breath felt to have significant COPD exacerbation and
pulmonary consulted for COPD exacerbation 03/17/2025.
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
Mngukl-bbqoebyltn-gfgrvgahir 9.8
Mild hyperglycemia
Conditions present prior to admission:
COPD-advanced on 4 L oxygen-followed by Dr. Reid-maintained on Advair, Spiriva, albuterol nebulizers, chronic azithromycin, Ohtuvayre and oxygen 4-5 L [id number], declined rehab, declined Trilogy ventilator
Lung nodule right middle lobe resolved 01/2022.
BELINDA-noncompliant with CPAP.
Hypertension.
Hyperlipidemia.
Anxiety/depression.
Spondylosis.
Breast cancer 2008/left mastectomy.
Chronic back pain.
Insomnia.
Macular degeneration.
DNR-at office visit December 2024 she stated she would not want to be hospitalized for lung disease and her family was aware of her wishes
Plan
Patient with end-stage COPD on chronic oxygen presents with pneumonia and severe COPD exacerbation
Followed by Dr. Reid-maintained on Advair, Spiriva, albuterol nebulizers, chronic azithromycin, Ohtuvayre and oxygen 4-5 L [id number]-rirhu, declined rehab, declined Trilogy ventilator
Radiographs including chest x-ray, CT chest, low-dose CAT scans, CT of the chest abdomen and pelvis as well as spirometry, venous blood gases, alpha 1 antitrypsin levels, and echocardiogram are summarized below
Supplemental oxygen as needed-on chronic oxygen 5 L-Currently on 5 L-93% saturation
High flow oxygen if needed
BiPAP and noninvasive ventilation if needed
Patient is a DO NOT INTUBATE
Aspiration precautions
Advair continues
Spiriva continues-hold and begin DuoNebs
Nebulizers
Steroids jbpgncxer-Kift-Zwadzh 60 mg IV every 6 hours-decrease to every 8 hours-convert to prednisone 40 mg with slow taper in the next 24 hours-taper to 10 mg until seen by pulmonary
Mucus clearing devices
Mucolytic's-Mucinex 1200 mg twice daily
Cultures reviewed
Sputum culture if possible
Empiric antibiotics-cefepime and azithromycin-change to oral antibiotics in the next 24 hours and finished a finite course
Influenza negative
MRSA negative
Blood cultures negative
Follow hemoglobin
Transfuse if needed
Monitor blood sugar
Insulin supplementation if needed
DVT prophylaxis-on Lovenox
Nutrition
Early mobilization
The patient last saw Dr. Peyton Reid in the pulmonary office 01/14/2025-has an appointment 07/07/2025-Will recommend sooner follow-up after discharge
Diagnostic data:
Chest x-ray 12/10/2024-moderate mid left lung atelectasis which is new
Chest x-ray 03/16/2025-asymmetrically increased pulmonary markings left greater than right could represent pulmonary vascular but cannot exclude pneumonitis specially on the left
Chest x-ray 03/17/2025-no significant changes favored multifocal pneumonia
CT chest 12/10/2024-no pulmonary embolism, left upper lobe pneumonia, mild bilateral hilar lymphadenopathy, cystic changes throughout the lungs consistent with emphysema and new mild nodular left lower lobe atelectasis
LDCT 01/20/2024: Stable tiny 1 mm pulmonary nodule in the posterior lateral left upper lobe.� Mild to moderate emphysematous lung changes.� Minor postinflammatory pleural-parenchymal scarring in the lingula.
CT chest/abdomen/pelvis angio 09/10/2024: No aneurysm or dissection of aorta. No PE. Moderate to advanced emphysematous lung changes. No pneumonia.� Moderate to advanced sigmoid diverticulosis.� No acute diverticulitis.�������
Melvin 01/14/25: FEV1 0.47L 24%, FVC 1.46L 56%, ratio 32 (severe obstruction).�������
Spirometry-07/16/19: Spirometry demonstrated severe obstructive lung disease. The forced vital capacity was 1.86 L Postbronchodilator. Before bronchodilator the FEV1 was 0.61 L or 28% of predicted.Total lung capacity was 5.9 L or 119% of predicted.
RV/TLC ratio was 78 predicted value was 44. Air trapping and hyperinflation was present. The diffusing capacity could not be performed as the FEV1 was less than 0.75.
VBG pH 7.35, pCO2 66, pO2 42, HCO3 36.4, O2 sat 75.3 on VBG 09/11/24
01/25/23: Alpha-1 antitrypsin level-127. Alpha-1 antitrypsin phenotype MS
6MWT 11/19/24: At rest, O2 96% on 2 L, heart rate 84.� At 1 minute of ambulation, O2 increased to 5 L to keep O2 above 88%.� Required 6 L O2 to keep O2 above 88% throughout remainder of walk. Max heart rate 105. 3/10 on dyspnea scale. Ambulated 300
feet.
Echo 01/14/2024: Normal LV size and function. EF 60 to 65%.� Mild MS.� Mild MR. Mildly dilated LA.� Trace AR
Subjective Data
-
Date of Service:
Date of Service: March 19, 2025
Chief Complaint: Pulmonary Follow Up and Dyspnea Follow Up
Subjective:
Denies any shortness of breath at rest, no chest pain, chest congestion, productive cough
Review of Systems
General: Other (Per HPI)
Objective Data
Data Reviewed
Vital Signs / I&O:
Vital Signs
Temp Pulse Resp BP Pulse Ox
98.4 F 109 24 154/90 100
03/19/25 07:55 03/19/25 08:21 03/19/25 07:33 03/19/25 08:21 03/19/25 07:33
Intake and Output
03/18/25 03/19/25 03/20/25
06:59 06:59 06:59
Intake Total 240 / 240 240 / 240
Output Total 800 / 800 250 / 250
Balance -560 / -560 -10 / -10
SaO2: 100
Nasal Cannula flow liters per minute: 5
Physical Exam
General: Respiratory Distress (n) and Comfortable
HEENT: Normocephalic, Anicteric and Moist Mucous Membranes
Cardiovascular: Regular Rhythm and Murmur
Respiratory: Clear ( diminished breath sounds and prolonged expiratory time), Crackles (n), Non-Labored Respirations, Accessory Resp Muscle Use (n) and Stridor (n)
GI: Soft, Non Distended and Non Tender
Neurology: Awake, Alert and No Motor Deficits
Skin: Warm, Good Color, Cyanosis, Jaundice (n), Rash (n) and Bruising
Labs/Micro/Reports
Lab Data
03/19/25 06:07
03/19/25 06:07
Microbiology
03/16/25 19:56 Blood/Venous Blood Culture - Preliminary
No Growth in 48 hours- Final report to follow
03/16/25 19:56 Blood/Venous Blood Culture - Preliminary
No Growth in 48 hours- Final report to follow
03/16/25 21:10 Nose MRSA Screen - Final
No Methicillin Resistant Staphylococcus aureus isolated.
03/16/25 21:10 Nasal Swab Influenza Types A & B (GRACIELA) - Final
Negative for Influenza A & B, NAAT
Negative results must be combined with clinical observations
and patient history.
Nucleic Acid Amplification test (NAAT)performed on the
[employer] platform.
[2025-03-19] MEDS: SOLU-MEDROL PF IV ×2 (10:59→11:13)
--- NOTE | 2025-03-19 11:50 | CM ---
Addendum entered by Rosalie Hackett 03/19/25 15:43:
IMM completed and signed form placed on chart, transportation forms completed and on chart.
Addendum entered by Rosalie Hackett 03/19/25 15:18:
over weekend please call supervisor litharge to [phone] or [phone] to update. please call report numbers as below in bold print.
Addendum entered by Rosalie Hackett 03/19/25 12:27:
Updated with Choco from [facility] admissions, patient able to return over weekend please call report. CM will send updated clinicals via all scripts.
Addendum entered by Rosalie Hackett 03/19/25 11:53:
Plan - return to [facility] pending admissions confirmation.
R - [phone]
F - [phone]
Original Note:
Patient seen at bedside in IMU. Patient for possible discharge back to SNF; [facility] over weekend. CM left for admissions to confirm plan and await call back. CM will send updated clinicals via all scripts. CM will continue to follow for discharge
planning needs.
Plan;SNF; return over weekend possibly awaiting admissions confirmation
[2025-03-19] MEDS: LOVENOX 40 MG SC (17:41)
[2025-03-19] MEDS: ZITHROMAX 500 MG PO (20:26)
[2025-03-19] MEDS: DESYREL 50 MG PO (21:40)
[2025-03-19] MEDS: CRESTOR 20 MG PO (21:40)
[2025-03-19] MEDS: MELATONIN 5 MG PO (21:40)
--- NOTE | 2025-03-19 22:59 | PTCARENOTE ---
Pt received from previous shift in bed. AAOx3, MECHOOPDA, forgetful to details. Telemetry = SR/occ PVCs. Full physical assessment documented (refer to worklist). Pt reports nocturnal incontinence, requesting purewick. Educated on risks of purewick,
verbalizes understanding. Purewick placed as pt desats when OOB --> BSC. #22 RFA INT patent. Call enmanuel w/in reach.
[2025-03-20] VITALS (8 sets, daily range): BP systolic 102–148; BP diastolic 40–76
[2025-03-20] MEDS: MAXIPIME 1000 MG IV ×3 (02:00→13:06)
[2025-03-20] MEDS: STERILE WATER FOR INJECTION 10 ML IV ×3 (02:00→13:07)
[2025-03-20] MEDS: SOLU-MEDROL PF 60 MG IV ×2 (04:24→13:06)
[2025-03-20 04:55] LABS: Hematocrit 31.8 % (37.0-47.0); Hemoglobin 9.4 g/dL (12.0-16.0); Mean Corp Hgb Conc. 29.6 g/dL (33.0-37.0); Mean Corpuscular Volume 92.7 fL (81.0-99.0); Nucleated Red Blood Cells % 0 %; Platelet Count 292 10^3/uL (130-400); Red Cell Dist. Width 13.9 % (11.5-14.5)
[2025-03-20 05:17] LABS: Blood Urea Nitrogen 27 mg/dl (7-17); Calcium 8.8 mg/dl (8.4-10.2); Carbon Dioxide 40 mmol/L (22-30); Chloride 101 mmol/L (98-107); Estimated Creatinine Clearance 73 ml/min; Glucose 137 mg/dl (70-99); Potassium 4.9 mmol/L (3.5-5.1); Sodium 142 mmol/L (135-145); eGFR > 60.00
[2025-03-20] MEDS: DUONEB 3 ML INH ×2 (07:28→15:10)
[2025-03-20] MEDS: ADVAIR HFA 230/21 MCG INHALER 2 PUFF INH (07:29)
--- NOTE | 2025-03-20 07:48 | W.PN.PUL3 ---
Addendum entered and electronically signed by Bandar Pak MD 03/20/25 16:21:
correction
Azithromycin 500mg, not 5
Original Note:
Today's Communication / Plan
-
Transition to prednisone 40 mg, wean by 10 mg every 7 days, stay on 10 mg until seen by pulmonary
Resume outpatient inhaler regimen
Complete additional 7 days of azithromycin 5 mg a day, then can transition to chronic regimen Saturday/Saturday/Saturday
Reviewed what activities to avoid
5-6 L of oxygen with activity. Patient already has concentrator at home
Disposition efforts
Assessment
-
79-year-old former smoking female with advanced COPD on 4 L of oxygen, anxiety, depression, hypertension, hyperlipidemia, radiculopathy presented with fatigue and increasing shortness of breath felt to have significant COPD exacerbation and
pulmonary consulted for COPD exacerbation 03/17/2025.
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
Vorqyz-zyfbstydnw-cupcdhcbtz 9.8
Mild hyperglycemia
Conditions present prior to admission:
COPD-advanced on 4 L oxygen-followed by Dr. Reid-maintained on Advair, Spiriva, albuterol nebulizers, chronic azithromycin, Ohtuvayre and oxygen 4-5 L [id number], declined rehab, declined Trilogy ventilator
Lung nodule right middle lobe resolved 01/2022.
BELINDA-noncompliant with CPAP.
Hypertension.
Hyperlipidemia.
Anxiety/depression.
Spondylosis.
Breast cancer 2008/left mastectomy.
Chronic back pain.
Insomnia.
Macular degeneration.
DNR-at office visit December 2024 she stated she would not want to be hospitalized for lung disease and her family was aware of her wishes
Plan/recommendations
At this time, patient appears to be objectively and subjectively improved
She feels she is at her baseline, and she is anxious for discharge
Ambulatory saturation of 81% on room air, 92% with 6 L
Patient has concentrator at home that goes up to 6 L
Patient with end-stage COPD on chronic oxygen presents with pneumonia and severe COPD exacerbation
Followed by Dr. Reid-maintained on Advair, Spiriva, albuterol nebulizers, chronic azithromycin, Ohtuvayre and oxygen 4-5 L [id number], declined rehab, declined Trilogy ventilator
Moving forward
Continue with 4 to 6 L at rest, 6 L with activity
Patient aware of importance of limiting activity
Transition to oral prednisone, 40 mg
She will require slow taper, decrease by 10 mg every 7 days until reaches 10 mg
At that time she should see pulmonary as outpatient
BiPAP and noninvasive ventilation if needed
Patient is a DO NOT INTUBATE
Aspiration precautions
Advair continues, okay to resume Spiriva at time of discharge
Spiriva continues-hold and begin DuoNebs
Mucolytic's-Mucinex 1200 mg twice daily
Cultures reviewed
Sputum culture if possible
Empiric antibiotics-cefepime and azithromycin-change to oral antibiotics in the next 24 hours and finished a finite course. Plan to discharge on Zithromax 500 mg a day, to end in 1 week
Resume chronic macrolide therapy thereafter
The patient last saw Dr. Peyton Reid in the pulmonary office 01/14/2025-has an appointment 07/07/2025-Will recommend sooner follow-up after discharge
Our office will contact patient to move appointment up within the next few weeks
Reviewed with patient at length
Reviewed with primary service
Disposition efforts
Diagnostic data:
Chest x-ray 12/10/2024-moderate mid left lung atelectasis which is new
Chest x-ray 03/16/2025-asymmetrically increased pulmonary markings left greater than right could represent pulmonary vascular but cannot exclude pneumonitis specially on the left
Chest x-ray 03/17/2025-no significant changes favored multifocal pneumonia
CT chest 12/10/2024-no pulmonary embolism, left upper lobe pneumonia, mild bilateral hilar lymphadenopathy, cystic changes throughout the lungs consistent with emphysema and new mild nodular left lower lobe atelectasis
LDCT 01/20/2024: Stable tiny 1 mm pulmonary nodule in the posterior lateral left upper lobe.� Mild to moderate emphysematous lung changes.� Minor postinflammatory pleural-parenchymal scarring in the lingula.
CT chest/abdomen/pelvis angio 09/10/2024: No aneurysm or dissection of aorta. No PE. Moderate to advanced emphysematous lung changes. No pneumonia.� Moderate to advanced sigmoid diverticulosis.� No acute diverticulitis.�������
Dexter 01/14/25: FEV1 0.47L 24%, FVC 1.46L 56%, ratio 32 (severe obstruction).�������
Spirometry-07/16/19: Spirometry demonstrated severe obstructive lung disease. The forced vital capacity was 1.86 L Postbronchodilator. Before bronchodilator the FEV1 was 0.61 L or 28% of predicted.Total lung capacity was 5.9 L or 119% of predicted.
RV/TLC ratio was 78 predicted value was 44. Air trapping and hyperinflation was present. The diffusing capacity could not be performed as the FEV1 was less than 0.75.
VBG pH 7.35, pCO2 66, pO2 42, HCO3 36.4, O2 sat 75.3 on VBG 09/11/24
01/25/23: Alpha-1 antitrypsin level-127. Alpha-1 antitrypsin phenotype MS
6MWT 11/19/24: At rest, O2 96% on 2 L, heart rate 84.� At 1 minute of ambulation, O2 increased to 5 L to keep O2 above 88%.� Required 6 L O2 to keep O2 above 88% throughout remainder of walk. Max heart rate 105. 3/10 on dyspnea scale. Ambulated 300
feet.
Echo 01/14/2024: Normal LV size and function. EF 60 to 65%.� Mild MS.� Mild MR. Mildly dilated LA.� Trace AR
Subjective Data
-
Date of Service:
Date of Service: March 20, 2025
Chief Complaint: Pulmonary Follow Up and Dyspnea Follow Up
Subjective:
Patient evaluated earlier this morning. She was observed while on the commode. She is anxious for discharge. She feels she is at her baseline. She denies any chest pain. She has some mild lightheadedness upon standing up but this resolves. Has
mild cough. Conversant, appears to be in good spirits
Objective Data
Data Reviewed
Vital Signs / I&O / Oxygen:
Vital Signs
Temp Pulse Resp BP Pulse Ox
98 F 87 22 132/55 99
03/20/25 03:33 03/20/25 07:31 03/20/25 07:31 03/20/25 06:00 03/20/25 07:31
Intake and Output
03/19/25 03/20/25 03/21/25
06:59 06:59 06:59
Intake Total 240 / 240 480 / 480
Output Total 250 / 250 300 / 300
Balance -10 / -10 180 / 180
SaO2 99
Nasal Cannula flow liters per 4
minute
Physical Exam
General: Comfortable
HEENT: Normocephalic, Anicteric and Moist Mucous Membranes
Cardiovascular: Regular Rhythm and Murmur
Respiratory: Clear ( diminished breath sounds and prolonged expiratory time), Crackles (n), Rhonchi (n), Non-Labored Respirations and Stridor (n)
Neurology: Awake, Alert and No Motor Deficits
Skin: Good Color, Cyanosis and Rash (n)
Labs/Micro/Reports
Lab Data
03/20/25 04:31
03/20/25 04:31
Microbiology
03/16/25 19:56 Blood/Venous Blood Culture - Preliminary
No Growth in 72 hours- Final report to follow
03/16/25 19:56 Blood/Venous Blood Culture - Preliminary
No Growth in 72 hours- Final report to follow
03/16/25 21:10 Nose MRSA Screen - Final
No Methicillin Resistant Staphylococcus aureus isolated.
[2025-03-20] MEDS: ZYRTEC 10 MG PO (08:27)
[2025-03-20] MEDS: LOW STRENGTH ASPIRIN 81 MG PO (08:27)
[2025-03-20] MEDS: OCUVITE SOFTGEL 1 CAP PO (08:27)
[2025-03-20] MEDS: TUMS CHEWABLE TABLET 500 MG PO (08:27)
[2025-03-20] MEDS: MUCINEX 1200 MG PO (08:28)
[2025-03-20] MEDS: REFRESH EYE DROPS (PF) 1 DROPS BOTH EYES (08:28)
[2025-03-20] MEDS: ZOLOFT 25 MG PO (08:29)
[2025-03-20] MEDS: TOPROL XL 12.5 MG PO (08:29)
[2025-03-20] MEDS: ZOLOFT 100 MG PO (08:29)
--- NOTE | 2025-03-20 10:22 | W.DCSUMMARY ---
Discharge Summary
Discharge Data
Date of Admission: 03/16/25
Date of Discharge: 03/20/25
Total time spent discharging patient (in min): 40
-
Pending Results: No
Hospital Course
Attending physician on day of discharge:
Consuelo Del Cid MD
Admission diagnosis:
Respiratory insufficiency
Discharge diagnosis:
Pneumonia
Acute on chronic hypoxic respiratory failure secondary to COPD exacerbation
Secondary diagnoses:
Hypercholesterolemia
Anxiety depression
Anemia
Consultations:
Pulmonology
Procedures:
None
Hospital course:
79 female with HTN, HLD, COPD on 4 L home O2 presented with fatigue, shortness of breath, admitted and treated as pneumonia, with IV antibiotics. Patient developed acute wheezes and worsening hypoxia, her oxygen was increased to 9L briefly before
being able to transition back to 5 to 6 L. She was started on IV steroids and pulmonology was consulted. After several days she had improvement in her symptoms. She was discharged with oral prednisone taper and oral antibiotics to complete
course. She will have outpatient follow-up with pulmonology.
Physical exam on discharge:
Gen: NAD
HEENT: PERRLA, EOMI, MMM, neck supple
Cards: RRR, no M/G/R
Resp: Lungs CTAB, no active wheeze
GI: soft, NT/ND/NABS
MSK: No edema
Skin: warm and dry, no rash, ulcer or lesions
Heme: No LAD
Psych: Calm
Neuro: AAOx3
Discharge disposition:
Back to [facility]
Discharge Plan
-
Patient Disposition: Assisted Living
Discharge Diagnosis/Procedures: Pneumonia and COPD exacerbation
Diet: Regular
Activity: As tolerated
Referrals:
Peyton Lindo DO [Active, Pulmonary Medicine] - in one to two weeks
Home Hayward MD [Family Provider, Internal Medicine]
Additional Discharge Medication Instructions: Taper off prednisone - 40mg once a day for 3 days, then 30mg for 3 days, then 20mg for 3 days, then 10mg until you see Dr. Reid in pulmonology
Prescriptions:
New
prednisone 10 mg Tablet
See Rx Instructions .ROUTE .COMPLEX Qty: 30 0RF
Rx Instructions:
Take By Mouth:
40 mg daily x3 days, 30 mg daily x3 days,
20 mg daily x3 days, 10 mg daily x3 days.
amoxicillin-pot clavulanate 875-125 mg tablet
1 tab PO BID Qty: 3 0RF
Continued
acetaminophen 325 mg Tablet
650 mg PO Q4HPRN PRN (Reason: mild pain/fever >100.4)
lidocaine 4 % Adhesive Patch,Medicated
1 patch TOPICAL DAILYPRN PRN (Reason: lower back)
albuterol sulfate 2.5 mg /3 mL (0.083 %) Solution For Nebulization
2.5 mg INHALATION R BID
trazodone 50 mg Tablet
50 mg PO HS
cetirizine 10 mg Tablet
10 mg PO DAILY
azithromycin 250 mg Tablet
250 mg PO MOWEFR
sertraline 100 mg Tablet
125 mg PO DAILY
calcium carbonate 600 mg calcium (1,500 mg) Tablet
600 mg PO DAILY
magnesium hydroxide [Milk of Magnesia] 400 mg/5 mL Suspension
30 ml PO HSPRN PRN (Reason: constipation)
benzonatate 100 mg Capsule
100 mg PO Q8HPRN PRN (Reason: cough)
bisacodyl 10 mg Suppository
10 mg IN [id number] PRN (Reason: day 3 no bm, mom ineffective)
albuterol sulfate 90 mcg/actuation Hfa Aerosol Inhaler
2 puff INHALATION R Q4HPRN PRN (Reason: sob)
polyvinyl alcohol-povidone(PF) 1.4-0.6 % Dropperette
1 drp BOTH EYES BID
Saline Mist 0.65 % Aerosol,[place]
2 spray INTRANASAL DAILYPRN PRN (Reason: dry nose)
rosuvastatin 20 mg Tablet
20 mg PO HS
melatonin 5 mg Tablet
5 mg PO HS
cholecalciferol (vitamin D3) 1,250 mcg (50,000 unit) Tablet
1,250 mcg PO QMONTH
PreserVision AREDS-2 250-90-40-1 mg Capsule
1 cap PO BID
guaifenesin 600 mg Tablet Extended Release 12hr
1,200 mg PO BID
aspirin 81 mg Tablet,Chewable
81 mg PO DAILY Qty: 30 0RF
celecoxib 200 mg Capsule
200 mg PO MOWEFR
tramadol 25 mg Tablet
25 mg PO Q8HPRN PRN (Reason: moderate pain)
fluticasone propion-salmeterol 500-50 mcg/dose Blister With Device
1 inh INHALATION BID
umeclidinium 62.5 mcg/actuation Blister With Device
1 inh INHALATION DAILY
Ohtuvayre 3 mg/2.5 mL Suspension For Nebulization
2.5 ml INHALATION BID
Discharge Orders:
Discharge Patient (As Directed); Ordered 03/20/25
Ordered By: Consuelo Del Cid
Discharge Date and Time
Print Language: ZAMBIAN
[2025-03-20] MEDS: DUONEB INH (11:23)
--- NOTE | 2025-03-20 11:25 | CHAP ---
Chica was sitting on the bed, said she's doing better. She shared background about her situation and her family. Grandchildren give her new purpose. She welcomed prayer, especially trusting in the presence of 'her angels.' Emotional and
spiritual support provided.
== END 2025-03-20 17:47 | DRG 193 ==
LOC: IMU 21:08
PROVIDERS: Nurse Practitioner Family; Student in an Organized Health Care Education/Training Program; ADMITTING PHYSICIAN Internal Medicine; ATTENDING PHYSICIAN Internal Medicine; EMERGENCY PHYSICIAN Emergency Medicine; FAMILY PHYSICIAN Internal Medicine Geriatric Medicine; OTHER PHYSICIAN Internal Medicine Critical Care Medicine
DX: J18.9 Pneumonia, unspecified organism (principal); J96.21 Acute and chronic respiratory failure with hypoxia; J44.1 Chronic obstructive pulmonary disease with (acute) exacerbation; J44.0 Chronic obstructive pulmonary disease with (acute) lower respiratory infection; I10 Essential (primary) hypertension; E78.00 Pure hypercholesterolemia, unspecified; F41.9 Anxiety disorder, unspecified; F32.A Depression, unspecified; D64.9 Anemia, unspecified; R73.9 Hyperglycemia, unspecified; H35.30 Unspecified macular degeneration; Z66 Do not resuscitate; G89.29 Other chronic pain; G47.00 Insomnia, unspecified; G47.33 Obstructive sleep apnea (adult) (pediatric); Z11.52 Encounter for screening for COVID-19; Z79.899 Other long term (current) drug therapy; Z91.199 Patient's noncompliance with other medical treatment and regimen due to unspecified reason; Z99.81 Dependence on supplemental oxygen; Z87.891 Personal history of nicotine dependence
CPT/HCPCS: 36600; 71045; 71046; 73502; 80048; 80053; 82805; 82962; 83605; 83690; 84484; 85025; 85027; 87040; 87070; 87502; 87811; 93005; 94640; 96365; 96366; 96367; 97163; 99285

== ENCOUNTER → 2025-04-24 08:03 | Outpatient (REF) | payer MEDICARE, OTHER, SELFPAY ==
[2025-04-24 10:51] LABS: Hematocrit 32.1 % (37.0-47.0); Hemoglobin 9.7 g/dL (12.0-16.0); Mean Corp Hgb Conc. 30.2 g/dL (33.0-37.0); Mean Corpuscular Volume 92.0 fL (81.0-99.0); Nucleated Red Blood Cells % 0 %; Platelet Count 223 10^3/uL (130-400); Red Cell Dist. Width 14.3 % (11.5-14.5)
[2025-04-24 11:00] LABS: Iron 40 ug/dl (37-170)
[2025-04-24 11:10] LABS: Total Iron Binding Capacity 322 ug/dl (265-497)
[2025-04-24 11:34] LABS: Ferritin 40.6 ng/ml (11.1-264.0)
[2025-04-24 12:05] LABS: Folate 6.3 ng/ml (2.76-20)
== END ==
LOC: OLABN 08:03
PROVIDERS: ATTENDING PHYSICIAN Internal Medicine Geriatric Medicine
DX: D53.9 Nutritional anemia, unspecified (principal); I10 Essential (primary) hypertension
CPT/HCPCS: 36415; 82728; 82746; 83540; 83550; 85025

== ENCOUNTER → 2025-06-21 11:02 | Outpatient (REF) | payer MEDICARE, MEDICAID, SELFPAY | LOC: HWRAD 11:02 | PROVIDERS: ATTENDING PHYSICIAN Internal Medicine Geriatric Medicine | DX: J44.9 Chronic obstructive pulmonary disease, unspecified (principal) | CPT/HCPCS: 71250 ==